=== PATIENT | male | born 1960 | race African-American/Black ===

== ENCOUNTER 2020-11-05 09:36 | Inpatient (IN) | payer MEDICARE, MEDICAID, SELFPAY ==
[2020-11-05] VITALS (11 sets, daily range): BP systolic 139–176; BP diastolic 57–78; PULSE 60–65; RESP 16–20; TEMP 36.2–37.1; O2SAT 93–96; BMI 30.2; BMI 28.4
--- NOTE | 2020-11-05 09:56 | EKG12_ITS ---
Test Reason : SOB Blood Pressure : / mmHG Vent. Rate : 064 BPM Atrial Rate : 064 BPM P-R Int : 210 ms QRS Dur : 092 ms QT Int : 422 ms P-R-T Axes : 025 004 104 degrees QTc Int : 435 ms Sinus rhythm with 1st degree A-V block Inferior infarct , age undetermined Anteroseptal infarct , age undetermined ST & T wave abnormality, consider lateral ischemia Abnormal ECG Confirmed by STEVE CERVANTES MD ([id number]), publications editor PAIGE MORALES ([id number]) on 11/09/2020 1:00:24 PM Referred By: WU Confirmed By:STEVE CERVANTES MD
--- NOTE | 2020-11-05 09:58 | EDS_ITS ---
HPI History of Present Illness Chief Complaint: Shortness of Breath Informant: patient Onset/Context/Timing Onset: Days Context: gradual Timing: Continuous Quality: Positive for Dyspnea on exertion and Orthopnea; Negative for Wheezing Current Severity: Mild Maximum Severity: Mild Worsened by: Lying flat Relieved by: Oxygen Associated Symptoms Negative for cough, rhinorrhea, post nasal drip, ear pain, fever, sore throat, subjective, chills, sweats, clear sputum, white sputum, yellow sputum or green sputum Chest Pain: Negative for None Narrative Narrative: 60-year-old male history of hypertension, diabetes and end-stage renal disease. He is normally dialyzed now on Monday. He had a full run supposedly on Monday and was post be dialyzed today. Squad was called he is at [facility] for shortness of breath. At that time his room air pulse ox was 84%. He is not on oxygen at home. He also has a history of CHF. He denies any chest pain or fever. States when he gets dialyzed now he does not of the taking off enough because his left leg continues to remain swollen. His right leg below the knee is amputated. PE Risk Factors: Negative for Cancer, OCP + Smoking + > 35, Prior DVT or PE, Recent immobilization, Recent surgery and Recent travel Prior similar symptoms: Yes Recent Illness/Hospitalization: Yes [facility] Medical History (Updated 11/05/20 @ 11:00 by Ann Marie Walters) Chronic kidney disease (CKD) Congestive heart failure (CHF) Diabetes mellitus HLD (hyperlipidemia) HTN (hypertension) Home Medications amlodipine 10 mg PO DAILY 11/05/20 [History Last Taken Unknown] aspirin 81 mg PO DAILY 11/05/20 [History Last Taken Unknown] calcium acetate(phosphat bind) 667 mg PO BID 11/05/20 [History Last Taken Unknown] carvedilol [Coreg] 25 mg PO BID 11/05/20 [History Last Taken Unknown] clonidine HCl [Catapres] 0.3 mg PO TID 11/05/20 [History Last Taken Unknown] doxazosin [Cardura] 4 mg PO QHS 11/05/20 [History Last Taken Unknown] folic acid 1 mg PO DAILY 11/05/20 [History Last Taken Unknown] hydralazine 100 mg PO TID 11/05/20 [History Last Taken Unknown] insulin lispro [Humalog KwikPen Insulin] 0 unit SUBCUT TID 11/05/20 [History Last Taken Unknown] lorazepam [Ativan] 0.5 mg PO TID PRN 11/05/20 [History Last Taken Unknown] oxymetazoline [Afrin (oxymetazoline)] 2 spray INTRANASAL Q12H PRN 11/05/20 [History Last Taken Unknown] polyethylene glycol 3350 [GlycoLax] 17 g PO DAILY 11/05/20 [History Last Taken Unknown] torsemide 100 mg PO DAILY 11/05/20 [History Last Taken Unknown] Allergy/AdvReac Type Severity Reaction Status Date / Time hydrocodone Allergy PT UNSURE Verified 11/05/20 09:38 OF REACTION metoprolol Allergy PT UNSURE Verified 11/05/20 09:38 OF REACTION Social History Smoking Status: Current some day smoker tobacco type: cigars ROS ROS ED ROS Narrative Denies recent illness. Review of Systems ROS Unobtainable: Denies due to encephalopathy Constitutional Constitutional ED: Denies chills or fever(s) Eyes Eyes: Denies change in vision ENT ENT ED: Denies ear pain or sore throat Cardiovascular Cardiovascular: Reports orthopnea; Denies chest pain or palpitations Respiratory/Chest Respiratory/Chest: Reports dyspnea and orthopnea; Denies cough, dyspnea on exertion or sputum Gastrointestinal Gastrointestinal: Denies abdominal pain, constipation, diarrhea, nausea or vomiting Genitourinary Genitourinary ED: Denies dysuria Musculoskeletal Musculoskeletal: Denies myalgias Integumentary Denies rash Neurologic Neurologic: Denies headache(s) Psychiatric Psychiatric: Denies depression Endocrine Endocrinology: Denies polyuria Hematologic/Lymphatic Hematologic/Lymphatic: Denies easy bruising Allergic/Immunologic Allergic/Immunologic ED: Denies urticaria EXAM Physical Exam Narrative Exam Narrative: Obese male no acute distress on oxygen his pulse ox is 93% on 3 L. H EENT exam unremarkable. Neck nontender no JVD. Lungs clear to auscultation. Heart regular rhythm for over 6 talk ejection murmur. Abdomen soft nontender normal bowel sounds no peritoneal signs. Moving all 4 extremities. Right low the knee amputation. Left lower extremity has 1+ pitting edema. He has a left upper arm vascular fistula for dialysis and that has a good thrill. Neurologically is awake alert with no focal motor deficits. Const Vital Signs: 11/05/20 09:40 11/05/20 09:43 11/05/20 10:07 Temperature 98.5 F Temperature Source Temporal Pulse Rate 65 Respiratory Rate 18 Respiratory Effort Short of Breath Labored Respiratory Depth Normal Respiratory Pattern Normal Blood Pressure 147/71 H Blood Pressure Mean 96 Pulse Ox 93 94 Oxygen Delivery Method Nasal Cannula Nasal Cannula Nasal Cannula Oxygen Flow Rate (L/min) 3 3 3 Positive well nourished and well developed General Appearance ED: well developed and NAD HEENT Reports moist mucous membranes atraumatic; Negative for trauma or tenderness Eyes PERRL and EOMs intact bilaterally Neck no lymphadenopathy, supple, no meningeal signs and no JVD General: Negative for tenderness Resp normal respiratory effort and clear to auscultation bilaterally Auscultation: Negative for rales, rhonchi or wheezes Cardio regular rate and regular rhythm; Negative for no murmurs GI non-tender, non-distended and no masses Auscultation: normoactive bowel sounds Palpation: soft; Negative for tender or guarding Back/Spine normal to inspection Extremity normal to inspection General Extremety ED: Yes edema; Negative for tenderness General Extremity: edema Neuro oriented x3 Sensorium / Orientation: alert, oriented to person, oriented to place and orientation impaired; Negative for confused, lethargic or stuporous Motor Exam: strength 5/5 throughout Psych mental status grossly normal Skin Lesions: no lesions Rashes: no rashes MDM MDM MDM Narrative Medical decision making narrative: 52-year-old male with shortness of breath. History of end-stage renal disease, hypertension, CHF and diabetes. He was post to be dialyzed today. He complains of orthopnea. And continued left leg swelling even after dialysis. Clinically I think this may be volume overload. Will undergo cardiac work-up. Chest x-ray is consistent with CHF and pleural effusions. He will be treated with IV Lasix. The hospitalist on page for admission. He will most likely also need dialysis. Lab Data Attestation: I reviewed the patient's lab results. Lab results narrative: CBC shows white count 9. Hemoglobin 8.5 consistent with his end-stage renal disease on dialysis. Electrolytes show sodium 131. Gap at 9. Creatinine 7.2. High-sensitivity troponin of 20 and a BNP of 2724. Labs: Laboratory Results - last 24 hr 11/05/20 11/05/20 11/05/20 09:50 09:50 09:50 WBC 9.0 RBC 3.10 L Hgb 8.5 L Hct 27.6 L MCV 89.0 MCH 27.4 MCHC 30.8 L RDW Std Deviation 52.6 H RDW Coeff of Kandis 16.3 H Plt Count 269 MPV 8.7 Immature Gran % (Auto) 0.600 Neut % (Auto) 84.8 H Lymph % (Auto) 6.0 L Chambers % (Auto) 7.2 Eos % (Auto) 1.1 Baso % (Auto) 0.3 Absolute Neuts (auto) 7.6 Absolute Lymphs (auto) 0.54 L Nucleated RBC % 0 Hypochromasia 1+ Sodium 131 L Potassium 3.9 Chloride 96 L Carbon Dioxide 26.0 Anion Gap 9 BUN 44 H Creatinine 7.25 H Estim Creat Clear Calc 11.83 Est GFR (MDRD) Af Amer 10 L Est GFR (MDRD) Non-Af 8 L BUN/Creatinine Ratio 6.1 L Glucose 205 H Calcium 8.5 Troponin I High Sens 20 B-Natriuretic Peptide 2724.4 H Radiography Chest X-Ray - ED: 1 View, Read by ED Physician and Read by Radiologist Diagnostic Testing: Radiology Impression Chest X-Ray 11/05/20 10:06 IMPRESSION: Bilateral pleural effusions left greater than right with bibasilar atelectasis. Superimposed CHF. Electronically Signed: Que Grey MD at 10:44 EDT , Service support , Portable single view chest x-ray shows bilateral pleural effusions left greater than right. And CHF. Interpreted by myself and radiologist and we agree. Rhythm Strip Rhythm Strip: Sinus Rhythm Rate: 64 Ectopy: None EKG Initial EKG: Attestation: I personally reviewed and interpreted this EKG as follows: Interpretation: Sinus Rhythm Comments: Sinus rhythm rate of 64 old inferior MS with first-degree AV block with a IA interval of 210. Discharge Plan Triage Chief Complaint: Shortness of Breath ED Provider: Jeronimo Dolan Dx/Rx/DC Orders Prescriptions: No Action lorazepam [Ativan] 0.5 mg Tablet 0.5 mg PO TID PRN (Reason: Anxiety) RF: 0 amlodipine 10 mg Tablet 10 mg PO DAILY RF: 0 aspirin 81 mg Tablet 81 mg PO DAILY RF: 0 Afrin (oxymetazoline) 0.05 % Mist 2 spray INTRANASAL Q12H PRN (Reason: Congestion) RF: 0 carvedilol [Coreg] 25 mg Tablet 25 mg PO BID RF: 0 polyethylene glycol 3350 [GlycoLax] 17 gram Powder In Packet 17 g PO DAILY RF: 0 clonidine HCl [Catapres] 0.3 mg Tablet 0.3 mg PO TID RF: 0 calcium acetate(phosphat bind) 667 mg Tablet 667 mg PO BID RF: 0 torsemide 100 mg Tablet 100 mg PO DAILY RF: 0 doxazosin [Cardura] 4 mg Tablet 4 mg PO QHS RF: 0 folic acid 1 mg Tablet 1 mg PO DAILY RF: 0 insulin lispro [Humalog KwikPen Insulin] 100 unit/mL Insulin Pen 0 unit SUBCUT TID RF: 0 hydralazine 100 mg Tablet 100 mg PO TID RF: 0 Primary Care Provider: Care Physician,No Primary
[2020-11-05 10:02] LABS: Absolute Lymphocyte Count 0.54 X10^3/uL (0.83-4.51); Absolute Neutrophil Count 7.6 X10^3/uL (2.0-7.7); Basophil# 0.03 X10^3/uL; Basophil% 0.3 % (0-1); Eosinophils% 1.1 % (0-5); Hematocrit 27.6 % (40-54); Hemoglobin 8.5 g/dL (13.0-16.5); Lymphocyte # 0.54 X10^3/ul (0.83-4.51); Mean Corp Hgb Conc 30.8 g/dL (32-36); Mean Corpuscular Hgb 27.4 pg (27.0-32.0); Mean Platelet Vol. 8.7 fl (6.2-12.0); Monocyte# 0.65 X10^3/uL; Monocyte% 7.2 % (0-10); NRBC Flagged by Analyzer 0 % (0-5); Neutrophil # 7.64 X10^3/uL (2.7-7.7); Neutrophil % 84.8 % (47-70); POSITIVE DIFFERENTIAL YES; Platelet Count 269 K/mm3 (150-450); RBC Distribution Width CV 16.3 % (11.6-14.6); RBC Distribution Width SD 52.6 fl (35.1-43.9)
[2020-11-05 10:03] LABS: Differential Indicated SCAN CRITERIA MET
--- NOTE | 2020-11-05 10:06 | RAD_ITS ---
STUDY: X-RAY CHEST REASON FOR EXAM: Male, 60 years old. Chest pain TECHNIQUE: Single AP portable view of the chest. COMPARISON: None. FINDINGS: EKG electrodes are seen. A vascular stent is seen in the left axillary region. Surgical clips are seen in the right axillary region. Moderate sized left pleural effusion. Small right pleural effusion. Bibasilar infiltration and/or atelectasis worse on the left side. This is superimposed on basilar congestion and mild degree of CHF. Normal size heart. Normal mediastinum and stacy. Normal visualized pulmonary arteries. Normal visualized aortic arch and descending thoracic aorta. Normal visualized thoracic spine. Prior fusion of the lower cervical spine There is no demonstrated abnormality of the visualized soft tissue structures of the upper abdomen. RAD/Chest 1 View (Portable) IMPRESSION: Bilateral pleural effusions left greater than right with bibasilar atelectasis. Superimposed CHF. Electronically Signed: Que Grey MD at 10:44 EDT , Service support ,
[2020-11-05 10:19] LABS: Anion Gap 9 (5-15); BUN 44 mg/dL (7-18); BUN/Creat Ratio 6.1 RATIO (10-20); Calcium,Total 8.5 mg/dL (8.5-10.1); Chloride 96 mmol/L (98-107); Creatinine, Serum 7.25 mg/dL (0.70-1.30); EST Glomerular Filtration Rate 8 mL/min (>60); Est Glom Filt Rate - Afr Amer 10 mL/min (>60); Estimated Creatinine Clearance 11.83 ml/min; Glucose 205 mg/dL (74-106); Potassium 3.9 mmol/L (3.5-5.1); Sodium Level 131 mmol/L (136-145); Troponin-I HS 20 pg/mL (3.0-78.0)
[2020-11-05] MEDS: HYDROcodone Bitartrate/Apap 5/325 Tablet PO (10:26)
[2020-11-05 10:38] LABS: Hypochromasia 1+
--- NOTE | 2020-11-05 12:04 | HP.PCM.HOS_ITS ---
HPI - General General Date of Admission: 11/05/20 HPI Narrative LESLIE REBOLLAR, is a 60 M with a PMH as outlined who presents with a complaint of shortness of breath. He usually gets his care at [facility], but is now at [facility]. He has a history of ESRD, on HD TTS, and says he doesnt think enough fluid is taken off. He had a full dialysis on Monday, but didnt think enough was taken off. He started having shortness of breath with associated orthopnea and PND. He denies any chest pain, palpitations, dizziness, nausea or vomiting. He admitted to lower extremity edema. Vitals showed BP of 158/57, [place] of 62, R of 16 and oxygen sats of 94% on 3L of oxygen. CBC showed hemoglobin of 8.5 with WBC of 9 and platelets of 269. Chemistry shows sodium of 131 with bicarb of 26 and creatinine of 7.25. BNP was 2724. Chest x-ray showed bilateral pleural effusions with the left greater than right with bibasilar atelectasis and superimposed CHF. He has been admitted to manage for acute on chronic exacerbation of heart failure as well as likely fluid overload from ESRD. [facility] Medical History (Updated 11/05/20 @ 12:[address] Jeronimo Dolan MD) Chronic kidney disease (CKD) Congestive heart failure (CHF) Diabetes mellitus HLD (hyperlipidemia) HTN (hypertension) Home Medications B complex-vitamin C-folic acid [Renal Multivitamin Formula] 1 tab PO DAILY 11/05/20 [History Last Taken Unknown] amlodipine 10 mg PO DAILY 11/05/20 [History Last Taken Unknown] aspirin 81 mg PO DAILY 11/05/20 [History Last Taken Unknown] atorvastatin [Lipitor] 80 mg PO DAILY 11/05/20 [History Last Taken Unknown] calcium acetate(phosphat bind) 667 mg PO BID 11/05/20 [History Last Taken Unknown] carvedilol [Coreg] 25 mg PO BID 11/05/20 [History Last Taken Unknown] cholecalciferol (vitamin D3) [Vitamin D3] 25 mcg PO DAILY 11/05/20 [History Last Taken Unknown] clonidine HCl [Catapres] 0.3 mg PO TID 11/05/20 [History Last Taken Unknown] doxazosin [Cardura] 4 mg PO QHS 11/05/20 [History Last Taken Unknown] folic acid 1 mg PO DAILY 11/05/20 [History Last Taken Unknown] hydralazine 100 mg PO TID 11/05/20 [History Last Taken Unknown] insulin glargine [Lantus Solostar U-100 Insulin] 18 unit SUBCUT DAILY 11/05/20 [History Last Taken Unknown] insulin lispro [Humalog KwikPen Insulin] 0 unit SUBCUT TID 11/05/20 [History Last Taken Unknown] isosorbide mononitrate 30 mg PO DAILY 11/05/20 [History Last Taken Unknown] lorazepam [Ativan] 0.5 mg PO TID PRN 11/05/20 [History Last Taken Unknown] melatonin 5 mg PO QHS 11/05/20 [History Last Taken Unknown] omeprazole 20 mg PO BID 11/05/20 [History Last Taken Unknown] oxycodone-acetaminophen [Percocet] 1 tab PO Q8H PRN 11/05/20 [History Last Taken Unknown] oxymetazoline [Afrin (oxymetazoline)] 2 spray INTRANASAL Q12H PRN 11/05/20 [History Last Taken Unknown] polyethylene glycol 3350 [GlycoLax] 17 g PO DAILY 11/05/20 [History Last Taken Unknown] torsemide 100 mg PO DAILY 11/05/20 [History Last Taken Unknown] trazodone 50 mg PO QHS 11/05/20 [History Last Taken Unknown] Allergy/AdvReac Type Severity Reaction Status Date / Time hydrocodone Allergy PT UNSURE Verified 11/05/20 09:38 OF REACTION metoprolol Allergy PT UNSURE Verified 11/05/20 09:38 OF REACTION Social History Smoking Status: Current some day smoker tobacco type: cigars ROS Constitutional Constitutional: Reports change in weight, fatigue, malaise and weakness; Denies chills or fever(s) Eyes Eyes: Denies change in vision ENT HEENT: Denies abnormal hearing, dysphagia, headache(s) or nasal congestion Cardiovascular Cardiovascular: Reports dyspnea on exertion, edema and orthopnea; Denies chest pain, lightheadedness, palpitations, paroxysmal nocturnal dyspnea, rapid heart rate or syncope Respiratory/Chest Respiratory/Chest: Reports dyspnea, excessive phlegm production, shortness of breath at rest and shortness of breath with exertion; Denies cough, hemoptysis or productive cough Gastrointestinal Gastrointestinal: Denies abdominal pain, constipation, diarrhea, nausea or vomiting Genitourinary Genitourinary: Denies burning urination or dysuria Musculoskeletal Musculoskeletal: Denies arthralgias Neurologic Neurologic: Denies confusion, dizziness, focal weakness, seizures or syncope Psychiatric Psychiatric: Denies anxiety or depression Endocrine Endocrinology: Denies change in body appearance Hematologic/Lymphatic Hematologic/Lymphatic: Denies anemia Vital Signs Vital Signs Vital Signs: 11/05/20 09:40 11/05/20 09:43 11/05/20 10:07 Temperature 98.5 F Temperature Source Temporal Pulse Rate 65 Respiratory Rate 18 Respiratory Effort Short of Breath Labored Respiratory Depth Normal Respiratory Pattern Normal Blood Pressure 147/71 H Blood Pressure Mean 96 Pulse Ox 93 94 Oxygen Delivery Method Nasal Cannula Nasal Cannula Nasal Cannula Oxygen Flow Rate (L/min) 3 3 3 11/05/20 11:40 Temperature Temperature Source Pulse Rate 62 Respiratory Rate 16 Respiratory Effort Respiratory Depth Respiratory Pattern Blood Pressure 148/57 H Blood Pressure Mean 87 Pulse Ox 94 Oxygen Delivery Method Nasal Cannula Oxygen Flow Rate (L/min) 3 Weight Weight: 216 lb 14.958 oz Body Mass Index (BMI) 30.2 Physical Exam Const alert and oriented x3 General Appearance: cooperative HEENT normocephalic, head/scalp atraumatic, hearing grossly normal bilaterally and moist oral mucous membranes Eyes PERRL, EOMs intact bilaterally and conjunctivae normal Neck no lymphadenopathy Resp Resp Narrative: diminished breath sounds bibasally, no wheezing, no crackles, on 3L of oxygen by nasal canula Cardio regular rate, regular rhythm, S1 normal heart sound, S2 normal heart sound and no murmurs GI soft to palpation and non-tender GI Narrative: mild abdominal distension with positive fluid thrill. Extremity normal to inspection and full ROM Extremity Narrative: LLEl LE pitting pedal edema, RLE BKA Peripheral Pulses: Yes pulses 2+ throughout Skin no rashes or lesions noted Neuro oriented x3, CN's II-XII intact bilaterally and moves all extremities Sensorium / Orientation: awake and alert Psych affect normal Results Lab / Micro Data Result Diagrams: 11/05/20 09:50 11/05/20 09:50 Labs: Laboratory Results - last 24 hr 11/05/20 09:50: WBC 9.0, RBC 3.10 L, Hgb 8.5 L, Hct 27.6 L, MCV 89.0, MCH 27.4, MCHC 30.8 L, RDW Std Deviation 52.6 H, RDW Coeff of Kandis 16.3 H, Plt Count 269, MPV 8.7, Immature Gran % (Auto) 0.600, Neut % (Auto) 84.8 H, Lymph % (Auto) 6.0 L, [place] % (Auto) 7.2, Eos % (Auto) 1.1, Baso % (Auto) 0.3, Absolute Neuts (auto) 7.6, Absolute Lymphs (auto) 0.54 L, Nucleated RBC % 0, Hypochromasia 1+ 11/05/20 09:50: Sodium 131 L, Potassium 3.9, Chloride 96 L, Carbon Dioxide 26.0, Anion Gap 9, BUN 44 H, Creatinine 7.25 H, Estim Creat Clear Calc 11.83, Est GFR (MDRD) Af Amer 10 L, Est GFR (MDRD) Non-Af 8 L, BUN/Creatinine Ratio 6.1 L, Glucose 205 H, Calcium 8.5, Troponin I High Sens 20 11/05/20 09:50: B-Natriuretic Peptide 2724.4 H Micro: Microbiology 11/05/20 10:30 Interface Orders SARS-CoV-2 Antigen (Rapid) - Final Rhythm Strip Rhythm Strip: Sinus Rhythm Rate: 64 Ectopy: None Radiology Impression Chest X-Ray 11/05/20 10:06 IMPRESSION: Bilateral pleural effusions left greater than right with bibasilar atelectasis. Superimposed CHF. Electronically Signed: Que Grey MD at 10:44 EDT , Service support , Assessment & Plan Assessment/Plan (1) CHF (congestive heart failure): (2) End stage chronic kidney disease: (3) Hypoxia: PLAN: #Acute on chronic exacerbation of heart failure with unknown EF * admit to PCU with telemetry * diurese with IV lasix if he's making urine * CXR showed bilateral pleural effusion, worse on right than left * consult nephrology for dialysis * monitor intake and output * fluid restriction to 1500cc daily. * CXR showed bilateral pleural effusions worse on the left than the right. * EKG showed questionable t wave inversions in lateral leads. initial tropoinn * #ESRD: * on HD T/T/S. doesnt think enough fluid is being taken off. * says he used to go for dialysis in [place] where 4-5L of fluid was taken off; now he goes to [place], where only 3-3.5L of fluid is taken off * hasnt yet had dialysis today * consult nephrology for dialysis * #Hypertension: * on amlodipine, carvedilol and hydralazine as well as clonidine and torsemide. 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 #Type 2 diabetes mellitus * on lantus 18 units daily. ISS. Accuchecks ACHS * #Hyperlipidemia: on statin. DVT prophylaxis: lovenox, renally dosed Code status: full code * Patient counseled extensively about different types of CODE STATUS including full code, DNR CCA and DNR CCA. Patient elects to be full code, and would want to be intubated and have CPR if needed. * Total [id number] time 17 minutes. Charges/Coding Visit Charges Inpatient E&M: 92957 Init Hosp L3 Procedures Hospitalists Procedures: 47477 Advncd Care Plan 30 Min
[2020-11-05] MEDS: morphine 8 MG/ML Syringe 6 MG IV (12:32)
[2020-11-05] MEDS: Furosemide 100 MG/10 ML Vial 60 MG IV (12:32)
--- NOTE | 2020-11-05 13:19 | PCS.PANDOC ---
PANDEMIC DOCUMENTATION INITIATED: Date: 11/02/2020 Time: 190
[2020-11-05] MEDS: cloNIDine HCl 0.1 MG Tablet 0.3 MG PO (13:45)
[2020-11-05] MEDS: LORazepam 0.5 MG Tablet PO ×2 (13:45→21:40)
[2020-11-05] MEDS: Ondansetron 4 MG/2 ML Vial IV (13:46)
[2020-11-05] MEDS: hydrALAZINE 50 MG Tablet 100 MG PO (13:46)
[2020-11-05] MEDS: 0.9% Saline Lock 10 ML Syringe IV ×2 (13:46→17:32)
[2020-11-05 14:30] LABS: Troponin-I HS 18 pg/mL (3.0-78.0)
[2020-11-05] MEDS: Calcium Acetate 667 MG Capsule PO (16:13)
[2020-11-05] MEDS: Carvedilol 25 MG Tablet PO (16:13)
[2020-11-05 17:19] LABS: Troponin-I HS 20 pg/mL (3.0-78.0)
[2020-11-05 17:30] LABS: Bedside Glucose 159 mg/dL (70-110)
[2020-11-05] MEDS: Furosemide 40 MG/4 ML Vial IV (17:32)
[2020-11-05] MEDS: Pantoprazole Sodium 20 MG Tablet PO (17:32)
[2020-11-05] MEDS: oxyCODONE 5 MG Tablet 10 MG PO (19:55)
[2020-11-05] MEDS: Sodium Chloride 0.65% 1 SPRAY SPRAY.BTL 2 SPRAY NASAL (21:41)
[2020-11-05] MEDS: MELATONIN 10 MG TABLET 5 MG PO (22:48)
[2020-11-05] MEDS: traZODone 50 MG Tablet PO (22:48)
[2020-11-05] MEDS: Atorvastatin Calcium 80 MG Tablet PO (22:48)
[2020-11-05] MEDS: Insulin Lispro 100 UNIT/ML INSULN.PEN SC (22:49)
[2020-11-05 23:41] LABS: Bedside Glucose 200 mg/dL (70-110)
[2020-11-06] VITALS (17 sets, daily range): BP systolic 128–177; BP diastolic 57–78; PULSE 57–73; RESP 14–18; TEMP 36.6–37.5; O2SAT 89–100
--- NOTE | 2020-11-06 | FLU_PTH ---
PATIENT: LESLIE REBOLLAR LOC: [facility] U#:[id number] AGE/SX: 60/M ROOM: [facility] RE11/05/[address]: Dr. Anabelle Moore DO : 1960 BED: 1 DIS: 11/14/2020 SPEC #: [id number] RECD: 11/06/20 14:56 STATUS: SOUT REQ #: [id number] KENRICK: 11/06/20 00:[address]: Anabelle Moore DEPT: CYTOLOGY RECD BY: Jamie Gonzalez ENTERED: 11/09/20 08:06 SP TYPE: Fluid OTHR DR: MD Dr. Judith Jacques MD Dr. Kathryn Lee, DO Dr. Nana Yaa Koram, MD Tissues: THORACIC FLUID Procedures: Special Stain Group II Surgery Specimen Level IV Cytospin Fluid Comments: @ Ordering doctor for SSII edited from to @ by RGOOD at 11/09/20 1333 @ Ordering doctor for SUIV edited from to @ by RGOOD at 11/09/20 1333 @ Ordering doctor for CYSPIN edited from to @ by RGOOD at 11/09/20 1333 @ Submitting doctor edited from to @ by RGOOD at 11/09/20 1333 @ Ordering doctor for SSII edited from to @ by RGOOD at 11/10/20 1024 @ Ordering doctor for SUIV edited from to @ by RGOOD at 11/10/20 1024 @ Ordering doctor for CYSPIN edited from to @ by RGOOD at 11/10/20 1024 @ Submitting doctor edited from to @ by HOANGOD at 11/10/20 1024 HEADER OPERATION: Thoracentesis left chest PRE-OP DIAGNOSIS: Pleural effusion, CHF TISSUE SUBMITTED: Thoracentesis fluid for cytology DIAGNOSIS CYTOLOGY Thoracentesis fluid for cytology (cytospin and cell block): Negative for malignant cells. See comment. SJ:sanjay 11/10/2020 COMMENT Clinical correlation and appropriate follow up are necessary. CYTOLOGY STUDY Slides are reviewed. CYTOLOGY GROSS Received is 100 ml of yellow cloudy fluid labeled with the patient's name and and designated per the requisition as thoracentesis. Submitted for cytology preparation including cell block. / sanjay 11/09/2020 TC:5 CPT: 28221, 59919
[2020-11-06] MEDS: hydrALAZINE 50 MG Tablet 100 MG PO ×4 (00:45→21:27)
[2020-11-06] MEDS: cloNIDine HCl 0.1 MG Tablet 0.3 MG PO ×4 (00:45→21:27)
[2020-11-06] MEDS: Doxazosin 4 MG Tablet PO ×2 (00:45→21:27)
--- NOTE | 2020-11-06 01:12 | DIALYSIS ---
Pt tolerated 3hr HD tx well. Net UF -4400ml. See flow record for tx data.
[2020-11-06] MEDS: 0.9% Saline Lock 10 ML Syringe IV ×2 (04:27→18:57)
[2020-11-06] MEDS: Ondansetron 4 MG/2 ML Vial IV (04:27)
[2020-11-06] MEDS: Acetaminophen 325 MG Tablet PO (04:28)
[2020-11-06] MEDS: oxyCODONE 5 MG Tablet 10 MG PO ×2 (04:28→15:10)
[2020-11-06 06:46] LABS: Bedside Glucose 223 mg/dL (70-110)
[2020-11-06 07:13] LABS: Absolute Neutrophil Count 5.9 X10^3/uL (2.0-7.7); Basophil# 0.03 X10^3/uL; Basophil% 0.4 % (0-1); Eosinophil# 0.11 X10^3/uL; Eosinophils% 1.5 % (0-5); Hematocrit 25.1 % (40-54); Hemoglobin 7.9 g/dL (13.0-16.5); Lymphocyte % 8.3 % (19-41); Mean Corp Hgb Conc 31.5 g/dL (32-36); Mean Corpuscular Hgb 27.4 pg (27.0-32.0); Mean Corpuscular Volume 87.2 fL (80-94); Monocyte% 8.3 % (0-10); NRBC Flagged by Analyzer 0 % (0-5); Neutrophil % 81.1 % (47-70); POSITIVE DIFFERENTIAL YES; Platelet Count 249 K/mm3 (150-450); RBC Distribution Width CV 16.6 % (11.6-14.6); RBC Distribution Width SD 52.9 fl (35.1-43.9); Red Blood Count 2.88 M/mm3 (4.6-6.2); White Blood Count 7.3 K/mm3 (4.4-11.0)
[2020-11-06 07:22] LABS: Differential Indicated SCAN CRITERIA MET
[2020-11-06 07:40] LABS: Anion Gap 6 (5-15); BUN 29 mg/dL (7-18); BUN/Creat Ratio 5.6 RATIO (10-20); Calcium,Total 8.1 mg/dL (8.5-10.1); Chloride 97 mmol/L (98-107); Creatinine, Serum 5.15 mg/dL (0.70-1.30); EST Glomerular Filtration Rate 12 mL/min (>60); Est Glom Filt Rate - Afr Amer 15 mL/min (>60); Estimated Creatinine Clearance 17.16 ml/min; Glucose 217 mg/dL (74-106); Potassium 4.1 mmol/L (3.5-5.1); Sodium Level 132 mmol/L (136-145)
[2020-11-06] MEDS: Insulin Lispro 100 UNIT/ML INSULN.PEN SC ×3 (08:27→21:28)
[2020-11-06] MEDS: Vitamin B Comp W-C Capsule 1 CAP PO (08:29)
[2020-11-06] MEDS: Aspirin 81 MG TAB.CHEW PO (08:29)
[2020-11-06] MEDS: LORazepam 0.5 MG Tablet PO ×2 (08:29→16:34)
[2020-11-06] MEDS: Polyethylene Glycol 3350 17 GM PACKET PO (08:29)
[2020-11-06] MEDS: Pantoprazole Sodium 20 MG Tablet PO ×2 (08:30→21:27)
[2020-11-06] MEDS: amLODIPine 10 MG Tablet PO (08:30)
[2020-11-06] MEDS: Furosemide 40 MG/4 ML Vial IV ×2 (08:30→18:57)
[2020-11-06] MEDS: Carvedilol 25 MG Tablet PO ×2 (08:30→16:37)
[2020-11-06] MEDS: Folic Acid 1 MG Tablet PO (08:30)
[2020-11-06] MEDS: Calcium Acetate 667 MG Capsule PO ×2 (08:30→16:37)
[2020-11-06] MEDS: Isosorbide Mononitrate 30 MG Tablet PO (08:31)
[2020-11-06] MEDS: Cholecalciferol (VIT D3) 25 MCG TABLET (1,000 UNITS) PO (08:31)
--- NOTE | 2020-11-06 09:23 | CON.PCM.RE_ITS ---
Assessment & Plan Assessment/Plan (1) End stage chronic kidney disease: (2) Anemia: (3) CHF (congestive heart failure): (4) Hypoxia: PLAN: Patient usually dialyzes on Monday and Monday. Patient had hemodialysis and last night with 4.4 L ultrafiltration. We will plan for another session today with goal of fluid removal of 4 L. Hemodialysis access is left upper extremity fistula. Hemoglobin below target. We will give the patient 1 dose of RONNY. Patient has bilateral pleural effusion with atelectasis. He will benefit from left-sided paracentesis discussed this with the primary service.. On oxygen to keep oxygen saturation more than 92% Rest of the treatment as per the primary service. Discussed with Dr. Treasure Vinson MD HPI Consult Data Date of Consult: 11/06/20 HPI Narrative HPI Narrative: LESLIE REBOLLAR, is a 60 M past medical history of end-stage renal disease and TTS hemodialysis schedule, hypertension, CHF, diabetes and hyperlipidemia. Patient usually gets dialyzed at [facility]. Patient is currently residing at [facility]. Patient was brought from there to the hospital for acute shortness of breath. Patient was found to have CHF with bilateral pleural effusion left more than right. I was contacted yesterday and we did dialysis last night with 4.4 L fluid removal. Patient still complained of shortness of breath and legs edema. He has right below-knee amputation. His left leg is edematous +3 No chest pain. No nausea no vomiting. Review of system: 12 system review is negative except what mentioned in HPI [facility] Medical History (Updated 11/06/20 @ 09:[address] Gurvinder Vinson MD) Chronic kidney disease (CKD) Congestive heart failure (CHF) Diabetes mellitus HLD (hyperlipidemia) HTN (hypertension) Home Medications B complex-vitamin C-folic acid [Renal Multivitamin Formula] 1 tab PO DAILY 11/05/20 [History Last Taken 11/04/20 09:00] amlodipine 10 mg PO DAILY 11/05/20 [History Last Taken 11/04/20 09:00] aspirin 81 mg PO DAILY 11/05/20 [History Last Taken 11/04/20 09:00] atorvastatin [Lipitor] 80 mg PO DAILY 11/05/20 [History Last Taken 11/04/20 21:00] calcium acetate(phosphat bind) 667 mg PO BID 11/05/20 [History Last Taken 11/04/20 17:00] carvedilol [Coreg] 25 mg PO BID 11/05/20 [History Last Taken 11/04/20 21:00] cholecalciferol (vitamin D3) [Vitamin D3] 25 mcg PO DAILY 11/05/20 [History Last Taken 11/04/20 09:00] clonidine HCl [Catapres] 0.3 mg PO TID 11/05/20 [History Last Taken 11/05/20 14:00] doxazosin [Cardura] 4 mg PO QHS 11/05/20 [History Last Taken 11/04/20 21:00] folic acid 1 mg PO DAILY 11/05/20 [History Last Taken 11/04/20 09:00] hydralazine 100 mg PO TID 11/05/20 [History Last Taken 11/05/20 14:00] insulin glargine [Lantus Solostar U-100 Insulin] 18 unit SUBCUT DAILY 11/05/20 [History Last Taken 11/04/20 21:00] insulin lispro [Humalog KwikPen Insulin] 0 unit SUBCUT TID 11/05/20 [History Last Taken 11/05/20 12:00] isosorbide mononitrate 30 mg PO DAILY 11/05/20 [History Last Taken 11/04/20 09:00] lorazepam [Ativan] 0.5 mg PO TID PRN 11/05/20 [History Last Taken 11/05/20 14:00] melatonin 5 mg PO QHS 11/05/20 [History Last Taken 11/04/20 21:00] omeprazole 20 mg PO BID 11/05/20 [History Last Taken 11/04/20 21:00] oxycodone-acetaminophen [Percocet] 1 tab PO Q8H PRN 11/05/20 [History Last Taken Unknown] oxymetazoline [Afrin (oxymetazoline)] 2 spray INTRANASAL Q12H PRN 11/05/20 [History Last Taken 11/05/20 09:00] polyethylene glycol 3350 [GlycoLax] 17 g PO DAILY 11/05/20 [History Last Taken 11/04/20 09:00] torsemide 100 mg PO DAILY 11/05/20 [History Last Taken 11/04/20 09:00] trazodone 50 mg PO QHS 11/05/20 [History Last Taken 11/04/20 21:00] Allergy/AdvReac Type Severity Reaction Status Date / Time hydrocodone Allergy PT UNSURE Verified 11/05/20 09:38 OF REACTION metoprolol Allergy PT UNSURE Verified 11/05/20 09:38 OF REACTION Social History Smoking Status: Current some day smoker tobacco type: cigars Physical Exam Narrative Patient is awake alert oriented. Neck no JVD. Mouth moist mucosa. Head atraumatic normocephalic. Eye. Normal conjunctiva. Heart S1-S2 RRR. Chest decreased breath sounds over both lung spaces left more than right. Abdomen: Soft positive bowel sounds. No tenderness Neurology: Awake alert oriented x3 no focal Extremity: +3 edema of left lower extremity Lab / Micro Data Result Diagrams: 11/06/20 06:55 11/06/20 06:55 Labs: Laboratory Results - last 24 hr 11/05/20 09:50: WBC 9.0, RBC 3.10 L, Hgb 8.5 L, Hct 27.6 L, MCV 89.0, MCH 27.4, MCHC 30.8 L, RDW Std Deviation 52.6 H, RDW Coeff of Kandis 16.3 H, Plt Count 269, MPV 8.7, Immature Gran % (Auto) 0.600, Neut % (Auto) 84.8 H, Lymph % (Auto) 6.0 L, [place] % (Auto) 7.2, Eos % (Auto) 1.1, Baso % (Auto) 0.3, Absolute Neuts (auto) 7.6, Absolute Lymphs (auto) 0.54 L, Nucleated RBC % 0, Hypochromasia 1+ 11/05/20 09:50: Sodium 131 L, Potassium 3.9, Chloride 96 L, Carbon Dioxide 26.0, Anion Gap 9, BUN 44 H, Creatinine 7.25 H, Estim Creat Clear Calc 11.83, Est GFR (MDRD) Af Amer 10 L, Est GFR (MDRD) Non-Af 8 L, BUN/Creatinine Ratio 6.1 L, Glucose 205 H, Calcium 8.5, Troponin I High Sens 20 11/05/20 09:50: B-Natriuretic Peptide 2724.4 H 11/05/20 14:00: Troponin I High Sens 18 11/05/20 15:20: Troponin I High Sens 20 11/05/20 16:17: POC Glucose 159 H 11/05/20 22:47: POC Glucose 200 H 11/06/20 06:27: POC Glucose 223 H 11/06/20 06:55: WBC 7.3, RBC 2.88 L, Hgb 7.9 L, Hct 25.1 L, MCV 87.2, MCH 27.4, MCHC 31.5 L, RDW Std Deviation 52.9 H, RDW Coeff of Kandis 16.6 H, Plt Count 249, MPV 9.0, Immature Gran % (Auto) 0.400, Neut % (Auto) 81.1 H, Lymph % (Auto) 8.3 L, [place] % (Auto) 8.3, Eos % (Auto) 1.5, Baso % (Auto) 0.4, Absolute Neuts (auto) 5.9, Absolute Lymphs (auto) 0.60 L, Nucleated RBC % 0 11/06/20 06:55: Sodium 132 L, Potassium 4.1, Chloride 97 L, Carbon Dioxide 29.0, Anion Gap 6, BUN 29 H, Creatinine 5.15 H, Estim Creat Clear Calc 17.16, Est GFR (MDRD) Af Amer 15 L, Est GFR (MDRD) Non-Af 12 L, BUN/Creatinine Ratio 5.6 L, Glucose 217 H, Calcium 8.1 L Micro: Microbiology 11/05/20 10:30 Interface Orders SARS-CoV-2 Antigen (Rapid) - Final Rhythm Strip Rhythm Strip: Sinus Rhythm Rate: 64 Ectopy: None Radiology Impression Chest X-Ray 11/05/20 10:06 IMPRESSION: Bilateral pleural effusions left greater than right with bibasilar atelectasis. Superimposed CHF. Electronically Signed: Que Grey MD at 10:44 EDT , Service support ,
--- NOTE | 2020-11-06 09:48 | US_ITS ---
PROCEDURE: ULTRASOUND GUIDED THORACENTESIS. DATE: 11/06/2020. INDICATION: Male, 60 years old. Left pleural effusion PHYSICIAN: Que Grey M.D. PROCEDURE: The risks, benefits, and alternatives to the procedure were explained to the patient. The specific risks of bleeding, infection, and pneumothorax requiring chest tube insertion were discussed and accepted. Written informed consent was obtained. Ultrasonographic evaluation of the left lower pleural space was carried out. An adequate pocket was identified. The patient was placed in the sitting, upright position. The overlying skin was prepped and draped in sterile fashion. 1% lidocaine was administered subcutaneously for local anesthesia. Under ultrasound guidance, a 5 [place] thoracentesis needle/catheter system was advanced into the left posterior lower pleural fluid collection. Approximately 2000 mL of edxter-colored fluid was drained. The catheter was removed, and a sterile dressing was applied. A specimen was collected and sent to the laboratory for analysis, as requested by the referring clinician. The patient tolerated the procedure well. A chest x-ray was ordered. US/Thoracentesis W US IMPRESSION: Ultrasound-guided left thoracentesis. Electronically Signed: Que Grey MD at 14:46 EDT , Service support ,
--- NOTE | 2020-11-06 09:50 | CASEMGMT ---
Patient is from [facility]. PAMELA called [facility] and left a message requesting Rosina in admissions call PAMELA back. Juli PFEIFFER
[2020-11-06] MEDS: Epoetin Alfa epbx 10,000 UNITS/ML 8000 UNIT IV (11:08)
[2020-11-06 11:11] LABS: Bedside Glucose 227 mg/dL (70-110)
[2020-11-06 11:35] LABS: Bedside Glucose 224 mg/dL (70-110)
--- NOTE | 2020-11-06 11:35 | CASEMGMT ---
SW received a return call from Rosina at [facility]. She said patient does not want to be at [facility] so their SW was working on getting him to another facility closer to home in [place]. She said it would probably be best to just move him to another facility from [facility]. The 2 facilities they were working on were [facility] and [facility]. SW went to patient's room. SW introduced self and role at [facility]. SW asked patient about going to another facility. He said he has to go back to [facility] as all of his stuff is there including his vehicle. SW asked if [facility] and [facility] were the correct facilities. He said he is not sure, but one was in [place] and the other was in [place]. PAMELA called Rosina at [facility] back and told her this information. She said if that is what he wants then that is fine, but it will be even longer before he will get to transfer. He will not be allowed to drive his vehicle to the next [place] [facility] facility. She said they would be more than willing to bring his stuff to [facility]. PAMELA told her SW will check with patient again. Juli Ladd MSW [place]
--- NOTE | 2020-11-06 11:48 | PN.HOSP_ITS ---
Subjective Subjective Patient seen and examined. He feels her shortness of breath is much better today. He has no other complaints. He is for dialysis today. Review of systems otherwise negative. He had 4.4L of fluid removed during dialysis yesterday. Objective Data Objective Data Vital Signs: Vital Signs Temp Pulse Resp BP Pulse Ox 98.3 F 58 L 18 145/73 H 99 11/06/20 10:46 11/06/20 10:46 11/06/20 10:46 11/06/20 10:46 11/06/20 11:01 Oxygen Flow Rate (L/min) 4 Oxygen Delivery Method Nasal Cannula Weight: 209 lb 7.026 oz Body Mass Index (BMI) 28.4 Intake & Output: Intake and Output for Last 24 Hours 11/04/20 11/05/20 11/06/20 23:59 23:59 23:59 Intake Total 240 / 240 Output Total 250 / 250 4400 / 4400 Balance -10 / -10 -4400 / -4400 Lab / Micro Data Result Diagrams: 11/06/20 06:55 11/06/20 06:55 Labs: Laboratory Results - last 24 hr 11/05/20 14:00: Troponin I High Sens 11/05/20 15:20: Troponin I High Sens 11/05/20 16:17: POC Glucose 159 H 11/05/20 22:47: POC Glucose 200 H 11/06/20 06:27: POC Glucose 223 H 11/06/20 06:55: WBC 7.3, RBC 2.88 L, Hgb 7.9 L, Hct 25.1 L, MCV 87.2, MCH 27.4, MCHC 31.5 L, RDW Std Deviation 52.9 H, RDW Coeff of Kandis 16.6 H, Plt Count 249, MPV 9.0, Immature Gran % (Auto) 0.400, Neut % (Auto) 81.1 H, Lymph % (Auto) 8.3 L, [place] % (Auto) 8.3, Eos % (Auto) 1.5, Baso % (Auto) 0.4, Absolute Neuts (auto) 5.9, Absolute Lymphs (auto) 0.60 L, Nucleated RBC % 0 11/06/20 06:55: Sodium 132 L, Potassium 4.1, Chloride 97 L, Carbon Dioxide 29.0, Anion Gap 6, BUN 29 H, Creatinine 5.15 H, Estim Creat Clear Calc 17.16, Est GFR (MDRD) Af Amer 15 L, Est GFR (MDRD) Non-Af 12 L, BUN/Creatinine Ratio 5.6 L, Glucose 217 H, Calcium 8.1 L 11/06/20 08:25: POC Glucose 227 H 11/06/20 11:11: POC Glucose 224 H Micro: Microbiology 11/05/20 10:30 Interface Orders SARS-CoV-2 Antigen (Rapid) - Final Rhythm Strip Rhythm Strip: Sinus Rhythm Rate: 64 Ectopy: None Physical Exam Const alert and oriented x3 General Appearance: cooperative Exam Limitations: no limitations HEENT normocephalic, head/scalp atraumatic, hearing grossly normal bilaterally and moist oral mucous membranes Head and Scalp: normocephalic Eyes PERRL, EOMs intact bilaterally and conjunctivae normal Neck no lymphadenopathy Resp Resp Narrative: diminished breath sounds bibasally, no wheezing, no crackles, on 4L of oxygen by nasal canula Cardio regular rate, regular rhythm, S1 normal heart sound, S2 normal heart sound and no murmurs GI normal to inspection, nondistended, normoactive bowel sounds, soft to palpation and non-tender Extremity normal to inspection and full ROM Extremity Narrative: LLE LE pitting pedal edema, RLE BKA Peripheral Pulses: Yes pulses 2+ throughout Skin no rashes or lesions noted Neuro oriented x3, CN's II-XII intact bilaterally and moves all extremities Sensorium / Orientation: awake and alert Psych affect normal Assessment & Plan Assessment/Plan (1) CHF (congestive heart failure): (2) End stage chronic kidney disease: (3) Hypoxia: PLAN: #Acute on chronic exacerbation of heart failure with unknown EF * feels better today after he had dialysis * still makes urine so on IV lasix 40mg bid * had removal of 4.4L of fluid yesterday * monitor intake and output. * Fluid restriction to 1500cc daily * * * #ESRD: * on HD T/T/S. doesnt think enough fluid is being taken off. * had dialysis yesterday, for dialysis today as well. * #Hypertension: * on amlodipine, carvedilol and hydralazine as well as clonidine and torsemide. * torsemide held as patient is being given lasix * #Right BKA: says this was as a result of post surgical infection of right foot. #Type 2 diabetes mellitus * on lantus 18 units daily. ISS. Accuchecks ACHS * #Hyperlipidemia: on statin. DVT prophylaxis: lovenox, renally dosed Code status: full code * Charges/Coding Visit Charges Inpatient E&M: 25933 Subs Hosp L3
--- NOTE | 2020-11-06 13:17 | DIALYSIS ---
Hemodialysis complete via left upper arm AV graft with 4 liters fluid removed. Stasis obtained after #15 gauge needles removed. Pt tolerated treatment without difficulty.
--- NOTE | 2020-11-06 14:30 | RAD_ITS ---
STUDY: X-RAY CHEST REASON FOR EXAM: Male, 60 years old. Post thoracentesis TECHNIQUE: AP inspiration and expiration views following thoracocentesis. COMPARISON: Comparison is made with prior study 11/05/2020. FINDINGS: The patient is status post left thoracentesis. Minimal residual pleural parenchymal changes seen at the left lung base. Stable small right pleural effusion. No evidence of pneumothorax. RAD/Chest Insp/Exp 2 View IMPRESSION: Status post left thoracentesis. There is no evidence of pneumothorax. Electronically Signed: Que Grey MD at 14:44 EDT , Service support ,
[2020-11-06] MEDS: Lidocaine 2% (5ml sdv) 5 ML VIAL.MPF 1 ML INFILT (14:46)
[2020-11-06 15:29] LABS: Body Fluid Mononuclear WBC # 0.058 10^3/uL; Body Fluid Mononuclear WBC % 47.2 %; Body Fluid Polynuclear WBC # 0.065 10^3/uL; Body Fluid Polynuclear WBC % 52.8 %; Body Fluid Total Cells Counted 0.126 10^3/ul; White Blood Count/Body Fluid 0.123 10^3/uL
[2020-11-06 16:00] LABS: LDH,Body Fluid 59 Units/l (Not Establ.); Protein, Body Fluid 2.9 g/dL (Not Establ.)
[2020-11-06 17:15] LABS: Bedside Glucose 268 mg/dL (70-110)
[2020-11-06 17:21] LABS: Lymphocytes 34 %; Monocytes 11 %; Neutrophil (Segs) 50 %; Other Cell Type/BF 5 %
[2020-11-06 17:24] LABS: Appearance/Body Fluid CLEAR; Auto B Fluid Analyzer BKGD Ct COUNTS W/IN LIMITS (W/IN LIMITS); Body Fluid QC Type(s) BF1Q; Color/Body Fluid LT YEL; Red Cell Count/Body Fluid 11 /mm3; Source- Body Fluid THORACENTESIS
--- NOTE | 2020-11-06 17:30 | RAD_ITS ---
STUDY: X-RAY CHEST REASON FOR EXAM: Male, 60 years old. post thoracentesis changes in lung sounds TECHNIQUE: Single AP portable view of the chest. COMPARISON: Same day, 2:27 PM FINDINGS: No pneumothorax is seen. Significantly improved left pleural effusion which is now only mild. No other changes since 3 hours earlier. Electronically Signed: Henry Dukes MD at 18:58 EDT , Service support , RAD/Chest 1 View (Portable)
[2020-11-06] MEDS: Atorvastatin Calcium 80 MG Tablet PO (21:27)
[2020-11-06] MEDS: traZODone 50 MG Tablet PO (21:27)
[2020-11-06] MEDS: Sodium Chloride 0.65% 1 SPRAY SPRAY.BTL 2 SPRAY NASAL (21:27)
[2020-11-06] MEDS: MELATONIN 10 MG TABLET 5 MG PO (21:27)
[2020-11-06 21:51] LABS: Bedside Glucose 229 mg/dL (70-110)
[2020-11-07] VITALS (13 sets, daily range): BP systolic 146–159; BP diastolic 52–69; PULSE 62–67; RESP 16–18; TEMP 36.2–36.7; O2SAT 70–100
[2020-11-07] MEDS: oxyCODONE 5 MG Tablet 10 MG PO ×3 (00:14→21:44)
[2020-11-07] MEDS: LORazepam 0.5 MG Tablet PO ×4 (00:14→22:34)
[2020-11-07] MEDS: Acetaminophen 325 MG Tablet PO (00:15)
[2020-11-07] MEDS: hydrALAZINE 50 MG Tablet 100 MG PO ×3 (06:45→21:45)
[2020-11-07] MEDS: cloNIDine HCl 0.1 MG Tablet 0.3 MG PO ×3 (06:45→21:50)
[2020-11-07] MEDS: Insulin Lispro 100 UNIT/ML INSULN.PEN SC ×4 (06:46→21:45)
[2020-11-07 06:56] LABS: Bedside Glucose 218 mg/dL (70-110)
[2020-11-07 07:29] LABS: Absolute Lymphocyte Count 0.55 X10^3/uL (0.83-4.51); Absolute Neutrophil Count 6.2 X10^3/uL (2.0-7.7); Basophil# 0.02 X10^3/uL; Basophil% 0.3 % (0-1); Eosinophil# 0.19 X10^3/uL; Eosinophils% 2.5 % (0-5); Hematocrit 25.7 % (40-54); Hemoglobin 7.7 g/dL (13.0-16.5); Lymphocyte # 0.55 X10^3/ul (0.83-4.51); Lymphocyte % 7.3 % (19-41); Mean Corpuscular Hgb 26.9 pg (27.0-32.0); Mean Corpuscular Volume 89.9 fL (80-94); Mean Platelet Vol. 9.2 fl (6.2-12.0); Monocyte# 0.61 X10^3/uL; NRBC Flagged by Analyzer 0 % (0-5); Neutrophil # 6.17 X10^3/uL (2.7-7.7); Neutrophil % 81.4 % (47-70); POSITIVE DIFFERENTIAL YES; Platelet Count 256 K/mm3 (150-450); RBC Distribution Width CV 16.3 % (11.6-14.6); RBC Distribution Width SD 53.1 fl (35.1-43.9); Red Blood Count 2.86 M/mm3 (4.6-6.2); White Blood Count 7.6 K/mm3 (4.4-11.0)
[2020-11-07 07:36] LABS: Differential Indicated SCAN CRITERIA MET
[2020-11-07 07:41] LABS: Anion Gap 6 (5-15); BUN 30 mg/dL (7-18); BUN/Creat Ratio 5.9 RATIO (10-20); Calcium,Total 8.2 mg/dL (8.5-10.1); Chloride 98 mmol/L (98-107); Creatinine, Serum 5.07 mg/dL (0.70-1.30); EST Glomerular Filtration Rate 13 mL/min (>60); Est Glom Filt Rate - Afr Amer 15 mL/min (>60); Estimated Creatinine Clearance 17.43 ml/min; Glucose 219 mg/dL (74-106); Potassium 4.1 mmol/L (3.5-5.1); Sodium Level 132 mmol/L (136-145)
[2020-11-07] MEDS: Vitamin B Comp W-C Capsule 1 CAP PO (10:04)
[2020-11-07] MEDS: amLODIPine 10 MG Tablet PO (10:04)
[2020-11-07] MEDS: Calcium Acetate 667 MG Capsule PO ×2 (10:05→16:28)
[2020-11-07] MEDS: Folic Acid 1 MG Tablet PO (10:05)
[2020-11-07] MEDS: Aspirin 81 MG TAB.CHEW PO (10:05)
[2020-11-07] MEDS: Carvedilol 25 MG Tablet PO ×2 (10:05→16:28)
[2020-11-07] MEDS: Isosorbide Mononitrate 30 MG Tablet PO (10:06)
[2020-11-07] MEDS: Polyethylene Glycol 3350 17 GM PACKET PO (10:07)
[2020-11-07] MEDS: Pantoprazole Sodium 20 MG Tablet PO ×2 (10:07→21:45)
[2020-11-07] MEDS: Cholecalciferol (VIT D3) 25 MCG TABLET (1,000 UNITS) PO (10:07)
[2020-11-07] MEDS: Furosemide 40 MG/4 ML Vial IV (10:07)
--- NOTE | 2020-11-07 10:44 | PN.RENAL_ITS ---
Subjective Subjective Patient is less shortness of breath. Edema is better Had left-sided thoracentesis yesterday with 2 L removal No nausea no vomiting Objective Data Objective Data Vital Signs: Vital Signs Temp Pulse Resp BP Pulse Ox 97.7 F L 67 18 159/69 H 95 11/07/20 09:21 11/07/20 09:21 11/07/20 09:21 11/07/20 09:21 11/07/20 09:21 Oxygen Flow Rate (L/min) [3] 4 Oxygen Flow Rate (L/min) [2] 4 Oxygen Flow Rate (L/min) [1 ( 4 Initial Baseline)] Oxygen Flow Rate (L/min) [ 2 AMBULATING with Oxygen #1] Oxygen Flow Rate (L/min) [At 2 REST with Oxygen] Oxygen Flow Rate (L/min) [At 0 REST on Room Air] Oxygen Flow Rate (L/min) 2 Oxygen Delivery Method [4] Room Air Oxygen Delivery Method [3] Nasal Cannula Oxygen Delivery Method [2] Nasal Cannula Oxygen Delivery Method [1 ( Nasal Cannula Initial Baseline)] Oxygen Delivery Method Nasal Cannula Weight: 86.3 kg Body Mass Index (BMI) 28.4 Intake & Output: Intake and Output for Last 24 Hours 11/05/20 11/06/20 11/07/20 23:59 23:59 23:59 Intake Total 240 / 240 480 / 720 360 / 360 Output Total 250 / 250 8700 / 8700 Balance -10 / -10 -8220 / -7980 360 / 360 Lab / Micro Data Result Diagrams: 11/07/20 06:54 11/07/20 06:54 Labs: Laboratory Results - last 24 hr 11/06/20 08:25: POC Glucose 227 H 11/06/20 11:11: POC Glucose 224 H 11/06/20 14:25: Fluid Glucose 214 H, Fluid Total Protein 2.9, Fluid LDH 59 11/06/20 14:25: Fluid Source THORACENTESIS, Fluid Color LT YEL, Fluid Appearance CLEAR, Fluid WBC 0.123, Fluid RBC 11, Fluid Tot Cell Count 0.126, Fld Polynuclear WBCs # 0.065, Fld Polynuclear WBCs % 52.8, Fluid Mononuclear WBCs 0.058, Fld Mononuclear WBCs % 47.2, Fluid Neutrophils 50, Fluid Lymphocytes 34, Fluid Monocytes 11, Fluid Other Cells 5, Fl Pathologist Comment May follow, Fluid Comment 2 SEE COMMENT 11/06/20 16:32: POC Glucose 268 H 11/06/20 21:26: POC Glucose 229 H 11/07/20 06:44: POC Glucose 218 H 11/07/20 06:54: WBC 7.6, RBC 2.86 L, Hgb 7.7 L, Hct 25.7 L, MCV 89.9, MCH 26.9 L , MCHC 30.0 L, RDW Std Deviation 53.1 H, RDW Coeff of Kandis 16.3 H, Plt Count 256, MPV 9.2, Immature Gran % (Auto) 0.500, Neut % (Auto) 81.4 H, Lymph % (Auto) 7.3 L, [place] % (Auto) 8.0, Eos % (Auto) 2.5, Baso % (Auto) 0.3, Absolute Neuts (auto) 6.2, Absolute Lymphs (auto) 0.55 L, Nucleated RBC % 0 11/07/20 06:54: Sodium 132 L, Potassium 4.1, Chloride 98, Carbon Dioxide 28.0, Anion Gap 6, BUN 30 H, Creatinine 5.07 H, Estim Creat Clear Calc 17.43, Est GFR (MDRD) Af Amer 15 L, Est GFR (MDRD) Non-Af 13 L, BUN/Creatinine Ratio 5.9 L, Glucose 219 H, Calcium 8.2 L Micro: Microbiology 11/05/20 10:30 Interface Orders SARS-CoV-2 Antigen (Rapid) - Final Radiography Diagnostic Testing: Radiology Impression Thoracentesis Ultrasound 11/06/20 09:48 IMPRESSION: Ultrasound-guided left thoracentesis. Electronically Signed: Que Grey MD at 14:46 EDT , Service support , Chest X-Ray 11/06/20 14:30 IMPRESSION: Status post left thoracentesis. There is no evidence of pneumothorax. Electronically Signed: Que Grey MD at 14:44 EDT , Service support , Chest X-Ray 11/06/20 17:30 Rhythm Strip Rhythm Strip: Sinus Rhythm Rate: 64 Ectopy: None Physical Exam Narrative Patient is awake alert oriented. Neck no JVD. Mouth moist mucosa. Head atraumatic normocephalic. Eye. Normal conjunctiva. Heart S1-S2 RRR. Chest lungs clear to auscultation. Abdomen: Soft positive bowel sounds. No tenderness Neurology: Awake alert oriented x3 no focal Extremity: +1 edema of left lower extremity Assessment & Plan Assessment/Plan (1) End stage chronic kidney disease: (2) Anemia: (3) CHF (congestive heart failure): (4) Hypoxia: PLAN: Patient usually dialyzes on Monday and Monday. Patient had 2 sessions in the last 2 days with 8 L fluid removal. Edema has improved. We will arrange for hemodialysis in today as per his regular schedule Hemodialysis access is left upper extremity fistula. Patient received 1 dose of Epogen November 06. To monitor hemoglobin Patient has bilateral pleural effusions with atelectasis left side more than the right side. Status post left-sided paracentesis On oxygen to keep oxygen saturation more than 92% Rest of the treatment as per the primary service. We will continue to follow Gurvinder Vinson MD
[2020-11-07 11:10] LABS: Differential Comment SCANNED
--- NOTE | 2020-11-07 11:14 | PN.HOSP_ITS ---
Documented by User: Lacho HEALY 11/07/20 11:26 Subjective Subjective Patient is a 60-year-old male comfortably resting in a chair, alert and orient x3. Denies chest pain, shortness of breath, palpitations, hemoptysis, sputum production, fever, chills, N/V/D. Objective Data Objective Data Vital Signs: Vital Signs Temp Pulse Resp BP Pulse Ox 97.7 F L 67 18 159/69 H 95 11/07/20 09:21 11/07/20 09:21 11/07/20 09:21 11/07/20 09:21 11/07/20 09:21 Oxygen Flow Rate (L/min) [3] 4 Oxygen Flow Rate (L/min) [2] 4 Oxygen Flow Rate (L/min) [1 ( 4 Initial Baseline)] Oxygen Flow Rate (L/min) [ 2 AMBULATING with Oxygen #1] Oxygen Flow Rate (L/min) [At 2 REST with Oxygen] Oxygen Flow Rate (L/min) [At 0 REST on Room Air] Oxygen Flow Rate (L/min) 2 Oxygen Delivery Method [4] Room Air Oxygen Delivery Method [3] Nasal Cannula Oxygen Delivery Method [2] Nasal Cannula Oxygen Delivery Method [1 ( Nasal Cannula Initial Baseline)] Oxygen Delivery Method Nasal Cannula Weight: 190 lb 4.143 oz Body Mass Index (BMI) 28.4 Intake & Output: Intake and Output for Last 24 Hours 11/05/20 11/06/20 11/07/20 23:59 23:59 23:59 Intake Total 240 / 240 480 / 720 360 / 360 Output Total 250 / 250 8700 / 8700 Balance -10 / -10 -8220 / -7980 360 / 360 Lab / Micro Data Result Diagrams: 11/07/20 06:54 11/07/20 06:54 Labs: Laboratory Results - last 24 hr 11/06/20 11:11: POC Glucose 224 H 11/06/20 14:25: Fluid Glucose 214 H, Fluid Total Protein 2.9, Fluid LDH 59 11/06/20 14:25: Fluid Source THORACENTESIS, Fluid Color LT YEL, Fluid Appearance CLEAR, Fluid WBC 0.123, Fluid RBC 11, Fluid Tot Cell Count 0.126, Fld Polynuclear WBCs # 0.065, Fld Polynuclear WBCs % 52.8, Fluid Mononuclear WBCs 0.058, Fld Mononuclear WBCs % 47.2, Fluid Neutrophils 50, Fluid Lymphocytes 34, Fluid Monocytes 11, Fluid Other Cells 5, Fl Pathologist Comment May follow, Fluid Comment 2 SEE COMMENT 11/06/20 16:32: POC Glucose 268 H 11/06/20 21:26: POC Glucose 229 H 11/07/20 06:44: POC Glucose 218 H 11/07/20 06:54: WBC 7.6, RBC 2.86 L, Hgb 7.7 L, Hct 25.7 L, MCV 89.9, MCH 26.9 L , MCHC 30.0 L, RDW Std Deviation 53.1 H, RDW Coeff of Kandis 16.3 H, Plt Count 256, MPV 9.2, Immature Gran % (Auto) 0.500, Neut % (Auto) 81.4 H, Lymph % (Auto) 7.3 L, [place] % (Auto) 8.0, Eos % (Auto) 2.5, Baso % (Auto) 0.3, Absolute Neuts (auto) 6.2, Absolute Lymphs (auto) 0.55 L, Nucleated RBC % 0, Differential Comment SCANNED 11/07/20 06:54: Sodium 132 L, Potassium 4.1, Chloride 98, Carbon Dioxide 28.0, Anion Gap 6, BUN 30 H, Creatinine 5.07 H, Estim Creat Clear Calc 17.43, Est GFR (MDRD) Af Amer 15 L, Est GFR (MDRD) Non-Af 13 L, BUN/Creatinine Ratio 5.9 L, Glucose 219 H, Calcium 8.2 L Micro: Microbiology 11/05/20 10:30 Interface Orders SARS-CoV-2 Antigen (Rapid) - Final Radiography Diagnostic Testing: Radiology Impression Thoracentesis Ultrasound 11/06/20 09:48 IMPRESSION: Ultrasound-guided left thoracentesis. Electronically Signed: Que Grey MD at 14:46 EDT , Service support , Chest X-Ray 11/06/20 14:30 IMPRESSION: Status post left thoracentesis. There is no evidence of pneumothorax. Electronically Signed: Que Grey MD at 14:44 EDT , Service support , Chest X-Ray 11/06/20 17:30 Rhythm Strip Rhythm Strip: Sinus Rhythm Rate: 64 Ectopy: None Physical Exam Const alert, oriented x3 and no apparent distress HEENT head/scalp atraumatic, moist oral mucous membranes and oropharynx normal Head and Scalp: normocephalic Eyes PERRL, EOMs intact bilaterally and conjunctivae normal Neck no lymphadenopathy, supple and no JVD Resp normal respiratory effort and no use of accessory muscles Auscultation: diminished lung sounds bilateral Cardio regular rate, regular rhythm, no murmurs and no JVD GI normal to inspection, nondistended, normoactive bowel sounds, soft to palpation and non-tender Extremity Extremity Narrative: RLEfrain BKR[place]ío General Extremity: edema left (pitting edema) lower extremity Skin no rashes or lesions noted, no wounds and skin turgor normal Neuro CN's II-XII intact bilaterally Psych affect normal Assessment & Plan Assessment/Plan (1) CHF (congestive heart failure): (2) Hypoxia: (3) End stage chronic kidney disease: PLAN: Day 2: See subjective. Discharge planning: Awaiting PRE-CERT back to [facility]. 1) acute on chronic CHF exacerbation Reports improvement in shortness of breath from admission. No echocardiogram on file. Will need to follow-up with outpatient cardiothoracic surgeon for potenti al pleurodesis. Paracentesis canceled. 2 sessions of dialysis have remove 8 L of fluid, with overall improvement in patient's edema, will receive another round of dialysis today. Plan; dialysis as above, continue carvedilol, continue IV Lasix 40 mg twice daily, 2) ESRD HD on , , schedule. Nephrology following, will have additional dialysis today. 3) HTN Stable, continue IV Lasix, continue amlodipine, continue Coreg, continue clonidine, continue hydralazine and isosorbide. 4) DM2 Accu-Cheks with sliding scale insulin, continue Lantus. 5) hyperlipidemia Continue statin. DVT prophylaxis - Lovenox Patient seen by Lacho Lopez PA-C, under the supervision of Dr. Moore. Documented by User: Dr. Anabelle Moore DO 11/07/20 15:19 Subjective Subjective This patient was seen in conjunction with NIRAJ Short. The following is representation my independent history and physical examination. Please see below for addendum to the above. Patient states that he continues to have intermittent shortness of breath. He states he had what sounds to be like a VATS pleurodesis on the left side ap proximately 2 years ago secondary to recurrent pleural effusions. He is questioning whether or not that should be done at this time. He had a thoracentesis on the left side yesterday with removal of 2 L of fluid. I discussed with him that with increasing his dialysis we may be able to pull enough fluid off the he does not need to have a recurrent VATS pleurodesis done but that will be an outpatient decision made on follow-up. He is agreeable to return to [facility] but would like to persist with physical therapy upon his arrival. Objective Data Lab / Micro Data Result Diagrams: 11/07/20 06:54 11/07/20 06:54 Physical Exam Const alert, oriented x3 and no apparent distress Constitutional Narrative: Upper middle-aged -[place] male sitting up in a wheelchair, appears older than stated age, appears comfortable, nontoxic, nursing at bedside Exam Limitations: no limitations Resp normal respiratory effort, no retractions, no use of accessory muscles and clear to auscultation bilaterally Resp Narrative: Left base has good breath sounds Auscultation: Negative for crackles, rales, rhonchi or wheezes Cardio regular rate, regular rhythm, S1 normal heart sound, S2 normal heart sound, no murmurs, no rub, no gallops, no clicks and no JVD GI normal to inspection, nondistended, normoactive bowel sounds, soft to palpation, non-tender and non-distended Extremity Extremity Narrative: Right lower extremity BKA, trace left lower extremity edema, no cyanosis or clubbing, pedal pulses 1+, radial pulse 2+ Skin no rashes or lesions noted, no wounds, skin turgor normal, no jaundice, no petechiae and no mottling Neuro oriented x3, CN's II-XII intact bilaterally, moves all extremities and no focal motor deficits Sensorium / Orientation: awake and alert Speech: speech normal Psych Psych Narrative: Seems mildly anxious but pleasant Assessment & Plan Assessment/Plan (1) End stage chronic kidney disease: (2) Acute and chronic respiratory failure with hypoxia: (3) Pleural effusion: PLAN: Assessment: Acute hypoxic respiratory failure Acute on chronic exacerbation of CHF -EF unknown Large left pleural effusion-transudative End-stage renal disease-HD dependent Hypertension DM-2 Hyperlipidemia Right BKA Chronic anemia GERD Debility Plan: -Discussed case with nephrology -Indicated that reevaluation of dry weight with increased dialysis to 4 times weekly may be prudent at this time -If this does not help with his recurrent pleural effusions would recommend repeat evaluation by cardiothoracic surgery for VATS pleurodesis on the left -She does make urine--> continued Lasix 40 mg twice daily -Has had 8 L of fluid removed with dialysis in the last 48 hours -Went for dialysis again today -To new fluid restriction/salt restriction -Blood pressure remains elevated but patient is on pretty significant therapy -Continue to monitor and if remains elevated despite further fluid removal consider minoxidil -Plan for discharge to [facility] likely on Monday Charges/Coding Visit Charges Inpatient E&M: 86072 Subs Hosp L2
--- NOTE | 2020-11-07 11:18 | NURSING ---
Patient approached nurse with 2 pills that he found in his chair. Medications identified via clinical pharmacology pill identifier as one 0.5 lorazepam and one 5mg of Oxycodone. Medications due to the unknown time they were given, were both wasted in Rx destroyer with Francoise Carreon RN as witness.
[2020-11-07 11:46] LABS: Bedside Glucose 265 mg/dL (70-110)
--- NOTE | 2020-11-07 15:59 | CASEMGMT ---
PAMELA Note Referral Source: DALIA CM Referral Reason: From [facility] PAMELA met with patient. Patient said that he is from [facility]. Patient said that his plan is for him to return to [facility] and get my stuff and then he is going to a place in [place]. Patient said that that after he goes to the place in [place] he wants to get his own place as it's so depressing with people dying around you. Patient asked this real estate underwriter what this social group worker can help him with and this real estate underwriter indicated that hospital social workers work with placement and thus, this is why this real estate underwriter is speaking to him. PAMELA spoke to Katy at [facility]. SHe siad that she needed to speak to her boss regarding if patient is going to return to [facility]. Pamela received voice mail from Katy stating that she talked to her boss and they will have to take patient back. Katy said that they are looking for a place in [place] for patient as patient did not like [facility]. PAMELA called aKty back to confirm her voice mail and advise that this real estate underwriter was not aware of discharge plans to day but planning for patient's discharge when he is ready for discharge. No further needs or issues at this time. Plan: [facility] at discharge Yamila LINDSAY
[2020-11-07 16:51] LABS: Bedside Glucose 270 mg/dL (70-110)
--- NOTE | 2020-11-07 20:37 | DIALYSIS ---
Hemodialysis tx completed x 2 hours without complications. Pt requested to try to take 3.5liters off. Fluid removed 3,500ml. Vitals stable throughout tx. Verbal report given to DALIA Beckford post tx
[2020-11-07] MEDS: MELATONIN 10 MG TABLET 5 MG PO (21:45)
[2020-11-07] MEDS: Doxazosin 4 MG Tablet PO (21:45)
[2020-11-07] MEDS: Atorvastatin Calcium 80 MG Tablet PO (21:45)
[2020-11-07] MEDS: traZODone 50 MG Tablet PO (21:45)
[2020-11-07 21:55] LABS: Bedside Glucose 253 mg/dL (70-110)
[2020-11-07] MEDS: 0.9% Saline Lock 10 ML Syringe IV (22:33)
[2020-11-07] MEDS: Ondansetron 4 MG/2 ML Vial IV (22:36)
[2020-11-08] VITALS (21 sets, daily range): BP systolic 137–168; BP diastolic 48–75; PULSE 63–71; RESP 16–20; TEMP 36.6–37; O2SAT 93–100
[2020-11-08] MEDS: Sodium Chloride 0.65% 1 SPRAY SPRAY.BTL 2 SPRAY NASAL (03:13)
[2020-11-08] MEDS: LORazepam 0.5 MG Tablet PO ×3 (04:55→17:53)
[2020-11-08] MEDS: oxyCODONE 5 MG Tablet 10 MG PO ×3 (06:00→23:03)
[2020-11-08] MEDS: hydrALAZINE 50 MG Tablet 100 MG PO ×3 (06:03→21:59)
[2020-11-08] MEDS: cloNIDine HCl 0.1 MG Tablet 0.3 MG PO ×3 (06:03→21:58)
[2020-11-08 06:56] LABS: Bedside Glucose 160 mg/dL (70-110)
[2020-11-08 07:01] LABS: Absolute Lymphocyte Count 0.52 X10^3/uL (0.83-4.51); Absolute Neutrophil Count 6.8 X10^3/uL (2.0-7.7); Basophil# 0.02 X10^3/uL; Basophil% 0.2 % (0-1); Eosinophil# 0.26 X10^3/uL; Eosinophils% 3.1 % (0-5); Hematocrit 26.1 % (40-54); Hemoglobin 8.1 g/dL (13.0-16.5); Lymphocyte # 0.52 X10^3/ul (0.83-4.51); Lymphocyte % 6.2 % (19-41); Mean Corpuscular Hgb 27.5 pg (27.0-32.0); Mean Corpuscular Volume 88.5 fL (80-94); Mean Platelet Vol. 9.3 fl (6.2-12.0); Monocyte# 0.78 X10^3/uL; Monocyte% 9.3 % (0-10); NRBC Flagged by Analyzer 0 % (0-5); Neutrophil # 6.81 X10^3/uL (2.7-7.7); Neutrophil % 80.8 % (47-70); POSITIVE DIFFERENTIAL YES; Platelet Count 267 K/mm3 (150-450); RBC Distribution Width SD 52.3 fl (35.1-43.9); Red Blood Count 2.95 M/mm3 (4.6-6.2); White Blood Count 8.4 K/mm3 (4.4-11.0)
[2020-11-08 07:21] LABS: Anion Gap 7 (5-15); BUN 32 mg/dL (7-18); BUN/Creat Ratio 6.3 RATIO (10-20); Calcium,Total 8.3 mg/dL (8.5-10.1); Chloride 98 mmol/L (98-107); Creatinine, Serum 5.07 mg/dL (0.70-1.30); EST Glomerular Filtration Rate 13 mL/min (>60); Est Glom Filt Rate - Afr Amer 15 mL/min (>60); Estimated Creatinine Clearance 17.43 ml/min; Glucose 181 mg/dL (74-106); Potassium 4.3 mmol/L (3.5-5.1); Sodium Level 132 mmol/L (136-145)
[2020-11-08] MEDS: Vitamin B Comp W-C Capsule 1 CAP PO (07:50)
[2020-11-08] MEDS: Cholecalciferol (VIT D3) 25 MCG TABLET (1,000 UNITS) PO (07:50)
[2020-11-08] MEDS: Calcium Acetate 667 MG Capsule PO ×2 (07:50→17:50)
[2020-11-08] MEDS: amLODIPine 10 MG Tablet PO (07:51)
[2020-11-08] MEDS: Furosemide 40 MG/4 ML Vial IV (07:51)
[2020-11-08] MEDS: Aspirin 81 MG TAB.CHEW PO (07:51)
[2020-11-08] MEDS: Folic Acid 1 MG Tablet PO (07:51)
[2020-11-08] MEDS: Carvedilol 25 MG Tablet PO ×2 (07:51→17:50)
[2020-11-08] MEDS: Pantoprazole Sodium 20 MG Tablet PO ×2 (07:51→21:59)
[2020-11-08] MEDS: Polyethylene Glycol 3350 17 GM PACKET PO (07:52)
[2020-11-08] MEDS: Isosorbide Mononitrate 30 MG Tablet PO ×2 (07:53→21:58)
[2020-11-08] MEDS: Minoxidil 2.5 MG Tablet PO (08:04)
[2020-11-08 08:09] LABS: Differential Indicated SCAN CRITERIA MET
[2020-11-08 08:43] LABS: Differential Comment SCANNED
--- NOTE | 2020-11-08 10:21 | PCM.PN.HOSP ---
Documented by User: Lacho HEALY 11/08/20 10:38 Subjective Subjective Patient is a 60-year-old male comfortably resting in a chair, alert and orient x3. Patient reports some difficulty with breathing, despite his oxygen saturations being normal. Denies hemoptysis, sputum production, fever, chills, N/V/D. Objective Data Objective Data Vital Signs: Vital Signs Temp Pulse Resp BP Pulse Ox 97.9 F 64 16 159/65 H 94 11/08/20 07:35 11/08/20 07:35 11/08/20 07:35 11/08/20 07:35 11/08/20 08:00 Oxygen Flow Rate (L/min) [3] 4 Oxygen Flow Rate (L/min) [2] 4 Oxygen Flow Rate (L/min) [1 ( 4 Initial Baseline)] Oxygen Flow Rate (L/min) [ 2 AMBULATING with Oxygen #1] Oxygen Flow Rate (L/min) [At 2 REST with Oxygen] Oxygen Flow Rate (L/min) [At 0 REST on Room Air] Oxygen Flow Rate (L/min) 4 Oxygen Delivery Method [4] Room Air Oxygen Delivery Method [3] Nasal Cannula Oxygen Delivery Method [2] Nasal Cannula Oxygen Delivery Method [1 ( Nasal Cannula Initial Baseline)] Oxygen Delivery Method Room Air Weight: 189 lb 13.088 oz Body Mass Index (BMI) 28.4 Intake & Output: Intake and Output for Last 24 Hours 11/06/20 11/07/20 11/08/20 23:59 23:59 23:59 Intake Total 480 / 720 1110 / 1110 Output Total 8700 / 8700 3850 / 3850 200 / 200 Balance -8220 / -7980 -2740 / -2740 -200 / -200 Lab / Micro Data Result Diagrams: 11/08/20 06:17 11/08/20 06:17 Labs: Laboratory Results - last 24 hr 11/07/20 06:54: Differential Comment SCANNED 11/07/20 11:41: POC Glucose 265 H 11/07/20 16:28: POC Glucose 270 H 11/07/20 21:40: POC Glucose 253 H 11/08/20 06:17: WBC 8.4, RBC 2.95 L, Hgb 8.1 L, Hct 26.1 L, MCV 88.5, MCH 27.5, MCHC 31.0 L, RDW Std Deviation 52.3 H, RDW Coeff of Kandis 16.0 H, Plt Count 267, MPV 9.3, Immature Gran % (Auto) 0.400, Neut % (Auto) 80.8 H, Lymph % (Auto) 6.2 L, [place] % (Auto) 9.3, Eos % (Auto) 3.1, Baso % (Auto) 0.2, Absolute Neuts (auto) 6.8, Absolute Lymphs (auto) 0.52 L, Nucleated RBC % 0, Differential Comment SCANNED 11/08/20 06:17: Sodium 132 L, Potassium 4.3, Chloride 98, Carbon Dioxide 27.0, Anion Gap 7, BUN 32 H, Creatinine 5.07 H, Estim Creat Clear Calc 17.43, Est GFR (MDRD) Af Amer 15 L, Est GFR (MDRD) Non-Af 13 L, BUN/Creatinine Ratio 6.3 L, Glucose 181 H, Calcium 8.3 L 11/08/20 06:42: POC Glucose 160 H Micro: Microbiology 11/05/20 10:30 Interface Orders SARS-CoV-2 Antigen (Rapid) - Final Rhythm Strip Rhythm Strip: Sinus Rhythm Rate: 64 Ectopy: None Physical Exam Const alert, oriented x3 and no apparent distress HEENT head/scalp atraumatic and moist oral mucous membranes Head and Scalp: normocephalic Eyes PERRL, EOMs intact bilaterally and conjunctivae normal Neck no lymphadenopathy, supple and no JVD Resp Effort and Inspection: tachypneic, respiratory distress and labored Auscultation: diminished lung sounds Cardio regular rate, regular rhythm, no murmurs and no JVD GI normal to inspection, nondistended, normoactive bowel sounds, soft to palpation and non-tender Extremity normal to inspection, full ROM and no clubbing, cyanosis or edema Skin no rashes or lesions noted, no wounds, skin turgor normal and no jaundice Neuro CN's II-XII intact bilaterally Psych affect normal Assessment & Plan Assessment/Plan (1) Acute and chronic respiratory failure with hypoxia: (2) Hypoxia: (3) End stage chronic kidney disease: PLAN: Day 3: See subjective. Discharge planning: Awaiting PRE-CERT back to [facility]. 1) acute on chronic CHF exacerbation Patient complains or shortness of breath, despite having normal oxygen saturations at 99%. O2 via NC increased to 4 liters. No echocardiogram on file. Will need to follow-up with outpatient cardiothoracic surgeon for potential pleurodesis. Paracentesis canceled. 2 sessions of dialysis have remove 8 L of fluid, with overall improvement in patient's edema, will receive another round of dialysis today. Plan; dialysis as above, continue carvedilol, continue IV Lasix 40 mg twice daily, continue o2 as above, scheduled duonebs ordered. 2) ESRD HD on , , schedule. Nephrology following. 3) HTN Elevated currently 159/65. <inoxidil initiated, continue IV Lasix, continue amlodipine, continue Coreg, continue clonidine, continue hydralazine and isosorbide. 4) DM2 Accu-Cheks with sliding scale insulin, continue Lantus. 5) hyperlipidemia Continue statin. DVT prophylaxis - Lovenox Patient seen by Lacho Lopez PA-C, under the supervision of Dr. Moore. Documented by User: Dr. Anabelle Moore DO 11/08/20 12:59 Subjective Subjective This patient was seen in conjunction with NIRAJ Short. The following represents my independent history and physical exam. Please see below for any addendum to the above. Patient states that he is feeling okay. He states he still has intermittent periods where he feels short of breath. Oxygen assessment during these periods indicate no hypoxemia at this time. He still is very concerned and perseverates on his pleural effusions. I have tried to reassure him and at this time he has clear lung sounds. We have discussed with him also the intent on more aggressive dialysis with reestablishing a dry weight and 4 times a week treatments. He currently is denying chest pain or shortness of breath and is sitting up in a wheelchair watching football game and eating breakfast. Objective Data Lab / Micro Data Result Diagrams: 11/08/20 06:17 11/08/20 06:17 Physical Exam Const alert, oriented x3 and no apparent distress Constitutional Narrative: Middle-aged -[place] male sitting up in a chair eating breakfast and watching football game on the television, appears comfortable, currently on 3 L nasal cannula Exam Limitations: no limitations HEENT head/scalp atraumatic, moist oral mucous membranes and oropharynx normal Head and Scalp: normocephalic Mouth: oral and palatal mucosa normal Resp normal respiratory effort, no retractions, no use of accessory muscles and clear to auscultation bilaterally Resp Narrative: Patient subjectively complains of shortness of breath but appears comfortable, is not tachypneic, and shows no outward signs of respiratory distress Auscultation: Negative for crackles, rales, rhonchi or wheezes Cardio regular rate, regular rhythm, S1 normal heart sound, S2 normal heart sound, no rub, no gallops, no clicks and no JVD GI normal to inspection, nondistended, normoactive bowel sounds, soft to palpation, non-tender and non-distended Extremity no clubbing, cyanosis or edema Extremity Narrative: Right lower extremity BKA Skin no rashes or lesions noted, no wounds, skin turgor normal, no jaundice, no petechiae and no mottling Neuro oriented x3, CN's II-XII intact bilaterally, moves all extremities and no focal motor deficits Sensorium / Orientation: awake, alert, oriented to person, oriented to place and oriented to time Speech: speech normal Psych affect normal Mood & Affect: anxious Assessment & Plan Assessment/Plan (1) Acute and chronic respiratory failure with hypoxia: (2) End stage chronic kidney disease: (3) Pleural effusion: PLAN: Assessment: Acute hypoxic respiratory failure Acute on chronic exacerbation of CHF -EF unknown Large left pleural effusion-transudative End-stage renal disease-HD dependent Hypertension DM-2 Hyperlipidemia Right BKA Chronic anemia GERD Debility Plan: -Discussed case with nephrology -Indicated that reevaluation of dry weight with increased dialysis to 4 times weekly may be prudent at this time -If this does not help with his recurrent pleural effusions would recommend repeat evaluation by cardiothoracic surgery for VATS pleurodesis on the left -She does make urine--> continued Lasix 80 mg twice daily but will switch to oral at this point -Patient's next planned dialysis session will be on [place] -Continue fluid restriction/salt restriction -Increase Imdur to twice daily and add minoxidil 2.5 mg -Repeat chest x-ray in a.m. to reevaluate status post thoracentesis--> lung gamble are clear at this time but patient is significantly concerned about reaccumulation -Check echocardiogram given persistent intermittent shortness of breath -Plan for discharge to [facility] likely on Monday
--- NOTE | 2020-11-08 11:16 | RAD_ITS ---
STUDY: X-RAY CHEST REASON FOR EXAM: Male, 60 years old. Thoracentesis TECHNIQUE: Single AP portable view of the chest. COMPARISON: 11/06/2020 FINDINGS: Status post anterior cervical discectomy and fusion lower cervical spine. Poor inspiration with some bibasilar atelectasis. There is no demonstrated pleural abnormality. There is moderate cardiac enlargement. Normal mediastinum and stacy. Normal visualized pulmonary arteries. Normal visualized aortic arch and descending thoracic aorta. Normal visualized thoracic spine. Normal visualized ribs, clavicles, and shoulders. There is no demonstrated abnormality of the visualized soft tissue structures of the upper abdomen. RAD/Chest 1 View (Portable) IMPRESSION: Poor inspiration with some bibasilar atelectasis. Electronically Signed: Juan Hanks MD at 13:24 EDT Tel , Service support ,
--- NOTE | 2020-11-08 11:20 | NURSING ---
pt reminded to call nurse when his lunch tray arrives so he can be given his insuliln
--- NOTE | 2020-11-08 11:29 | EKG12_ITS ---
Test Reason : CP Blood Pressure : / mmHG Vent. Rate : 068 BPM Atrial Rate : 068 BPM P-R Int : 192 ms QRS Dur : 086 ms QT Int : 416 ms P-R-T Axes : 032 022 096 degrees QTc Int : 442 ms Normal sinus rhythm Anteroseptal infarct , age undetermined Abnormal ECG When compared with ECG of 05-NOV-2020 09:45, MANUAL COMPARISON REQUIRED, DATA IS UNCONFIRMED Confirmed by BILLY HUGHES, STEVE ([id number]), desk editor PAIGE MORALES ([id number]) on 11/10/2020 8:02:07 AM Referred By: JIGAR Confirmed By:STEVE CERVANTES MD
--- NOTE | 2020-11-08 11:30 | NURSING ---
AIDE CALLED TO REPORT PT WS C/O SEVERE CP. NIRAJ VENCES WAS PRESENT WHEN CALL WAS RECEIVED. STAT EKG ORDERED. 1131, THIS NURSE AND AIDE ASSISTED PT BACK TO ROOM AND HE GOT SELF BACK INTO BED. CPS STAFF HERE TO OBTAIN EKG.
--- NOTE | 2020-11-08 11:43 | NURSING ---
ekg reviewed, michelle ardon, reviewed, comparted to previous. awaiting cxr yet, this nurse tried to reassure pt, he still insists on seeing michelle ardon, again.
[2020-11-08] MEDS: Nitroglycerin (INPATIENT USE) 0.4 MG TAB.SUBL SL ×2 (11:59→12:04)
--- NOTE | 2020-11-08 12:12 | NURSING ---
PT REPORTS A LITTLE RELIEF AFTER 2 NITRO SL. HE DOES NOT WANT THE 3RD, WHY CANT THEY JUST GIVE ME PAIN MEDICINE OR MORPHINE. REMINDED PT FOR THE 5TH TIME IN 30 MINUTES THAT THE PAIN MEDICINE IS NOT DUE UNTIL 1400
[2020-11-08 12:40] LABS: Bedside Glucose 293 mg/dL (70-110)
--- NOTE | 2020-11-08 12:52 | ECHOD_ITS ---
Version 2 Reason For Study: DYSPNEA Procedure This was a 2D Doppler, Color Flow transthoracic echocardiogram. Exam performed portable in patient room. Left Ventricle Normal LV size. Moderate concentric left ventricular hypertrophy. Left ventricular systolic function is normal. The estimated ejection fraction is 60 %. Stage 2 diastolic dysfunction. No regional wall motion abnormalities noted. Right Ventricle Normal RV size. Normal systolic function. Atria The left atrium is moderately enlarged. The right atrium is moderately enlarged. Mitral Valve Bileaflet diffuse mitral valve thickening. Mild (1+) eccentric mitral valve insufficiency. Great Vessels Normal aortic root. The pulmonary artery is normal size. Pericardium/Pleural No pericardial effusion. Small left pleural effusion. MMode/2D Measurements & Calculations LVIDd: 5.4 cm IVSd: 1.4 cm Ao root diam: 3.5 cm LVIDs: 3.9 cm LVPWd: 1.4 cm RVDd: 4.9 cm FS: 28.0 % LAV(MOD-bp): 94.1 ml SV(MOD-sp4): 77.6 ml LVAd ap4: 39.9 cm2 LAV(MOD-bp) Indexed: 45.2 ml/m2 LVLd ap4: 9.7 cm LAV(MOD-sp2): 99.0 ml EDV(MOD-sp4): 140.5 ml LAV(MOD-sp4): 93.7 ml EDV(sp4-el): 138.9 ml LVAs ap4: 24.0 cm2 LVLs ap4: 7.9 cm ESV(MOD-sp4): 62.9 ml ESV(sp4-el): 62.4 ml EF(MOD-sp4): 55.2 % EF(sp4-el): 55.1 % SV(sp4-el): 76.5 ml LA A4 area: 28.3 cm2 LA dimension(2D): 5.0 cm RA A4 area: 25.8 cm2 Time Measurements MV dec time: 0.18 sec Doppler Measurements & Calculations MV E max hector: 122.7 cm/sec Lat Peak E' Hector: 3.9 cm/sec Med Peak E' Hector: 5.9 cm/sec MV A max hector: 70.7 cm/sec E/E' lat: 31.2 E/E' med: 20.7 MV E/A: 1.7 Ao V2 max: 150.7 cm/sec LV V1 max: 122.8 cm/sec PA V2 max: 110.6 cm/sec Ao max P.1 mmHg LV V1 max P.0 mmHg ECHO/Echo Complete Interpretation Summary Normal LV size. Moderate concentric left ventricular hypertrophy. Left ventricular systolic function is normal. The estimated ejection fraction is 60 %. Stage 2 diastolic dysfunction. The left atrium is moderately enlarged. The right atrium is moderately enlarged. Small left pleural effusion. Ordering Physician: Anabelle Moore Referring Physician: KENNETH RASCON Performed By: Niharika Gomez RDCS, RVT
[2020-11-08] MEDS: Ipratropium/Albuterol Sulfate 3 ML AMPUL.NEB INHALATION (13:30)
[2020-11-08] MEDS: Acetaminophen 325 MG Tablet PO ×2 (14:49→23:03)
--- NOTE | 2020-11-08 15:11 | CT_ITS ---
STUDY: CT CHEST WITHOUT CONTRAST REASON FOR EXAM: Male, 60 years old. Shortness of breath and left-sided chest pain RADIATION DOSAGE (If Supplied By Facility): CTDIvol = ( 18.49 ) mGy, DLP = ( 786.04 ) mGycm TECHNIQUE: Transaxial imaging was performed without the administration of intravenous contrast material. Individualized dose optimization techniques were used for this CT. COMPARISON: 06 November 2020 plain films FINDINGS: There is a large left pleural effusion with extensive left lower lobe atelectasis. There is a heterogeneous density right lower lobe peripheral subpleural and pleural contacting consolidation or elongated lesion with intermixed hyperdensity, probably calcifications. This measures approximately 8 x 2.5 cm and conforms in shape to the pleural cavity. Central airways are patent. There is no pneumothorax or pulmonary edema. Mediastinal contents are evaluated in limited fashion due to lack of IV contrast. However, there is no mediastinal mass. Aorta and pulmonary artery are normal size. Heart is severely enlarged with severe coronary artery disease. Pericardium is normal. Osseous structures are intact with cervical ACDF. CT/Chest without Contrast IMPRESSION: 1. Large left pleural effusion. 2. Left lower lobe atelectasis. 3. Right pleural lesion, with presumed calcifications, possibly pleural parenchymal chronic infection or postinfectious sequela. Consider short-term reevaluation with contrast. 4. Severe cardiomegaly and severe coronary artery disease. Electronically Signed: Coby Quijano MD at 21:14 EDT Tel , Service support ,
--- NOTE | 2020-11-08 15:36 | NURSING ---
1500-WHILE I WAS STANDING OUTSIDE PTS ROOM UNSEEN LOOKING OVER MY PAPERS, PT WAS CALMLY SITTING IN WC WATCHING THE FOOTBALL GAME. MOMENTS AFTER I WALKED IN, PT STARTING MOANING AND INTERMITTENTLY GRASPING HIS RT RIB/SIDE, EARLIER IT WAS HIS LT SIDE HE C/O PAIN. I TOLD PT I HAD TO GRAB HIS PAIN MEDS AND LEFT THE ROOM, WHEN I CAME BACK, HE WAS SITTING OUT IN THE HALLWAY. I TOLD HIM TO COME ON INTO THE ROOM BECAUSE I WAS GOING TO GET HIS AFTERNOON MEDS AND HIS PAIN MEDS. I GOT HIS MEDS READY, IN THE MEANTIME PT HAD MOVED CLEAR TO THE END OF THE [place] BY ROOM 319. I TOLD HIM TO COME BACK TO THE ROOM SO I COULD GIVE HIM HIS MEDS. HE REMAINED WHERE HE WAS. I THEN TOLD HIM I HAD OTHER PTS TO GO SEE, TO COME TO THE ROOM IF HE WANTED HIS MEDS OR I WOULD DISPOSE OF THEM. HE THEN VERY SLOWLY RETURNED TO THE ROOM, I WAS JUST READY TO WALK AND WASTE THEM WITH ANOTHER NURSE. I GAVE PT HIS MEDS AND DRINK, TURNED TO THE COMPUTER, WHEN I TURNED BACK, I WITNESSED PT DUMPING THE MEDS DOWN INTO HIS ROBE. HE THEN PAUSED AND THEN SLOWLY STARTED TO LIFT THE CUP THAT HAD THE MEDS IN IT BACK STRAIGHT. I TOOK THE CUP, LOOKED INSIDE, PULLED PTS ROBE ASIDE AND RETRIEVED ALL OF THE MEDS EXCEPT THE TYLENOL. PTS REPLY TO ALL OF THIS WAS HOW DID THAT HAPPEN, I THOUGHT I TOOK THEM. I TOLD HIM I FOUND THEM ALL EXCEPT THE TYLENOL, HE SAID HE HAD TAKEN THE BIG ONE. I WATCHED PT SWALLOW ALL THE MEDS. HE THEN ASKED, AGAIN, WHEN THE DR WAS COMING IN AND STARTED SAYING HOW WE ARE SO DISRESPECTFUL, WONT LISTEN TO ME. I WANT TO SEE THE DR. I JUST LEFT THE ROOM
[2020-11-08 17:25] LABS: Bedside Glucose 453 mg/dL (70-110)
[2020-11-08] MEDS: Furosemide 80 MG Tablet PO (17:50)
[2020-11-08] MEDS: Insulin Lispro 100 UNIT/ML INSULN.PEN SC ×2 (17:55→22:22)
[2020-11-08] MEDS: traZODone 50 MG Tablet PO (21:59)
[2020-11-08] MEDS: Doxazosin 4 MG Tablet PO (22:00)
[2020-11-08] MEDS: Atorvastatin Calcium 80 MG Tablet PO (22:00)
[2020-11-08] MEDS: MELATONIN 10 MG TABLET 5 MG PO (22:01)
[2020-11-08 23:00] LABS: Bedside Glucose 341 mg/dL (70-110)
[2020-11-08] MEDS: 0.9% Saline Lock 10 ML Syringe IV (23:03)
[2020-11-09] VITALS (19 sets, daily range): BP systolic 113–142; BP diastolic 49–65; PULSE 64–92; RESP 18–20; TEMP 36.6–36.9; O2SAT 89–99
[2020-11-09] MEDS: LORazepam 0.5 MG Tablet PO ×3 (01:22→22:06)
[2020-11-09 06:20] LABS: Absolute Lymphocyte Count 0.72 X10^3/uL (0.83-4.51); Absolute Neutrophil Count 5.8 X10^3/uL (2.0-7.7); Basophil# 0.02 X10^3/uL; Basophil% 0.3 % (0-1); Eosinophil# 0.26 X10^3/uL; Eosinophils% 3.4 % (0-5); Hematocrit 25.7 % (40-54); Hemoglobin 7.9 g/dL (13.0-16.5); Lymphocyte # 0.72 X10^3/ul (0.83-4.51); Lymphocyte % 9.3 % (19-41); Mean Corp Hgb Conc 30.7 g/dL (32-36); Mean Corpuscular Volume 87.7 fL (80-94); Mean Platelet Vol. 8.7 fl (6.2-12.0); Monocyte# 0.95 X10^3/uL; Monocyte% 12.3 % (0-10); NRBC Flagged by Analyzer 0 % (0-5); Neutrophil # 5.78 X10^3/uL (2.7-7.7); Neutrophil % 74.4 % (47-70); Platelet Count 258 K/mm3 (150-450); RBC Distribution Width SD 51.4 fl (35.1-43.9); Red Blood Count 2.93 M/mm3 (4.6-6.2); White Blood Count 7.8 K/mm3 (4.4-11.0)
[2020-11-09] MEDS: Insulin Lispro 100 UNIT/ML INSULN.PEN SC ×4 (06:37→22:08)
[2020-11-09] MEDS: cloNIDine HCl 0.1 MG Tablet 0.3 MG PO ×3 (06:38→21:58)
[2020-11-09] MEDS: hydrALAZINE 50 MG Tablet 100 MG PO ×3 (06:38→21:59)
[2020-11-09 06:44] LABS: Anion Gap 8 (5-15); BUN 51 mg/dL (7-18); BUN/Creat Ratio 7.1 RATIO (10-20); Calcium,Total 8.2 mg/dL (8.5-10.1); Chloride 95 mmol/L (98-107); Creatinine, Serum 7.21 mg/dL (0.70-1.30); EST Glomerular Filtration Rate 8 mL/min (>60); Est Glom Filt Rate - Afr Amer 10 mL/min (>60); Estimated Creatinine Clearance 12.26 ml/min; Glucose 341 mg/dL (74-106); Potassium 4.7 mmol/L (3.5-5.1); Sodium Level 130 mmol/L (136-145)
[2020-11-09 06:56] LABS: Bedside Glucose 343 mg/dL (70-110)
[2020-11-09] MEDS: Ipratropium/Albuterol Sulfate 3 ML AMPUL.NEB INHALATION ×3 (07:36→19:41)
--- NOTE | 2020-11-09 09:12 | CASEMGMT ---
Per physician patient may be transferred to a tertiary care facility. PAMELA faxed updates to [facility] including PT/OT evaluations. Juli PFEIFFER
--- NOTE | 2020-11-09 09:14 | CASEMGMT ---
Insurance review for hospitals In-network with [facility] Community Plan Insurance if transfer is recommended is as follows: [facility], [employer], CC, [facility], [facility], OS, [facility]), and . Meño BSN RN CM
--- NOTE | 2020-11-09 09:47 | PCM.PN.REN ---
Subjective Subjective Following for ESRD. The patient has left-sided chest pain, worse with deep breathing. He has shortness of breath with exertion. There is no nausea, vomiting, or increasing edema. Objective Data Objective Data Vital Signs: Vital Signs Temp Pulse Resp BP Pulse Ox 98.0 F 71 20 H 142/56 H 99 11/09/20 04:00 11/09/20 07:52 11/09/20 07:38 11/09/20 06:38 11/09/20 08:03 Oxygen Flow Rate (L/min) [3] 4 Oxygen Flow Rate (L/min) [2] 4 Oxygen Flow Rate (L/min) [1 ( 4 Initial Baseline)] Oxygen Flow Rate (L/min) [ 2 AMBULATING with Oxygen #1] Oxygen Flow Rate (L/min) [At 2 REST with Oxygen] Oxygen Flow Rate (L/min) [At 0 REST on Room Air] Oxygen Flow Rate (L/min) 3.5 Oxygen Delivery Method [4] Room Air Oxygen Delivery Method [3] Nasal Cannula Oxygen Delivery Method [2] Nasal Cannula Oxygen Delivery Method [1 ( Nasal Cannula Initial Baseline)] Oxygen Delivery Method Room Air Weight: 86.1 kg Body Mass Index (BMI) 28.4 Intake & Output: Intake and Output for Last 24 Hours 11/07/20 11/08/20 11/09/20 23:59 23:59 23:59 Intake Total 1110 / 1110 Output Total 3850 / 3850 200 / 200 Balance -2740 / -2740 -200 / -200 Lab / Micro Data Result Diagrams: 11/09/20 06:00 11/09/20 06:00 Labs: Laboratory Results - last 24 hr 11/08/20 11:12: POC Glucose 293 H 11/08/20 17:20: POC Glucose 453 H* 11/08/20 22:21: POC Glucose 341 H 11/09/20 06:00: WBC 7.8, RBC 2.93 L, Hgb 7.9 L, Hct 25.7 L, MCV 87.7, MCH 27.0, MCHC 30.7 L, RDW Std Deviation 51.4 H, RDW Coeff of Kandis 16.0 H, Plt Count 258, MPV 8.7, Immature Gran % (Auto) 0.300, Neut % (Auto) 74.4 H, Lymph % (Auto) 9.3 L, [place] % (Auto) 12.3 H, Eos % (Auto) 3.4, Baso % (Auto) 0.3, Absolute Neuts (auto) 5.8, Absolute Lymphs (auto) 0.72 L, Nucleated RBC % 0 11/09/20 06:00: Sodium 130 L, Potassium 4.7, Chloride 95 L, Carbon Dioxide 27.0, Anion Gap 8, BUN 51 H, Creatinine 7.21 H, Estim Creat Clear Calc 12.26, Est GFR (MDRD) Af Amer 10 L, Est GFR (MDRD) Non-Af 8 L, BUN/Creatinine Ratio 7.1 L, Glucose 341 H, Calcium 8.2 L 11/09/20 06:35: POC Glucose 343 H Micro: Microbiology 11/05/20 10:30 Interface Orders SARS-CoV-2 Antigen (Rapid) - Final Radiography Diagnostic Testing: Radiology Impression Chest X-Ray 11/08/20 11:16 IMPRESSION: Poor inspiration with some bibasilar atelectasis. Electronically Signed: Juan Hanks MD at 13:24 EDT Tel , Service support , Chest CT 11/08/20 15:11 IMPRESSION: 1. Large left pleural effusion. 2. Left lower lobe atelectasis. 3. Right pleural lesion, with presumed calcifications, possibly pleural parenchymal chronic infection or postinfectious sequela. Consider short-term reevaluation with contrast. 4. Severe cardiomegaly and severe coronary artery disease. Electronically Signed: Coby Quijano MD at 21:14 EDT Tel , Service support , Rhythm Strip Rhythm Strip: Sinus Rhythm Rate: 64 Ectopy: None Physical Exam Narrative General: Alert and oriented x3. No apparent distress. Heart: S1-S2 RRR. Lungs: Decreased breath sound at bases. Abdomen: Soft, normal bowel sounds. No tenderness on palpation. Extremity: +1 edema of left lower extremity, status post right BKA. Assessment & Plan Assessment/Plan (1) End stage chronic kidney disease: PLAN: The patient usually dialyzes on TTS schedule. He is followed as outpatient by Dr. Martell. He dialyzes at [facility] in [place]. (2) Anemia: (3) CHF (congestive heart failure): (4) Hypoxia: PLAN: #Patient usually dialyzes on Monday and Monday. #Recurrent pleural effusion despite more frequent dialysis last week. #Agree with considering pleurodesis since pleural effusion is recurrent. #If patient is going for another thoracentesis today, I will hold off on ultrafiltration. The patient was cramping with dialysis on 11/07/2020. #Patient received 1 dose of Epogen November 06. To monitor hemoglobin. Will redose Epogen with dialysis again tomorrow. #Patient has bilateral pleural effusions with atelectasis left side more than the right side. Status post left-sided thoracentesis. However, pleural effusion quickly reaccumulate. See above. We will continue to follow Giovanni Johnson MD
[2020-11-09] MEDS: HYDROmorphone 0.5 MG/0.5 ML SYRINGE 0.2 MG IV ×2 (10:26→16:48)
[2020-11-09] MEDS: 0.9% Saline Lock 10 ML Syringe IV ×2 (10:26→16:49)
--- NOTE | 2020-11-09 11:33 | PN.HOSP_ITS ---
Documented by User: Lacho HEALY 11/09/20 11:45 Subjective Subjective Patient is a 60-year-old male comfortably resting in bed, alert and orient x3. Denies chest pain, shortness of breath, palpitations, hemoptysis, sputum production, fever, chills, N/V/D. Objective Data Objective Data Vital Signs: Vital Signs Temp Pulse Resp BP Pulse Ox 98.4 F 65 18 140/65 H 99 11/09/20 09:56 11/09/20 11:00 11/09/20 09:56 11/09/20 09:56 11/09/20 09:56 Oxygen Flow Rate (L/min) [3] 4 Oxygen Flow Rate (L/min) [2] 4 Oxygen Flow Rate (L/min) [1 ( 4 Initial Baseline)] Oxygen Flow Rate (L/min) [ 2 AMBULATING with Oxygen #1] Oxygen Flow Rate (L/min) [At 2 REST with Oxygen] Oxygen Flow Rate (L/min) [At 0 REST on Room Air] Oxygen Flow Rate (L/min) 4 Oxygen Delivery Method [4] Room Air Oxygen Delivery Method [3] Nasal Cannula Oxygen Delivery Method [2] Nasal Cannula Oxygen Delivery Method [1 ( Nasal Cannula Initial Baseline)] Oxygen Delivery Method Nasal Cannula Weight: 189 lb 13.088 oz Body Mass Index (BMI) 28.4 Intake & Output: Intake and Output for Last 24 Hours 11/07/20 11/08/20 11/09/20 23:59 23:59 23:59 Intake Total 1110 / 1110 Output Total 3850 / 3850 200 / 200 Balance -2740 / -2740 -200 / -200 Lab / Micro Data Result Diagrams: 11/09/20 06:00 11/09/20 06:00 Labs: Laboratory Results - last 24 hr 11/08/20 11:12: POC Glucose 293 H 11/08/20 17:20: POC Glucose 453 H* 11/08/20 22:21: POC Glucose 341 H 11/09/20 06:00: WBC 7.8, RBC 2.93 L, Hgb 7.9 L, Hct 25.7 L, MCV 87.7, MCH 27.0, MCHC 30.7 L, RDW Std Deviation 51.4 H, RDW Coeff of Kandis 16.0 H, Plt Count 258, MPV 8.7, Immature Gran % (Auto) 0.300, Neut % (Auto) 74.4 H, Lymph % (Auto) 9.3 L, [place] % (Auto) 12.3 H, Eos % (Auto) 3.4, Baso % (Auto) 0.3, Absolute Neuts (auto) 5.8, Absolute Lymphs (auto) 0.72 L, Nucleated RBC % 0 11/09/20 06:00: Sodium 130 L, Potassium 4.7, Chloride 95 L, Carbon Dioxide 27.0, Anion Gap 8, BUN 51 H, Creatinine 7.21 H, Estim Creat Clear Calc 12.26, Est GFR (MDRD) Af Amer 10 L, Est GFR (MDRD) Non-Af 8 L, BUN/Creatinine Ratio 7.1 L, Glucose 341 H, Calcium 8.2 L 11/09/20 06:35: POC Glucose 343 H Micro: Microbiology 11/05/20 10:30 Interface Orders SARS-CoV-2 Antigen (Rapid) - Final Radiography Diagnostic Testing: Radiology Impression Chest X-Ray 11/08/20 11:16 IMPRESSION: Poor inspiration with some bibasilar atelectasis. Electronically Signed: Juan Hanks MD at 13:24 EDT Tel , Service support , Chest CT 11/08/20 15:11 IMPRESSION: 1. Large left pleural effusion. 2. Left lower lobe atelectasis. 3. Right pleural lesion, with presumed calcifications, possibly pleural parenchymal chronic infection or postinfectious sequela. Consider short-term reevaluation with contrast. 4. Severe cardiomegaly and severe coronary artery disease. Electronically Signed: Cboy Quijano MD at 21:14 EDT Tel , Service support , Rhythm Strip Rhythm Strip: Sinus Rhythm Rate: 64 Ectopy: None Physical Exam Const alert, oriented x3 and no apparent distress HEENT head/scalp atraumatic and moist oral mucous membranes Head and Scalp: normocephalic Eyes PERRL, EOMs intact bilaterally and conjunctivae normal Neck no lymphadenopathy, supple and no JVD Resp normal respiratory effort, no retractions and no use of accessory muscles Auscultation: diminished lung sounds left lower Cardio regular rate, regular rhythm, no murmurs and no JVD GI normal to inspection, nondistended, normoactive bowel sounds, soft to palpation and non-tender Extremity normal to inspection, full ROM and no clubbing, cyanosis or edema Skin no rashes or lesions noted, no wounds, skin turgor normal and no jaundice Neuro CN's II-XII intact bilaterally Psych affect normal Assessment & Plan Assessment/Plan (1) Acute and chronic respiratory failure with hypoxia: (2) Pleural effusion: (3) End stage chronic kidney disease: PLAN: Day 4 Discharge planning: 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 1) acute on chronic respiratory failure with hypoxia, mixed etiology. Mixed etiology secondary to pleural effusion and acute on chronic CHF exacerbation, with unknown EF. Repeat chest CT and CXR demonstrates worsening pleural effusion in the left lung base. Ultrasound-guided thoracentesis ordered. Given recurrent nature of patient's pleural effusions, will likely need transfer to [facility] for cardiothoracic surgery consult and possible pleurodesis. No echocardiogram on file. Plan; thoracentesis as above, echocardiogram ordered, possible transfer to [facility] as above, continue carvedilol, continue IV Lasix 40 mg twice daily, continue o2 as above, scheduled duonebs ordered. 2) ESRD HD on , , schedule. Nephrology following. 3) HTN Elevated currently 159/65. Minoxidil initiated, continue IV Lasix, continue amlodipine, continue Coreg, continue clonidine, continue hydralazine and isosorbide. 4) DM2 Accu-Cheks with sliding scale insulin, continue Lantus. 5) hyperlipidemia Continue statin. Additional note: Patient has been noncompliant with medications while admitted. On 11/09 nursing staff caught patient not taking his medications and stuffing them in his day robe. Patient has also been refusing his prandial insulin injections, and his blood sugars have been subsequently elevated above 300. DVT prophylaxis - Lovenox Patient seen by Lacho Lopez PA-C, under the supervision of Dr. Moore. Documented by User: Dr. Anabelle Moore DO 11/09/20 15:00 Subjective Subjective Patient was seen in conjunction with NIRAJ Short. The following represents my independent history and feels examination. Please see below for addendum to the above. Patient complaining of left-sided chest pain related to his thoracentesis. He states that is more pleuritic in nature and wraps around. It was not there prior to his thoracentesis but it has been there since his thoracentesis. Nonc ontrasted CT of his chest yesterday showed recurrent pleural effusion that is large on the left side. He is scheduled for repeat thoracentesis today. He would like to ultimately try to get a VATS pleurodesis on his left chest if this is to be persistent. He had one on his right side approximately 2 years ago at [facility]. Objective Data Lab / Micro Data Result Diagrams: 11/09/20 06:00 11/09/20 06:00 Physical Exam Const alert, oriented x3 and no apparent distress Constitutional Narrative: Middle-aged -[place]ong[place] male sitting up in a in his bed on 4 L nasal cannula with an SPO2 of 99%, appears mildly uncomfortable and holding his left side, nontoxic-appearing however General Appearance: cooperative Exam Limitations: no limitations HEENT normocephalic, head/scalp atraumatic, hearing grossly normal bilaterally, moist oral mucous membranes and oropharynx normal Head and Scalp: normocephalic Eyes PERRL, EOMs intact bilaterally and conjunctivae normal Neck no lymphadenopathy, supple and no JVD Resp normal respiratory effort, no retractions and no use of accessory muscles Resp Narrative: Markedly diminished in the left base to approximately mid lung level, mildly diminished at the extreme right base Auscultation: Negative for crackles, rales, rhonchi or wheezes Cardio regular rate, regular rhythm, S1 normal heart sound, S2 normal heart sound, no murmurs, no rub, no gallops, no clicks and no JVD GI normal to inspection, nondistended, normoactive bowel sounds, soft to palpation, non-tender and non-distended GI Narrative: mild abdominal distension with positive fluid thrill. Extremity normal to inspection, full ROM and no clubbing, cyanosis or edema Extremity Narrative: Right lower extremity BKA Skin no rashes or lesions noted, no wounds, skin turgor normal, no jaundice, no petechiae and no mottling Skin Narrative: Old VATS scar noted on the right chest [id number] Neuro oriented x3, CN's II-XII intact bilaterally, moves all extremities and no focal motor deficits Sensorium / Orientation: awake, alert, oriented to person, oriented to place and oriented to time Speech: speech normal Psych affect normal Psych Narrative: Seems mildly anxious but pleasant Mood & Affect: anxious Assessment & Plan Assessment/Plan (1) Acute and chronic respiratory failure with hypoxia: (2) Pleural effusion: (3) End stage chronic kidney disease: (4) Anemia: PLAN: Assessment: Acute hypoxic respiratory failure Acute on chronic exacerbation of CHF -EF unknown Recurrent large left pleural effusion-transudative End-stage renal disease-HD dependent Hypertension DM-2 Hyperlipidemia Right BKA Chronic anemia GERD Debility Plan: -Discussed case with nephrology -They feel that he is euvolemic intravascularly an extra dialysis will likely not be beneficial -Agree with repeat thoracentesis and further evaluation for cause of effusions -She does make urine--> continue p.o. Lasix 80 mg twice daily -Repeat left thoracentesis today -Continue to monitor and if recurrent again would recommend Pleurx catheter and follow-up with CT surgery for possible VATS pleurodesis on the left -No bed availability for acute hospital transfer to have it done acutely -Patient's next planned dialysis session will be on Monday -Continue fluid restriction/salt restriction -Continue blood pressure medications as ordered--> BP is better today -Echocardiogram is pending -Patient was found pocketing his medications yesterday and not taking them, he is also refused insulin doses intermittently fasting blood sugar at 324 this morning increase Lantus 25 units
[2020-11-09] MEDS: Aspirin 81 MG TAB.CHEW PO (12:01)
[2020-11-09] MEDS: Pantoprazole Sodium 20 MG Tablet PO ×2 (12:02→22:02)
[2020-11-09] MEDS: amLODIPine 10 MG Tablet PO (12:02)
[2020-11-09] MEDS: Carvedilol 25 MG Tablet PO ×2 (12:03→18:58)
[2020-11-09] MEDS: Minoxidil 2.5 MG Tablet PO (12:03)
--- NOTE | 2020-11-09 12:03 | NURSING ---
AM meds given at this time after scheduled due per pt request. Pt refusing vitamins today. Requesting to hold off on Miralax until after thoracentesis.
[2020-11-09] MEDS: Isosorbide Mononitrate 30 MG Tablet PO ×2 (12:04→22:02)
[2020-11-09] MEDS: Furosemide 80 MG Tablet PO ×2 (12:04→18:58)
[2020-11-09] MEDS: oxyCODONE 5 MG Tablet 10 MG PO ×2 (12:13→22:06)
[2020-11-09 12:26] LABS: Bedside Glucose 325 mg/dL (70-110)
[2020-11-09 12:49] LABS: Pathologist Comment/Body Fluid Reviewed
--- NOTE | 2020-11-09 13:16 | CHAPLAIN ---
Type of Pastoral Visit _x__ Initial Visit ___ Follow-up Visit ___ On-call Visit ___ General Patient Visit ___ Spiritual Assessment ___ Family Conference ___ Bereavement ___ Rapid Response ___ Code Blue ___ Other (describe below) Pastoral Care Referral From _x__ Patient ___ Family ___ Nurse ___ Physician ___ Laboratory Mechanical Technician ___ Rn Mds ___ Other (describe below) Sacrament/Intervention _x__ Active listening ___ Anointing ___ Jain ___ Bereavement ___ Communion ___ Graciela exploration ___ ___ Life review _x__ Prayer ___ Reconciliation ___ Sacrament of Sick _x__ Supportive presence ___ Wedding ___ Other (describe below) Pastoral Comments patient got tired during this visit and requested another visit again; did give presence and time for pt to talk about his health and his coping of it all; prayer welcomed
[2020-11-09] MEDS: Calcium Acetate 667 MG Capsule PO ×2 (14:30→18:58)
--- NOTE | 2020-11-09 15:15 | US_ITS ---
PROCEDURE: ULTRASOUND GUIDED THORACENTESIS. DATE: 11/09/2020. INDICATION: Male, 60 years old. Left pleural effusion. PHYSICIAN: Que Grey M.D. PROCEDURE: The risks, benefits, and alternatives to the procedure were explained to the patient. The specific risks of bleeding, infection, and pneumothorax requiring chest tube insertion were discussed and accepted. Written informed consent was obtained. Ultrasonographic evaluation of the left lower pleural space was carried out. An adequate pocket was identified. The patient was placed in the sitting, upright position. The overlying skin was prepped and draped in sterile fashion. 1% lidocaine was administered subcutaneously for local anesthesia. Under ultrasound guidance, a 5 [place] thoracentesis needle/catheter system was advanced into the left posterior lower pleural fluid collection. Approximately 600 mL of dexter-colored fluid was drained. The catheter was removed, and a sterile dressing was applied. The patient tolerated the procedure well. A chest x-ray was ordered. US/Thoracentesis W US IMPRESSION: Ultrasound-guided left thoracentesis. Electronically Signed: Que Grey MD at 8:06 EDT , Service support ,
[2020-11-09] MEDS: Lidocaine 2% (5ml sdv) 5 ML VIAL.MPF (15:36)
--- NOTE | 2020-11-09 15:50 | RAD_ITS ---
STUDY: X-RAY CHEST REASON FOR EXAM: Male, 60 years old. Immediately post thoracentesis TECHNIQUE: AP inspiration and expiration views COMPARISON: Comparison is made with prior examination dated 11/06/2020. FINDINGS: The patient is status post left thoracentesis. There is no evidence of pneumothorax. Persistent pleural parenchymal changes at the left lung base. Mild residual pleural-parenchymal changes at the right lung base. RAD/Chest Insp/Exp 2 View IMPRESSION: Status post left thoracentesis. No evidence of pneumothorax. Electronically Signed: Que Grey MD at 9:59 EDT , Service support ,
--- NOTE | 2020-11-09 16:21 | CASEMGMT ---
DALIA VALLE completed palliative screening tool for [employer]. Patient meets criteria for palliative consult. Hospitalist updated and no consult at this time.
[2020-11-09] MEDS: Polyethylene Glycol 3350 17 GM PACKET PO (16:41)
[2020-11-09 16:51] LABS: Bedside Glucose 304 mg/dL (70-110)
[2020-11-09] MEDS: Atorvastatin Calcium 80 MG Tablet PO (21:58)
[2020-11-09] MEDS: traZODone 50 MG Tablet PO (21:59)
[2020-11-09] MEDS: MELATONIN 10 MG TABLET 5 MG PO (22:02)
[2020-11-09] MEDS: Doxazosin 4 MG Tablet PO (22:03)
[2020-11-09 22:26] LABS: Bedside Glucose 217 mg/dL (70-110)
[2020-11-10] VITALS (16 sets, daily range): BP systolic 114–133; BP diastolic 43–55; PULSE 65–141; RESP 16–20; TEMP 36.4–36.9; O2SAT 93–100
[2020-11-10 05:55] LABS: Absolute Lymphocyte Count 0.65 X10^3/uL (0.83-4.51); Absolute Neutrophil Count 5.1 X10^3/uL (2.0-7.7); Basophil# 0.03 X10^3/uL; Basophil% 0.4 % (0-1); Eosinophil# 0.26 X10^3/uL; Eosinophils% 3.8 % (0-5); Hematocrit 28.5 % (40-54); Hemoglobin 8.1 g/dL (13.0-16.5); Lymphocyte # 0.65 X10^3/ul (0.83-4.51); Lymphocyte % 9.5 % (19-41); Mean Corp Hgb Conc 28.4 g/dL (32-36); Mean Corpuscular Hgb 26.7 pg (27.0-32.0); Mean Corpuscular Volume 94.1 fL (80-94); Mean Platelet Vol. 9.3 fl (6.2-12.0); Monocyte# 0.85 X10^3/uL; Monocyte% 12.4 % (0-10); NRBC Flagged by Analyzer 0 % (0-5); Neutrophil # 5.05 X10^3/uL (2.7-7.7); Neutrophil % 73.5 % (47-70); Platelet Count 275 K/mm3 (150-450); RBC Distribution Width CV 16.1 % (11.6-14.6); RBC Distribution Width SD 55.7 fl (35.1-43.9); Red Blood Count 3.03 M/mm3 (4.6-6.2); White Blood Count 6.9 K/mm3 (4.4-11.0)
--- NOTE | 2020-11-10 06:00 | RAD_ITS ---
HISTORY: effusion EXAMINATION/TECHNIQUE: XR Chest 1 View: COMPARISON: November 09, 2020 FINDINGS: LINES/DEVICES: None. LUNGS: Persistent layering opacification in the mid and lower lungs, left greater than right, stable to minimally decreased from prior exam No pneumothorax. MEDIASTINUM: Unchanged cardiomegaly. MUSCULOSKELETAL: No acute osseous finding. Left axillary vascular stent noted. Cervical fixation hardware present. RAD/Chest 1 View (Portable) IMPRESSION: Cardiomegaly with persistent moderate to large left and small to moderate right pleural effusions, stable to minimally decreased from prior exam. Underlying consolidations are not radiographically excluded. at 0910 Reported and signed by: Ashvin Chambers MD Electronically Signed: Ashvin Chambers MD at 9:09 EDT Tel , Service support ,
[2020-11-10] MEDS: Insulin Lispro 100 UNIT/ML INSULN.PEN SC ×2 (06:22→11:55)
[2020-11-10 06:27] LABS: Anion Gap 11 (5-15); BUN 62 mg/dL (7-18); BUN/Creat Ratio 7.1 RATIO (10-20); Calcium,Total 8.3 mg/dL (8.5-10.1); Chloride 92 mmol/L (98-107); Creatinine, Serum 8.75 mg/dL (0.70-1.30); EST Glomerular Filtration Rate 7 mL/min (>60); Est Glom Filt Rate - Afr Amer 8 mL/min (>60); Glucose 260 mg/dL (74-106); Potassium 4.8 mmol/L (3.5-5.1); Sodium Level 126 mmol/L (136-145)
[2020-11-10] MEDS: LORazepam 0.5 MG Tablet PO ×3 (06:29→20:50)
[2020-11-10] MEDS: oxyCODONE 5 MG Tablet 10 MG PO ×2 (06:31→14:26)
[2020-11-10] MEDS: Acetaminophen 325 MG Tablet PO ×2 (06:32→14:25)
[2020-11-10 06:51] LABS: Bedside Glucose 275 mg/dL (70-110)
[2020-11-10] MEDS: Ipratropium/Albuterol Sulfate 3 ML AMPUL.NEB INHALATION ×2 (07:11→18:48)
[2020-11-10] MEDS: Carvedilol 25 MG Tablet PO (08:29)
[2020-11-10] MEDS: Aspirin 81 MG TAB.CHEW PO (08:30)
[2020-11-10] MEDS: Folic Acid 1 MG Tablet PO (08:31)
[2020-11-10] MEDS: Vitamin B Comp W-C Capsule 1 CAP PO (08:31)
[2020-11-10] MEDS: Calcium Acetate 667 MG Capsule PO (08:32)
[2020-11-10] MEDS: Isosorbide Mononitrate 30 MG Tablet PO ×2 (09:44→20:48)
[2020-11-10] MEDS: Furosemide 80 MG Tablet PO ×2 (09:46→20:48)
[2020-11-10] MEDS: Minoxidil 2.5 MG Tablet PO (09:47)
[2020-11-10] MEDS: Pantoprazole Sodium 20 MG Tablet PO ×2 (09:48→20:48)
[2020-11-10] MEDS: Cholecalciferol (VIT D3) 25 MCG TABLET (1,000 UNITS) PO (09:48)
[2020-11-10] MEDS: amLODIPine 10 MG Tablet PO (09:48)
--- NOTE | 2020-11-10 11:06 | PN.RENAL_ITS ---
Subjective Subjective Sitting in chair eating breakfast, denies any complaints. Objective Data Objective Data Vital Signs: Vital Signs Temp Pulse Resp BP Pulse Ox 98.2 F 65 16 133/55 H 100 11/10/20 08:19 11/10/20 08:19 11/10/20 08:19 11/10/20 08:19 11/10/20 08:19 Oxygen Flow Rate (L/min) [3] 4 Oxygen Flow Rate (L/min) [2] 4 Oxygen Flow Rate (L/min) [1 ( 4 Initial Baseline)] Oxygen Flow Rate (L/min) [ 2 AMBULATING with Oxygen #1] Oxygen Flow Rate (L/min) [At 2 REST with Oxygen] Oxygen Flow Rate (L/min) [At 0 REST on Room Air] Oxygen Flow Rate (L/min) 2 Oxygen Delivery Method [4] Room Air Oxygen Delivery Method [3] Room Air Oxygen Delivery Method [2] Room Air Oxygen Delivery Method [1 ( Room Air Initial Baseline)] Oxygen Delivery Method Nasal Cannula Weight: 88 kg Body Mass Index (BMI) 28.4 Intake & Output: Intake and Output for Last 24 Hours 11/08/20 11/09/20 11/10/20 23:59 23:59 23:59 Intake Total 900 / 900 Output Total 200 / 200 700 / 700 Balance -200 / -200 200 / 200 Lab / Micro Data Result Diagrams: 11/10/20 05:10 11/10/20 05:10 Labs: Laboratory Results - last 24 hr 11/06/20 14:25: Fl Pathologist Comment Reviewed 11/09/20 12:10: POC Glucose 325 H 11/09/20 16:39: POC Glucose 304 H 11/09/20 21:56: POC Glucose 217 H 11/10/20 05:10: WBC 6.9, RBC 3.03 L, Hgb 8.1 L, Hct 28.5 L, MCV 94.1 H D, MCH 26.7 L, MCHC 28.4 L D, RDW Std Deviation 55.7 H, RDW Coeff of Kandis 16.1 H, Plt Count 275, MPV 9.3, Immature Gran % (Auto) 0.400, Neut % (Auto) 73.5 H, Lymph % (Auto) 9.5 L, [place] % (Auto) 12.4 H, Eos % (Auto) 3.8, Baso % (Auto) 0.4, Absolute Neuts (auto) 5.1, Absolute Lymphs (auto) 0.65 L, Nucleated RBC % 0 11/10/20 05:10: Sodium 126 L, Potassium 4.8, Chloride 92 L, Carbon Dioxide 23.0, Anion Gap 11, BUN 62 H, Creatinine 8.75 H*, Estim Creat Clear Calc 10.10, Est GFR (MDRD) Af Amer 8 L, Est GFR (MDRD) Non-Af 7 L, BUN/Creatinine Ratio 7.1 L, Glucose 260 H, Calcium 8.3 L 11/10/20 06:16: POC Glucose 275 H Micro: Microbiology 11/05/20 10:30 Interface Orders SARS-CoV-2 Antigen (Rapid) - Final Radiography Diagnostic Testing: Radiology Impression Echocardiogram 11/08/20 12:52 Interpretation Summary Normal LV size. Moderate concentric left ventricular hypertrophy. Left ventricular systolic function is normal. The estimated ejection fraction is 60 %. Stage 2 diastolic dysfunction. The left atrium is moderately enlarged. The right atrium is moderately enlarged. Small left pleural effusion. Ordering Physician: Anabelle Moore Referring Physician: KENNETH RASCON Performed By: Niharika Gomez, EZEQUIEL, RVT Thoracentesis Ultrasound 11/09/20 15:15 IMPRESSION: Ultrasound-guided left thoracentesis. Electronically Signed: Que Grey MD at 8:06 EDT , Service support , Chest X-Ray 11/10/20 06:00 IMPRESSION: Cardiomegaly with persistent moderate to large left and small to moderate right pleural effusions, stable to minimally decreased from prior exam. Underlying consolidations are not radiographically excluded. at 0910 Reported and signed by: Ashvin Chambers MD Electronically Signed: Ashvin Chambers MD at 9:09 EDT Tel , Service support , Rhythm Strip Rhythm Strip: Sinus Rhythm Rate: 64 Ectopy: None Physical Exam Narrative General: Alert and oriented x3. No apparent distress. Heart: S1-S2 RRR. Lungs: Decreased breath sound at bases, L>R Abdomen: Soft, normal bowel sounds. No tenderness on palpation. Extremity: +1 edema of left lower extremity, status post right BKA. No thigh edema. Assessment & Plan Assessment/Plan (1) End stage chronic kidney disease: PLAN: The patient usually dialyzes on TTS schedule. He is followed as outpatient by Dr. Martell. He dialyzes at [facility] in [place]. (2) Anemia: (3) CHF (congestive heart failure): (4) Hypoxia: PLAN: #Patient dialyzes on Monday and Monday. Patient to di alyze today over 3.5 hours on a 2K bath with UF as patient/blood pressure tolerates, will try for at least 3L. Continue to challenge dry weight as patient can tolerate. Patient did dialyze/or IUF , Monday, Monday of last week and tolerated UF. Last pre-HD weight 11/07 91kg. Last weight 11/09 was 86kg. He is hypervolemic. #Recurrent pleural effusion despite more frequent dialysis last week. Patient has bilateral pleural effusions with atelectasis left side more than the right side. Status post left-sided thoracentesis. However, pleural effusion quickly reaccumulates. #Agree with considering pleurodesis since pleural effusion is recurrent. #Patient received 1 dose of Epogen November 06. We will give Epogen today with HD; 20,000 units. #Blood pressures acceptable on multiple antihypertensives. #Continue calcium acetate with meals. Can monitor phosphorus levels periodically.
--- NOTE | 2020-11-10 11:08 | CASEMGMT ---
PAMELA called [facility] to talk with Rosina in admissions. PAMELA faxed clinicals yesterday and wanted to make sure she got the information and that she started pre-cert. She was not available so PAMELA said PAMELA will call back later. Juli PFEIFFER
--- NOTE | 2020-11-10 11:26 | PCM.PN.HOSP ---
Documented by User: Lacho HEALY 11/10/20 11:39 Subjective Subjective Patient is a 60-year-old male comfortably resting in a chair, alert and oriented x3. Patient reports no shortness of breath although does endorse pain admitting from the area of the thoracentesis insertion site with inspiration. Denies chest pain, shortness of breath, palpitations, hemoptysis, sputum production, fever, chills, N/V/D. Objective Data Objective Data Vital Signs: Vital Signs Temp Pulse Resp BP Pulse Ox 98.2 F 65 16 133/55 H 100 11/10/20 08:19 11/10/20 08:19 11/10/20 08:19 11/10/20 08:19 11/10/20 08:19 Oxygen Flow Rate (L/min) [3] 4 Oxygen Flow Rate (L/min) [2] 4 Oxygen Flow Rate (L/min) [1 ( 4 Initial Baseline)] Oxygen Flow Rate (L/min) [ 2 AMBULATING with Oxygen #1] Oxygen Flow Rate (L/min) [At 2 REST with Oxygen] Oxygen Flow Rate (L/min) [At 0 REST on Room Air] Oxygen Flow Rate (L/min) 2 Oxygen Delivery Method [4] Room Air Oxygen Delivery Method [3] Room Air Oxygen Delivery Method [2] Room Air Oxygen Delivery Method [1 ( Room Air Initial Baseline)] Oxygen Delivery Method Nasal Cannula Weight: 194 lb 0.108 oz Body Mass Index (BMI) 28.4 Intake & Output: Intake and Output for Last 24 Hours 11/08/20 11/09/20 11/10/20 23:59 23:59 23:59 Intake Total 900 / 900 Output Total 200 / 200 700 / 700 Balance -200 / -200 200 / 200 Lab / Micro Data Result Diagrams: 11/10/20 05:10 11/10/20 05:10 Labs: Laboratory Results - last 24 hr 11/06/20 14:25: Fl Pathologist Comment Reviewed 11/09/20 12:10: POC Glucose 325 H 11/09/20 16:39: POC Glucose 304 H 11/09/20 21:56: POC Glucose 217 H 11/10/20 05:10: WBC 6.9, RBC 3.03 L, Hgb 8.1 L, Hct 28.5 L, MCV 94.1 H D, MCH 26.7 L, MCHC 28.4 L D, RDW Std Deviation 55.7 H, RDW Coeff of Kandis 16.1 H, Plt Count 275, MPV 9.3, Immature Gran % (Auto) 0.400, Neut % (Auto) 73.5 H, Lymph % (Auto) 9.5 L, [place] % (Auto) 12.4 H, Eos % (Auto) 3.8, Baso % (Auto) 0.4, Absolute Neuts (auto) 5.1, Absolute Lymphs (auto) 0.65 L, Nucleated RBC % 0 11/10/20 05:10: Sodium 126 L, Potassium 4.8, Chloride 92 L, Carbon Dioxide 23.0, Anion Gap 11, BUN 62 H, Creatinine 8.75 H*, Estim Creat Clear Calc 10.10, Est GFR (MDRD) Af Amer 8 L, Est GFR (MDRD) Non-Af 7 L, BUN/Creatinine Ratio 7.1 L, Glucose 260 H, Calcium 8.3 L 11/10/20 06:16: POC Glucose 275 H Micro: Microbiology 11/05/20 10:30 Interface Orders SARS-CoV-2 Antigen (Rapid) - Final Radiography Diagnostic Testing: Radiology Impression Echocardiogram 11/08/20 12:52 Interpretation Summary Normal LV size. Moderate concentric left ventricular hypertrophy. Left ventricular systolic function is normal. The estimated ejection fraction is 60 %. Stage 2 diastolic dysfunction. The left atrium is moderately enlarged. The right atrium is moderately enlarged. Small left pleural effusion. Ordering Physician: Anabelle Moore Referring Physician: KENNETH RASCON Performed By: Niharika Gomez, RDCS, RVT Thoracentesis Ultrasound 11/09/20 15:15 IMPRESSION: Ultrasound-guided left thoracentesis. Electronically Signed: Que Grey MD at 8:06 EDT , Service support , Chest X-Ray 11/10/20 06:00 IMPRESSION: Cardiomegaly with persistent moderate to large left and small to moderate right pleural effusions, stable to minimally decreased from prior exam. Underlying consolidations are not radiographically excluded. at 0910 Reported and signed by: Ashvin Chambers MD Electronically Signed: Ashvin Chambers MD at 9:09 EDT Tel , Service support , Rhythm Strip Rhythm Strip: Sinus Rhythm Rate: 64 Ectopy: None Physical Exam Const alert, oriented x3 and no apparent distress HEENT head/scalp atraumatic and moist oral mucous membranes Head and Scalp: normocephalic Eyes PERRL, EOMs intact bilaterally and conjunctivae normal Neck no lymphadenopathy, supple and no JVD Resp Resp Narrative: Lung sounds are still diminished at the left lung base, however are improved from yesterday. Effort and Inspection: labored Auscultation: diminished lung sounds Cardio regular rate, regular rhythm, no murmurs and no JVD GI normal to inspection, nondistended, normoactive bowel sounds, soft to palpation and non-tender Extremity normal to inspection, full ROM and no clubbing, cyanosis or edema Skin no rashes or lesions noted, no wounds, skin turgor normal and no jaundice Neuro CN's II-XII intact bilaterally Psych affect normal Assessment & Plan Assessment/Plan (1) Acute and chronic respiratory failure with hypoxia: (2) Pleural effusion: (3) CHF (congestive heart failure): PLAN: Day 5 Discharge planning: 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 1) acute on chronic respiratory failure with hypoxia, mixed etiology. Mixed etiology secondary to recurrent pleural effusions and acute on chronic diastolic CHF exacerbation with preserved ejection fraction. Chest x-ray obtained on 11/10 demonstrates improvement on left-sided pleural effusion. Additional chest x-ray will be obtained on the morning of 11/11 to determine whether patient is developing a another pleural effusion. At this time, discharge of this patient is pending recurrence of his left-sided pleural effusion, and if so whether patient will receive a Pleurx catheter or be transferred to [facility] for pleurodesis. Echocardiogram obtained on 11/10 demonstrates normal LV size, moderate LVH and estimated EF of 60% and stage II diastolic dysfunction. Plan; chest x-ray ordered for morning of 11/11, continue carvedilol, continue IV Lasix 40 mg twice daily, continue o2 as above, scheduled duonebs ordered. 2) ESRD Will be dialyzed today 11/10 consistent with his home schedule. HD on , schedule. Nephrology following. 3) HTN Stable. Minoxidil initiated, continue IV Lasix, continue amlodipine, continue Coreg, continue clonidine, continue hydralazine and isosorbide. 4) DM2 Accu-Cheks with sliding scale insulin, continue Lantus. 5) hyperlipidemia Continue statin. Additional note: Patient has been noncompliant with medications while admitted. On 11/09 nursing staff caught patient not taking his medications and stuffing them in his day robe. Patient has also been refusing his prandial insulin injections, and his blood sugars have been subsequently elevated above 300. DVT prophylaxis - Lovenox Patient seen by Lacho Lopez PA-C, under the supervision of Dr. Moore. Documented by User: Dr. Anabelle Moore DO 11/10/20 14:19 Subjective Subjective This patient was seen in conjunction with NIRAJ Short. The following represents my independent history and physical examination. Please see below for any addendum to the above. The patient reports improved breathing. He is currently on room air with oxygen saturations of 98%. He does tend to place oxygen on for comfort although he does not have oxygen desaturations. His thoracentesis was performed yesterday and 600 cc of fluid were removed. He continues to complain of pain on the left side with deep breathing and this has been present since his initial thoracentesis. Objective Data Lab / Micro Data Result Diagrams: 11/10/20 05:10 11/10/20 05:10 Physical Exam Const alert, oriented x3 and no apparent distress Constitutional Narrative: Middle-aged -[place] male sitting up in a chair eating breakfast on room air, appears mildly uncomfortable intermittently and holding his left side occasionally with deep breaths but was able to cough with deep breaths without having any pain, nontoxic General Appearance: cooperative Exam Limitations: no limitations HEENT normocephalic, head/scalp atraumatic, hearing grossly normal bilaterally, moist oral mucous membranes and oropharynx normal Head and Scalp: normocephalic Eyes PERRL, EOMs intact bilaterally and conjunctivae normal Neck no lymphadenopathy, supple and no JVD Resp normal respiratory effort, no retractions and no use of accessory muscles Resp Narrative: Improved lung sounds left base today Auscultation: Negative for crackles, rales, rhonchi or wheezes Cardio regular rate, regular rhythm, S1 normal heart sound, S2 normal heart sound, no murmurs, no rub, no gallops, no clicks and no JVD GI normal to inspection, nondistended, normoactive bowel sounds, soft to palpation, non-tender and non-distended GI Narrative: mild abdominal distension with positive fluid thrill. Extremity normal to inspection, full ROM and no clubbing, cyanosis or edema Extremity Narrative: Right lower extremity BKA Peripheral Pulses: Yes pulses 2+ throughout Skin no rashes or lesions noted, no wounds, skin turgor normal, no jaundice, no petechiae and no mottling Neuro oriented x3, CN's II-XII intact bilaterally, moves all extremities and no focal motor deficits Sensorium / Orientation: awake, alert, oriented to person, oriented to place and oriented to time Speech: speech normal Psych affect normal Mood & Affect: anxious Assessment & Plan Assessment/Plan (1) Acute and chronic respiratory failure with hypoxia: (2) Pleural effusion: (3) End stage chronic kidney disease: (4) Anemia: PLAN: Assessment: Acute hypoxic respiratory failure Acute on chronic exacerbation of diastolic CHF Recurrent large pleural effusion-transudative End-stage renal disease-HD dependent Hypertension DM-2 Hyperlipidemia Right BKA Chronic anemia GERD Debility Plan: -Discussed case with nephrology -They feel that he is euvolemic intravascularly an extra dialysis will likely not be beneficial -Patient follows with Dr. Hutchinson in [place] -continue p.o. Lasix 80 mg twice daily -Repeat left thoracentesis 11/09/2020 with 400 cc removal -Repeat CT of chest tomorrow morning we will do CTA given patient's continued pleuritic pain although I think this is likely related to his thoracentesis given the fact that he had did not start until after his thoracentesis was done -HD today per nephrology -Continue fluid restriction/salt restriction -Continue blood pressure medications as ordered--> blood pressure overall remains improved -Echocardiogram was performed on 11/09/2020 and shows an EF of 60% with moderate concentric LVH and stage II diastolic dysfunction, biatrial enlargement -Patient intermittently refuses insulin resulting in labile blood sugars -Continue increased dose of Lantus from yesterday for now and watch for compliance if patient is compliant will adjust insulin further -If patient reaccumulates left pleural fluid rapidly would recommend transfer to tertiary center for consideration for VATS pleurodesis on the left versus Pleurx catheter placement and outpatient follow-up with CT surgery. -Discuss further with his primary cancer registrar Charges/Coding Visit Charges Inpatient E&M: 09565 Subs Hosp L2
[2020-11-10 12:01] LABS: Bedside Glucose 287 mg/dL (70-110)
--- NOTE | 2020-11-10 14:20 | CASEMGMT ---
Addendum entered by Juli Ladd 11/10/20 15:11: Rosina and Niharika their unix systems administrator called SW back. They are concerned with bringing patient back to [facility] since they know he wants to go to another facility in [place]. They feel it makes more sense to send him to a facility in [place] from [facility]. They would be willing to make sure his belongings get to him wherever he would go. P[facility]EL[facility] to talk with [facility] sent him to a facility in [place] from here since that is where he wants to go. SW told him they would get his belongings to him including his vehicle. SW asked if he is okay with this and is it okay for SW to start making referrals to the other facilities. SW had to explain this numerous times. Patient kept dozing off. He wasn't understanding. PAMELA told him SW will talk with him tomorrow when he is more awake. PAMELA called Rosina at [facility] and let her know SW did not get very far with patient as he is sleepy. SW will talk with him tomorrow. She said that his first choice was [facility], but they did not have a bed for him. His next choices were [facility] and [facility]. No referrals were made to either of these 2 facilities as he came into the hospital. Juli PFEIFFER Original Note: PAMELA faxed updates to [facility]. [facility]. PAMELA asked her to please start the pre-cert. Juli PFEIFFER
--- NOTE | 2020-11-10 16:08 | CHAPLAIN ---
Type of Pastoral Visit ___ Initial Visit _x__ Follow-up Visit ___ On-call Visit ___ General Patient Visit ___ Spiritual Assessment ___ Family Conference ___ Bereavement ___ Rapid Response ___ Code Blue ___ Other (describe below) Pastoral Care Referral From _x__ Patient ___ Family ___ Nurse ___ Physician ___ Structural Worker ___ [place] Paver ___ Other (describe below) Sacrament/Intervention _x__ Active listening ___ Anointing ___ Pentecostalism ___ Bereavement ___ Communion ___ Graciela exploration ___ ___ Life review _x__ Prayer ___ Reconciliation ___ Sacrament of Sick _x__ Supportive presence ___ Wedding ___ Other (describe below) Pastoral Comments longer visit with this patient today who requested this follow up; pt expresses concerns or worries about what will happen to him and if he will ever be better; pt has spiritual concerns and wonders is God hearing me because I don't know since He doesn't heal me; prayer and presence welcome; pt was unfocused at times; pt asked for prayers and this was repeated so pt received two prayers
[2020-11-10 19:06] LABS: Bedside Glucose 115 mg/dL (70-110)
[2020-11-10] MEDS: Epoetin Alfa epbx 10,000 UNITS/ML 20000 UNIT IV (19:14)
--- NOTE | 2020-11-10 19:36 | DIALYSIS ---
Hemodialysis x4 hours completed at 1930 on a 2K bath, tolerated well, UF 4000mL, accessed via RUSSELL AVG using 15G needles, worked well, 1x dose of Retacrit 20,000units given with treatment, next treatment planned for
[2020-11-10] MEDS: MELATONIN 10 MG TABLET 5 MG PO (20:47)
[2020-11-10] MEDS: hydrALAZINE 50 MG Tablet 100 MG PO (20:48)
[2020-11-10] MEDS: Atorvastatin Calcium 80 MG Tablet PO (20:48)
[2020-11-10] MEDS: Doxazosin 4 MG Tablet PO (20:48)
[2020-11-10] MEDS: traZODone 50 MG Tablet PO (20:48)
[2020-11-10] MEDS: cloNIDine HCl 0.1 MG Tablet 0.3 MG PO (20:48)
[2020-11-10 23:05] LABS: Bedside Glucose 156 mg/dL (70-110)
[2020-11-11] VITALS (15 sets, daily range): BP systolic 117–138; BP diastolic 52–67; PULSE 68–96; RESP 16–20; TEMP 36.6–36.8; O2SAT 90–98
[2020-11-11] MEDS: Acetaminophen 325 MG Tablet PO ×2 (03:40→15:17)
[2020-11-11] MEDS: oxyCODONE 5 MG Tablet 10 MG PO ×2 (03:41→15:18)
[2020-11-11] MEDS: LORazepam 0.5 MG Tablet PO ×3 (03:41→17:19)
--- NOTE | 2020-11-11 06:00 | CT_ITS ---
STUDY: CTA CHEST REASON FOR EXAM: Male, 60 years old. chest pain RADIATION DOSAGE (If Supplied By Facility): CTDIvol = ( 15.17 ) mGy, DLP = ( 442.13 ) mGycm TECHNIQUE: The examination was performed with the intravenous administration of IV 100mL Isovue-370. Post-processing of the angiographic images was performed, with multiplanar reformation and 3D reconstruction. Individualized dose optimization techniques were used for this CT. COMPARISON: Chest x-ray 11/10/2020. 11/09/2020. CT chest noncontrast 11/08/2020. FINDINGS: Normal enhancement of the main pulmonary artery and right and left pulmonary arteries. Normal enhancement of the bilateral peripheral pulmonary arteries. There is no demonstrated pulmonary embolism. Normal thoracic aorta and visualized great vessels. There is no demonstrated aortic dissection. There is cardiomegaly. There are calcifications of the coronary arteries. Stable shift of heart, mediastinum and trachea to the right, multiple small lymph nodes, which are normal in size and morphology most compatible with reactive lymph hyperplasia. Prominent left hilar lymph nodes are stable. Normal visualized trachea and bronchi. The lungs are well expanded. Large atelectatic changes in the left base, mild symmetric centrilobular emphysema, hazy groundglass opacification in the left lung without significant change. Stable right pleural pleural-based heterogeneous ovoid mass with linear coarse hyperattenuation possible calcification or prior instillation of agents. This area measures approximately 7.4 x 2.8 x 5 cm and has a smaller more focal anterior basilar component along the right middle lobe extending to the diaphragm. Metallic density along the right lower chest wall. Large left pleural effusion with extension into the major fissure partially loculated along the upper posterior chest wall appears stable. Symmetric bilateral gynecomastia. Age-appropriate osseous structures. Normal visualized upper abdomen. CT/CTA Chest W/WO Contrast IMPRESSION: No demonstrated pulmonary embolism, aneurysm, leak or arterial dissection. Stable mild symmetric centrilobular emphysema, large left pleural effusion, partially loculated, large compressive basilar parenchymal changes. Stable pleural-based ovoid heterogeneous pleural-based lesion with calcification, post inflammation, post therapy with possible component of calcification or dense agents. Correlation to history recommended. Depending on suspicion level cellular and tissue sampling may be advantageous. Stable cardiomegaly, shift of heart, mediastinum and trachea to the right, bilateral symmetric gynecomastia and mediastinal lymphoid hyperplasia. Electronically Signed: Kacie Fontaine MD at 7:48 EDT , Service support ,
[2020-11-11 06:05] LABS: Absolute Lymphocyte Count 0.45 X10^3/uL (0.83-4.51); Absolute Neutrophil Count 4.8 X10^3/uL (2.0-7.7); Basophil# 0.02 X10^3/uL; Basophil% 0.3 % (0-1); Eosinophil# 0.12 X10^3/uL; Eosinophils% 1.9 % (0-5); Hematocrit 23.8 % (40-54); Hemoglobin 7.5 g/dL (13.0-16.5); Lymphocyte # 0.45 X10^3/ul (0.83-4.51); Lymphocyte % 7.2 % (19-41); Mean Corp Hgb Conc 31.5 g/dL (32-36); Mean Corpuscular Hgb 27.1 pg (27.0-32.0); Mean Corpuscular Volume 85.9 fL (80-94); Mean Platelet Vol. 8.9 fl (6.2-12.0); Monocyte% 12.8 % (0-10); NRBC Flagged by Analyzer 0 % (0-5); Neutrophil # 4.84 X10^3/uL (2.7-7.7); Neutrophil % 77.5 % (47-70); POSITIVE DIFFERENTIAL YES; Platelet Count 259 K/mm3 (150-450); RBC Distribution Width CV 15.7 % (11.6-14.6); RBC Distribution Width SD 49.5 fl (35.1-43.9); Red Blood Count 2.77 M/mm3 (4.6-6.2); White Blood Count 6.3 K/mm3 (4.4-11.0)
[2020-11-11 06:14] LABS: Differential Indicated SCAN CRITERIA MET
[2020-11-11 06:32] LABS: Differential Comment SCANNED
[2020-11-11] MEDS: Insulin Lispro 100 UNIT/ML INSULN.PEN SC ×4 (06:42→22:03)
[2020-11-11] MEDS: cloNIDine HCl 0.1 MG Tablet 0.3 MG PO ×3 (06:43→22:00)
[2020-11-11] MEDS: hydrALAZINE 50 MG Tablet 100 MG PO ×3 (06:43→22:01)
[2020-11-11 06:45] LABS: Anion Gap 7 (5-15); BUN 35 mg/dL (7-18); BUN/Creat Ratio 6.2 RATIO (10-20); Calcium,Total 8.1 mg/dL (8.5-10.1); Chloride 93 mmol/L (98-107); Creatinine, Serum 5.68 mg/dL (0.70-1.30); EST Glomerular Filtration Rate 11 mL/min (>60); Est Glom Filt Rate - Afr Amer 13 mL/min (>60); Estimated Creatinine Clearance 15.56 ml/min; Glucose 273 mg/dL (74-106); Potassium 4.7 mmol/L (3.5-5.1); Sodium Level 128 mmol/L (136-145)
[2020-11-11 06:55] LABS: Bedside Glucose 271 mg/dL (70-110)
[2020-11-11] MEDS: Ipratropium/Albuterol Sulfate 3 ML AMPUL.NEB INHALATION ×2 (06:59→18:34)
--- NOTE | 2020-11-11 09:15 | CASEMGMT ---
Patient will be getting a Pleurex catheter today. PAMELA spoke with patient and asked him about going to a new facility from here and [facility] will get him his stuff wherever he goes or go back to [facility] and wait on them to get him to a different facility and then he can get his own belongings. He is concerned about getting his own belongings especially his vehicle. SW told him that he is not going to be able to drive to a nursing facility. He will need to have someone pharmacy picking technician his vehicle. He was overwhelmed with all of this. SW asked him if he is okay with someone else getting his belongings to him or if he wants to get them himself. He wants to get them himself. PAMELA told him SW will talk with [facility] about this and the fact that he will have a pleurex catheter. PAMELA called Rosina at [facility] and let her know that patient prefers to get his own stuff. He is concerned about someone else driving his vehicle and he wants to get his own belongings. PAMELA also told her that he is getting a pleurex catheter today. She is headed to morning meeting and she will let them know about the pleurex catheter. They may not be able to take him with this. She will let SW know. Juli PFEIFFER
[2020-11-11] MEDS: Carvedilol 25 MG Tablet PO ×2 (09:40→17:19)
[2020-11-11] MEDS: Calcium Acetate 667 MG Capsule PO ×2 (09:40→17:19)
[2020-11-11] MEDS: Aspirin 81 MG TAB.CHEW PO (09:41)
[2020-11-11] MEDS: Vitamin B Comp W-C Capsule 1 CAP PO (09:41)
[2020-11-11] MEDS: amLODIPine 10 MG Tablet PO (09:41)
[2020-11-11] MEDS: Minoxidil 2.5 MG Tablet PO (09:41)
[2020-11-11] MEDS: Pantoprazole Sodium 20 MG Tablet PO ×2 (09:41→22:01)
[2020-11-11] MEDS: Isosorbide Mononitrate 30 MG Tablet PO ×2 (09:41→22:00)
[2020-11-11] MEDS: Polyethylene Glycol 3350 17 GM PACKET PO (09:42)
[2020-11-11] MEDS: Cholecalciferol (VIT D3) 25 MCG TABLET (1,000 UNITS) PO (09:42)
[2020-11-11] MEDS: Folic Acid 1 MG Tablet PO (09:42)
--- NOTE | 2020-11-11 11:53 | PCM.DC ---
Discharge Instructions Diet Discharge Diet: No restrictions Activity Discharge Activity: Return to Normal Activity Weight Bearing Status: Weight bearing as tolerated Dressing / Incision Call your doctor if you observe: Fever of 101 or Higher, Numbness or Tingling, Shortness of breath, Dizziness, Chest pain, Increased palpitations (irregular heartbeat) and Calf discomfort Follow Up Care Please Follow Up With: Primary care provider When: Within the next two weeks. Test Results: Test results from this visit will be discussed in further detail at your follow-up appointment, if applicable. Discharge Plan Admission Admit Date/Time: 11/05/20 12:24 Primary Reason for Your Visit: Shortness of breath Attending Provider: Anabelle Moore Primary Care Provider: Judith Dockery Consulting Providers: Gurvinder Vinson ; Manjit Milligan Instructions Patient Instructions: Thoracentesis Dc Discharge Orders/Prescriptions Prescriptions: Continued lorazepam [Ativan] 0.5 mg Tablet 0.5 mg PO TID PRN (Reason: Anxiety) RF: 0 amlodipine 10 mg Tablet 10 mg PO DAILY RF: 0 aspirin 81 mg Tablet 81 mg PO DAILY RF: 0 Afrin (oxymetazoline) 0.05 % Mist 2 spray INTRANASAL Q12H PRN (Reason: Congestion) RF: 0 carvedilol [Coreg] 25 mg Tablet 25 mg PO BID RF: 0 polyethylene glycol 3350 17 gram Powder In Packet 17 g PO DAILY RF: 0 clonidine HCl 0.3 mg Tablet 0.3 mg PO TID RF: 0 calcium acetate(phosphat bind) 667 mg Tablet 667 mg PO BID RF: 0 torsemide 100 mg Tablet 100 mg PO DAILY RF: 0 doxazosin [Cardura] 4 mg Tablet 4 mg PO QHS RF: 0 folic acid 1 mg Tablet 1 mg PO DAILY RF: 0 insulin lispro [Humalog KwikPen Insulin] 100 unit/mL Insulin Pen 0 unit SUBCUT TID RF: 0 hydralazine 100 mg Tablet 100 mg PO TID RF: 0 isosorbide mononitrate 30 mg Tablet Extended Release 24 Hr 30 mg PO DAILY RF: 0 Lantus Solostar U-100 Insulin 100 unit/mL (3 mL) Insulin Pen 18 unit SUBCUT DAILY RF: 0 atorvastatin [Lipitor] 80 mg Tablet 80 mg PO DAILY RF: 0 trazodone 50 mg Tablet 50 mg PO QHS RF: 0 oxycodone-acetaminophen [Percocet] 10-325 mg Tablet 1 tab PO Q8H PRN (Reason: pain) RF: 0 omeprazole 20 mg Capsule,Delayed Release(Dr/Ec) 20 mg PO BID RF: 0 B complex-vitamin C-folic acid 0.8 mg Tablet 1 tab PO DAILY RF: 0 cholecalciferol (vitamin D3) [Vitamin D3] 25 mcg (1,000 unit) Capsule 25 mcg PO DAILY RF: 0 melatonin 5 mg Tablet 5 mg PO QHS RF: 0 Referrals / Follow Up: Judith Dockery MD [Primary Care Provider] - Care Physician,No Primary [NON-STAFF] -
[2020-11-11 12:06] LABS: Bedside Glucose 297 mg/dL (70-110)
--- NOTE | 2020-11-11 12:28 | CASEMGMT ---
PAMELA spoke with [facility] and they can take patient back with a pleurex catheter. She asked that once SW gets this information to please fax it to her and she will submit everything to insurance. PAMELA spoke with patient again and he was okay with SW sending a referral to [facility] to see what they say. SW faxed referral to [facility]. SW did hear back rather quickly from Irina at [facility]. They can take patient. They do onsite dialysis there so they will need his dialysis information. She will e-mail SW a check list. She will also start the pre-cert. SW told her the situation with patient and his stuff being at [facility]. She said this is their last dialysis bed so she cannot hold it if he goes back to [facility]. She said it will be harder to get him there from [facility] than what it would be from the hospital. PAMELA told her SW will talk with patient and let her know. SW then spoke with patient letting him know [facility] can take him and he will get dialysis on site. SW told him that this is their last bed so if he goes back to [facility] he will miss out on the bed. He told SW to go ahead and take the bed. SW told him SW will work with [facility] on getting him his stuff. PAMELA called Rosina at [facility] and let her know this information. She will bring in his stuff and come up to talk with him regarding getting his car to him at [facility]. PAMELA called Irina back and let her know that patient would like the bed. Plan: d/c to [facility] in [place] pending insurance approval. Juli PFEIFFER
--- NOTE | 2020-11-11 13:24 | CASEMGMT ---
PAMELA received the checklist from [facility] regarding information for dialysis. PAMELA called [facility] in [place] where patient has been getting his dialysis while at [facility]. PAMELA obtained a fax number for records request. PAMELA faxed the request to [facility] in [place]. PAMELA spoke with surgeon who said patient thinks he is being transferred to a hospital in [place]. PAMELA went back to talk with patient. PAMELA told him that [facility] is a chcf not a hospital. PAMELA re-explained to patient that he would go from [facility] to [facility]. PAMELA told him he will get dialysis at [facility]. PAMELA told him Rosina from [facility] is bringing in his belongings and will talk with him about how to get his car to him at [facility]. PAMELA told him if he went back to [facility] it could be a couple of weeks before they could get him to a facility in [place]. He seemed to understand. Juli PFEIFFER
--- NOTE | 2020-11-11 13:35 | PCM.PN.HOSP ---
Documented by User: Lacho HEALY 11/11/20 13:54 Subjective Subjective Patient is a 60-year-old male comfortably resting in bed, alert and orient x3. Patient reports his shortness of breath is stable and has not worsened from yesterday. Denies chest pain, palpitations, hemoptysis, sputum production, fever, chills, N/V/D. Objective Data Objective Data Vital Signs: Vital Signs Temp Pulse Resp BP Pulse Ox 97.9 F 68 18 131/64 H 90 11/11/20 09:35 11/11/20 11:00 11/11/20 09:35 11/11/20 09:35 11/11/20 10:37 Oxygen Flow Rate (L/min) [3] 4 Oxygen Flow Rate (L/min) [2] 4 Oxygen Flow Rate (L/min) [1 ( 4 Initial Baseline)] Oxygen Flow Rate (L/min) [ 2 AMBULATING with Oxygen #1] Oxygen Flow Rate (L/min) [At 2 REST with Oxygen] Oxygen Flow Rate (L/min) [At 0 REST on Room Air] Oxygen Flow Rate (L/min) 2 Oxygen Delivery Method [4] Room Air Oxygen Delivery Method [3] Room Air Oxygen Delivery Method [2] Room Air Oxygen Delivery Method [1 ( Room Air Initial Baseline)] Oxygen Delivery Method Room Air Weight: 193 lb 9.054 oz Body Mass Index (BMI) 28.4 Intake & Output: Intake and Output for Last 24 Hours 11/09/20 11/10/20 11/11/20 23:59 23:59 23:59 Intake Total 900 / 900 840 / 840 Output Total 700 / 700 4000 / 4000 2 / 2 Balance 200 / 200 -4000 / -3760 838 / 838 Lab / Micro Data Result Diagrams: 11/11/20 05:48 11/11/20 05:48 Labs: Laboratory Results - last 24 hr 11/10/20 19:01: POC Glucose 115 H 11/10/20 20:47: POC Glucose 156 H 11/11/20 05:48: WBC 6.3, RBC 2.77 L, Hgb 7.5 L, Hct 23.8 L, MCV 85.9 D, MCH 27.1, MCHC 31.5 L D, RDW Std Deviation 49.5 H, RDW Coeff of Kandis 15.7 H, Plt Count 259, MPV 8.9, Immature Gran % (Auto) 0.300, Neut % (Auto) 77.5 H, Lymph % (Auto) 7.2 L, Harnett % (Auto) 12.8 H, Eos % (Auto) 1.9, Baso % (Auto) 0.3, Absolute Neuts (auto) 4.8, Absolute Lymphs (auto) 0.45 L, Nucleated RBC % 0, Differential Comment SCANNED 11/11/20 05:48: Sodium 128 L, Potassium 4.7, Chloride 93 L, Carbon Dioxide 28.0, Anion Gap 7, BUN 35 H, Creatinine 5.68 H, Estim Creat Clear Calc 15.56, Est GFR (MDRD) Af Amer 13 L, Est GFR (MDRD) Non-Af 11 L, BUN/Creatinine Ratio 6.2 L, Glucose 273 H, Calcium 8.1 L 11/11/20 06:41: POC Glucose 271 H 11/11/20 11:51: POC Glucose 297 H Micro: Microbiology 11/05/20 10:30 Interface Orders SARS-CoV-2 Antigen (Rapid) - Final Radiography Diagnostic Testing: Radiology Impression Chest X-Ray 11/09/20 15:50 IMPRESSION: Status post left thoracentesis. No evidence of pneumothorax. Electronically Signed: Que Grey MD at 9:59 EDT , Service support , Chest CTA 11/11/20 06:00 IMPRESSION: No demonstrated pulmonary embolism, aneurysm, leak or arterial dissection. Stable mild symmetric centrilobular emphysema, large left pleural effusion, partially loculated, large compressive basilar parenchymal changes. Stable pleural-based ovoid heterogeneous pleural-based lesion with calcification, post inflammation, post therapy with possible component of calcification or dense agents. Correlation to history recommended. Depending on suspicion level cellular and tissue sampling may be advantageous. Stable cardiomegaly, shift of heart, mediastinum and trachea to the right, bilateral symmetric gynecomastia and mediastinal lymphoid hyperplasia. Electronically Signed: Kacie Fontaine MD at 7:48 EDT , Service support , Rhythm Strip Rhythm Strip: Sinus Rhythm Rate: 64 Ectopy: None Physical Exam Const alert, oriented x3 and no apparent distress HEENT head/scalp atraumatic and moist oral mucous membranes Head and Scalp: normocephalic Eyes PERRL, EOMs intact bilaterally and conjunctivae normal Neck no lymphadenopathy, supple and no JVD Resp normal respiratory effort, no retractions and no use of accessory muscles Resp Narrative: Currently satting 94% on room air. Auscultation: diminished lung sounds Cardio regular rate, regular rhythm, no murmurs and no JVD GI normal to inspection, nondistended, normoactive bowel sounds, soft to palpation and non-tender Extremity normal to inspection, full ROM and no clubbing, cyanosis or edema Skin no rashes or lesions noted, no wounds, skin turgor normal and no jaundice Neuro CN's II-XII intact bilaterally Psych affect normal Assessment & Plan Assessment/Plan (1) Acute and chronic respiratory failure with hypoxia: (2) Pleural effusion: (3) CHF (congestive heart failure): PLAN: Day 6 Discharge planning: Patient to discharge back to [facility] when medically ready. Earliest possible discharge is monday 11/13 pending successful PLeurex catheter insertion. 1) acute on chronic respiratory failure with hypoxia, mixed etiology. Mixed etiology secondary to recurrent pleural effusions and acute on chronic diastolic CHF exacerbation with preserved ejection fraction. Repeat chest CTA obtained on 11/11 demonstrated another recurrence of the large left-sided pleural effusion, despite thoracentesis on 11/10. General surgery consult was obtained for insertion of Pleurex catheter, Dr. Milligan agreed to perform procedure on 11/11 given his current schedule and patient hemodialysis schedule. Echocardiogram obtained on 11/10 demonstrates normal LV size, moderate LVH and estimated EF of 60% and stage II diastolic dysfunction. Plan; Pleurx catheter insertion on 11/11, patient is to be made n.p.o. on the midnight of 11/10 in preparation for procedure, outpatient VATS pleurodesis to be coordinated with Dr. Rosas of [facility], continue carvedilol, continue Lasix, continue scheduled duo nebs, continue O2 per protocol. 2) ESRD HD on , , schedule. Nephrology following. 3) HTN Stable. Minoxidil initiated, continue IV Lasix, continue amlodipine, continue Coreg, continue clonidine, continue hydralazine and isosorbide. 4) DM2 Accu-Cheks with sliding scale insulin, continue Lantus. 5) hyperlipidemia Continue statin. Additional note: Patient has been noncompliant with medications while admitted. On 11/09 nursing staff caught patient not taking his medications and stuffing them in his day robe. Patient has also been refusing his prandial insulin injections, and his blood sugars have been subsequently elevated above 300. DVT prophylaxis - Lovenox Patient seen by Lacho Lopez PA-C, under the supervision of Dr. Moore. Documented by User: Dr. Anabelle Moore DO 11/11/20 15:54 Subjective Subjective This patient was seen in conjunction with NIRAJ Short. The following represents my independent history and physical examination. Please see below for any addendum of the above. Patient remains with some intermittent shortness of breath more with lying. His CT shows recurrence of his effusion. He has had 2 thoracentesis during this hospitalization. We did discuss the placement of a Pleurx catheter and will pursue obtaining this in the near future. All questions answered. He does indicate he has continued left-sided chest pain related to his thoracentesis spot. Objective Data Lab / Micro Data Result Diagrams: 11/11/20 05:48 11/11/20 05:48 Physical Exam Const alert, oriented x3 and no apparent distress Constitutional Narrative: Middle-aged -[place] male sitting up in a chair eating breakfast on room air, appears comfortable this morning-more so than yesterday General Appearance: cooperative Exam Limitations: no limitations HEENT normocephalic, head/scalp atraumatic, hearing grossly normal bilaterally, moist oral mucous membranes and oropharynx normal Head and Scalp: normocephalic Resp normal respiratory effort, no retractions and no use of accessory muscles Resp Narrative: Diminished left base Auscultation: Negative for crackles, rales, rhonchi or wheezes Cardio regular rate, regular rhythm, S1 normal heart sound, S2 normal heart sound, no murmurs, no rub, no gallops, no clicks and no JVD GI normal to inspection, nondistended, normoactive bowel sounds, soft to palpation, non-tender and non-distended GI Narrative: mild abdominal distension with positive fluid thrill. Extremity normal to inspection, full ROM and no clubbing, cyanosis or edema Extremity Narrative: Right lower extremity BKA Skin no rashes or lesions noted, no wounds, skin turgor normal, no jaundice, no petechiae and no mottling Neuro oriented x3, moves all extremities and no focal motor deficits Sensorium / Orientation: awake, alert, oriented to person, oriented to place and oriented to time Speech: speech normal Psych affect normal Assessment & Plan Assessment/Plan (1) Acute and chronic respiratory failure with hypoxia: (2) End stage chronic kidney disease: (3) Anemia: (4) Recurrent pleural effusion on left: PLAN: Assessment: Acute hypoxic respiratory failure Acute on chronic exacerbation of diastolic CHF Recurrent large pleural effusion-transudative End-stage renal disease-HD dependent Hypertension DM-2 Hyperlipidemia Right BKA Chronic anemia GERD Debility Plan: -Discussed case with nephrology -They feel that he is euvolemic intravascularly an extra dialysis will likely not be beneficial -Patient follows with Dr. Hutchinson in [place] -continue p.o. Lasix 80 mg twice daily -Repeat left thoracentesis 11/09/2020 with 400 cc removal -A.m. CT from today shows recurrence of a left pleural effusion that is large and partially loculated with compressive atelectasis and a pleural-based stable ovoid heterogeneous lesion with calcification -Surgery has been consulted for the placement of a Pleurx catheter--> this will be scheduled to be done on 11/13/2020 -Continue fluid restriction/salt restriction -Continue blood pressure medications as ordered--> blood pressure overall remains improved -Echocardiogram was performed on 11/09/2020 and shows an EF of 60% with moderate concentric LVH and stage II diastolic dysfunction, biatrial enlargement -Patient intermittently refuses insulin resulting in labile blood sugars -We will increase basal insulin to 30 units daily continue to evaluate blood sugars
--- NOTE | 2020-11-11 15:25 | PCM.HP.STD ---
[facility] - General General Date of Admission: 11/05/20 HPI Narrative LESLIE CRUZ, is a 60 M who presents to [facility] from [place] [facility] facility with complaints of shortness of breath. He was found to have significant bilateral pleural effusions left greater than right. Mr. Cruz has a history of congestive heart failure, diabetes mellitus, and ESRD on HD TTS. He also has a history of pleural effusions managed with a right thoracotomy and mechanical pleurodesis (procedure performed in [facility] several years ago). This admission, Mr. Cruz is undergone 2 thoracentesis procedures with radiology. Despite drainage of 2 L, these effusions have reaccumulated. Fluid analysis found no evidence of malignant cells in the fluid was consistent with a transudate. As above, Mr. Cruz resides in a [place] [facility] facility currently. He states he has been there for approximately 1 month after his sisters jointly decided he needed closer supervision. In addition to the complex medical history above, he also has limited mobility secondary to a right above-knee amputation. He states his ultimate goal is to find his way into an assisted living situation. Surgery was consulted to consider placement of a Pleurx catheter as a temporizing solution until the patient can be evaluated for possible left-sided pleurodesis. There are currently no inpatient beds in the region and the wait lists are quite long. [facility] Medical History (Updated 11/11/20 @ 15:[address] Manjit Milligan MD) Chronic kidney disease (CKD) Congestive heart failure (CHF) Diabetes mellitus HLD (hyperlipidemia) HTN (hypertension) Home Medications Afrin (oxymetazoline) 2 spray INTRANASAL Q12H PRN 11/05/20 [History Last Taken 11/05/20 09:00] B complex-vitamin C-folic acid 1 tab PO DAILY 11/05/20 [History Last Taken 11/04/20 09:00] Lantus Solostar U-100 Insulin 18 unit SUBCUT DAILY 11/05/20 [History Last Taken 11/04/20 21:00] amlodipine 10 mg PO DAILY 11/05/20 [History Last Taken 11/04/20 09:00] aspirin 81 mg PO DAILY 11/05/20 [History Last Taken 11/04/20 09:00] atorvastatin [Lipitor] 80 mg PO DAILY 11/05/20 [History Last Taken 11/04/20 21:00] calcium acetate(phosphat bind) 667 mg PO BID 11/05/20 [History Last Taken 11/04/20 17:00] carvedilol [Coreg] 25 mg PO BID 11/05/20 [History Last Taken 11/04/20 21:00] cholecalciferol (vitamin D3) [Vitamin D3] 25 mcg PO DAILY 11/05/20 [History Last Taken 11/04/20 09:00] clonidine HCl 0.3 mg PO TID 11/05/20 [History Last Taken 11/05/20 14:00] doxazosin [Cardura] 4 mg PO QHS 11/05/20 [History Last Taken 11/04/20 21:00] folic acid 1 mg PO DAILY 11/05/20 [History Last Taken 11/04/20 09:00] hydralazine 100 mg PO TID 11/05/20 [History Last Taken 11/05/20 14:00] insulin lispro [Humalog KwikPen Insulin] 0 unit SUBCUT TID 11/05/20 [History Last Taken 11/05/20 12:00] isosorbide mononitrate 30 mg PO DAILY 11/05/20 [History Last Taken 11/04/20 09:00] lorazepam [Ativan] 0.5 mg PO TID PRN 11/05/20 [History Last Taken 11/05/20 14:00] melatonin 5 mg PO QHS 11/05/20 [History Last Taken 11/04/20 21:00] omeprazole 20 mg PO BID 11/05/20 [History Last Taken 11/04/20 21:00] oxycodone-acetaminophen [Percocet] 1 tab PO Q8H PRN 11/05/20 [History Last Taken Unknown] polyethylene glycol 3350 17 g PO DAILY 11/05/20 [History Last Taken 11/04/20 09:00] torsemide 100 mg PO DAILY 11/05/20 [History Last Taken 11/04/20 09:00] trazodone 50 mg PO QHS 11/05/20 [History Last Taken 11/04/20 21:00] Allergy/AdvReac Type Severity Reaction Status Date / Time hydrocodone Allergy PT UNSURE Verified 11/05/20 09:38 OF REACTION metoprolol Allergy PT UNSURE Verified 11/05/20 09:38 OF REACTION Social History Smoking Status: Current some day smoker tobacco type: cigars ROS Respiratory/Chest Respiratory/Chest: Reports shortness of breath with exertion Vital Signs Vital Signs Vital Signs: 11/10/20 18:48 11/10/20 19:00 11/10/20 19:35 Temperature 98.2 F Temperature Source Oral Pulse Rate 68 70 73 Respiratory Rate 20 H 20 H Respiratory Effort Respiratory Depth Respiratory Pattern Normal Blood Pressure 125/53 H Blood Pressure Mean 77 Blood Pressure Source Monitor Blood Pressure Position Semi-Fowlers Blood Pressure Location Right Arm Pulse Ox 100 Oxygen Delivery Method Nasal Cannula Oxygen Flow Rate (L/min) 4 11/10/20 20:48 11/10/20 20:55 11/10/20 22:10 Temperature 98.4 F Temperature Source Temporal Pulse Rate 71 71 Respiratory Rate 16 Respiratory Effort Respiratory Depth Respiratory Pattern Blood Pressure 118/52 L Blood Pressure Mean 74 Blood Pressure Source Monitor Blood Pressure Position Sitting Blood Pressure Location Right Arm Pulse Ox 97 Oxygen Delivery Method Nasal Cannula Room Air Oxygen Flow Rate (L/min) 2 11/11/20 02:45 11/11/20 03:00 11/11/20 04:10 Temperature 98.0 F Temperature Source Temporal Pulse Rate 96 71 Respiratory Rate 18 Respiratory Effort Normal Non-Labored Respiratory Depth Normal Respiratory Pattern Normal Blood Pressure 117/52 L Blood Pressure Mean 73 Blood Pressure Source Monitor Blood Pressure Position Sitting Blood Pressure Location Right Arm Pulse Ox 95 Oxygen Delivery Method Nasal Cannula Room Air Oxygen Flow Rate (L/min) 2 11/11/20 06:43 11/11/20 06:59 11/11/20 07:00 Temperature Temperature Source Pulse Rate 72 71 71 Respiratory Rate 16 Respiratory Effort Respiratory Depth Respiratory Pattern Normal Blood Pressure Blood Pressure Mean Blood Pressure Source Blood Pressure Position Blood Pressure Location Pulse Ox 91 Oxygen Delivery Method Room Air Oxygen Flow Rate (L/min) 11/11/20 09:30 11/11/20 09:35 11/11/20 10:37 Temperature 97.9 F Temperature Source Temporal Pulse Rate 70 Respiratory Rate 18 Respiratory Effort Normal Non-Labored Respiratory Depth Normal Respiratory Pattern Normal Blood Pressure 131/64 H Blood Pressure Mean 86 Blood Pressure Source Monitor Blood Pressure Position Sitting Blood Pressure Location Left Arm Pulse Ox 94 90 Oxygen Delivery Method Room Air Room Air Oxygen Flow Rate (L/min) 11/11/20 11:00 08/25/21 15:10 Temperature 98.2 F Temperature Source Temporal Pulse Rate 68 72 Respiratory Rate 18 Respiratory Effort Respiratory Depth Respiratory Pattern Blood Pressure 125/61 H Blood Pressure Mean 82 Blood Pressure Source Monitor Blood Pressure Position Sitting Blood Pressure Location Right Forearm Pulse Ox 98 Oxygen Delivery Method Room Air Oxygen Flow Rate (L/min) Weight Weight: 193 lb 9.054 oz Body Mass Index (BMI) 28.4 Physical Exam Const alert, oriented x3 and no apparent distress Constitutional Narrative: Mildly anxious General Appearance: cooperative Chest Chest Narrative: Patient has a now well?healed right-sided chest incision consistent with a prior anterior lateral thoracotomy and a smaller scar from a prior chest tube just inferiorly. He has some tenderness about this thoracotomy incision with palpation. Chest: scars Resp Resp Narrative: Patient has no increased respiratory effort at rest, however, when he attempts a standing position to reposition his gown he becomes dyspneic. Auscultation: diminished lung sounds left; Negative for rhonchi or wheezes Cardio regular rate Heart Sounds: murmur systolic Results Lab / Micro Data Result Diagrams: 11/11/20 05:48 11/11/20 05:48 Labs: Laboratory Results - last 24 hr 11/10/20 19:01: POC Glucose 115 H 11/10/20 20:47: POC Glucose 156 H 11/11/20 05:48: WBC 6.3, RBC 2.77 L, Hgb 7.5 L, Hct 23.8 L, MCV 85.9 D, MCH 27.1, MCHC 31.5 L D, RDW Std Deviation 49.5 H, RDW Coeff of Kandis 15.7 H, Plt Count 259, MPV 8.9, Immature Gran % (Auto) 0.300, Neut % (Auto) 77.5 H, Lymph % (Auto) 7.2 L, [place] % (Auto) 12.8 H, Eos % (Auto) 1.9, Baso % (Auto) 0.3, Absolute Neuts (auto) 4.8, Absolute Lymphs (auto) 0.45 L, Nucleated RBC % 0, Differential Comment SCANNED 11/11/20 05:48: Sodium 128 L, Potassium 4.7, Chloride 93 L, Carbon Dioxide 28.0, Anion Gap 7, BUN 35 H, Creatinine 5.68 H, Estim Creat Clear Calc 15.56, Est GFR (MDRD) Af Amer 13 L, Est GFR (MDRD) Non-Af 11 L, BUN/Creatinine Ratio 6.2 L, Glucose 273 H, Calcium 8.1 L 11/11/20 06:41: POC Glucose 271 H 11/11/20 11:51: POC Glucose 297 H Rhythm Strip Rhythm Strip: Sinus Rhythm Rate: 64 Ectopy: None Radiology Impression Chest X-Ray 11/09/20 15:50 IMPRESSION: Status post left thoracentesis. No evidence of pneumothorax. Electronically Signed: Que Grey MD at 9:59 EDT , Service support , Chest CTA 11/11/20 06:00 IMPRESSION: No demonstrated pulmonary embolism, aneurysm, leak or arterial dissection. Stable mild symmetric centrilobular emphysema, large left pleural effusion, partially loculated, large compressive basilar parenchymal changes. Stable pleural-based ovoid heterogeneous pleural-based lesion with calcification, post inflammation, post therapy with possible component of calcification or dense agents. Correlation to history recommended. Depending on suspicion level cellular and tissue sampling may be advantageous. Stable cardiomegaly, shift of heart, mediastinum and trachea to the right, bilateral symmetric gynecomastia and mediastinal lymphoid hyperplasia. Electronically Signed: Kacie Fontaine MD at 7:48 EDT , Service support , Assessment & Plan Assessment/Plan (1) Recurrent pleural effusion on left: PLAN: Patient experiencing recurrent pleural effusions despite significant drainage with thoracenteses. Fluid most consistent with transudative process?likely related to patient's diagnoses of congestive heart failure and end-stage renal disease. He has had prior mechanical pleurodesis via a right-sided thoracotomy with a good outcome. Mechanical pleurodesis on the left with seem to be the most optimal treatment as well given the presence of what appears to be some trapped lung. However, since we are unable to offer this and the patient will likely have a bit of the weight before he is evaluated by thoracic surgery, a Pleurx catheter would serve as a reasonable temporizing measure. Treatment options were reviewed with Mr. Cruz and he is accepting of this recommendation. At this time, we will plan to proceed with a left-sided Pleurx catheter insertion on 11/13/2020. Please keep patient n.p.o. past midnight the day prior. Charges/Coding Visit Charges Inpatient E&M: 82197 Init Hosp L2
--- NOTE | 2020-11-11 15:42 | CASEMGMT ---
Rosina from [facility] did bring patient's belongings. PAMELA faxed all necessary information to Irina at [facility] to set up dialysis. Patient will not be getting his pleurex catheter until Monday. PAMELA called Irina at [facility] and let her know. Juli Ladd SALES [employer]PRESENT[employer]IVE [employer] [place]
[2020-11-11] MEDS: Furosemide 80 MG Tablet PO (17:19)
[2020-11-11 17:31] LABS: Bedside Glucose 433 mg/dL (70-110)
[2020-11-11] MEDS: MELATONIN 10 MG TABLET 5 MG PO (22:00)
[2020-11-11] MEDS: Atorvastatin Calcium 80 MG Tablet PO (22:01)
[2020-11-11] MEDS: traZODone 50 MG Tablet PO (22:01)
[2020-11-11] MEDS: Doxazosin 4 MG Tablet PO (22:02)
[2020-11-11 22:20] LABS: Bedside Glucose 353 mg/dL (70-110)
--- NOTE | 2020-11-11 23:16 | PCM.PN.REN ---
Subjective Subjective Following for ESRD. No CP. STill with SOB on exertion. Objective Data Objective Data Vital Signs: Vital Signs Temp Pulse Resp BP Pulse Ox 98.2 F 72 20 H 125/61 H 98 11/11/20 15:10 11/11/20 22:01 11/11/20 18:37 11/11/20 15:18 11/11/20 15:10 Oxygen Flow Rate (L/min) [3] 4 Oxygen Flow Rate (L/min) [2] 4 Oxygen Flow Rate (L/min) [1 ( 4 Initial Baseline)] Oxygen Flow Rate (L/min) [ 2 AMBULATING with Oxygen #1] Oxygen Flow Rate (L/min) [At 2 REST with Oxygen] Oxygen Flow Rate (L/min) [At 0 REST on Room Air] Oxygen Flow Rate (L/min) 2 Oxygen Delivery Method [4] Room Air Oxygen Delivery Method [3] Room Air Oxygen Delivery Method [2] Room Air Oxygen Delivery Method [1 ( Room Air Initial Baseline)] Oxygen Delivery Method Room Air Weight: 87.8 kg Body Mass Index (BMI) 28.4 Intake & Output: Intake and Output for Last 24 Hours 11/09/20 11/10/20 11/11/20 23:59 23:59 23:59 Intake Total 900 / 900 1200 / 1200 Output Total 700 / 700 4000 / 4000 2 / 2 Balance 200 / 200 -4000 / -3760 1198 / 1198 Lab / Micro Data Result Diagrams: 11/11/20 05:48 11/11/20 05:48 Labs: Laboratory Results - last 24 hr 11/11/20 05:48: WBC 6.3, RBC 2.77 L, Hgb 7.5 L, Hct 23.8 L, MCV 85.9 D, MCH 27.1, MCHC 31.5 L D, RDW Std Deviation 49.5 H, RDW Coeff of Kandis 15.7 H, Plt Count 259, MPV 8.9, Immature Gran % (Auto) 0.300, Neut % (Auto) 77.5 H, Lymph % (Auto) 7.2 L, [place] % (Auto) 12.8 H, Eos % (Auto) 1.9, Baso % (Auto) 0.3, Absolute Neuts (auto) 4.8, Absolute Lymphs (auto) 0.45 L, Nucleated RBC % 0, Differential Comment SCANNED 11/11/20 05:48: Sodium 128 L, Potassium 4.7, Chloride 93 L, Carbon Dioxide 28.0, Anion Gap 7, BUN 35 H, Creatinine 5.68 H, Estim Creat Clear Calc 15.56, Est GFR (MDRD) Af Amer 13 L, Est GFR (MDRD) Non-Af 11 L, BUN/Creatinine Ratio 6.2 L, Glucose 273 H, Calcium 8.1 L 11/11/20 06:41: POC Glucose 271 H 11/11/20 11:51: POC Glucose 297 H 11/11/20 17:14: POC Glucose 433 H 11/11/20 21:59: POC Glucose 353 H Micro: Microbiology 11/05/20 10:30 Interface Orders SARS-CoV-2 Antigen (Rapid) - Final Radiography Diagnostic Testing: Radiology Impression Chest X-Ray 11/09/20 15:50 IMPRESSION: Status post left thoracentesis. No evidence of pneumothorax. Electronically Signed: Que Grey MD at 9:59 EDT , Service support , Chest CTA 11/11/20 06:00 IMPRESSION: No demonstrated pulmonary embolism, aneurysm, leak or arterial dissection. Stable mild symmetric centrilobular emphysema, large left pleural effusion, partially loculated, large compressive basilar parenchymal changes. Stable pleural-based ovoid heterogeneous pleural-based lesion with calcification, post inflammation, post therapy with possible component of calcification or dense agents. Correlation to history recommended. Depending on suspicion level cellular and tissue sampling may be advantageous. Stable cardiomegaly, shift of heart, mediastinum and trachea to the right, bilateral symmetric gynecomastia and mediastinal lymphoid hyperplasia. Electronically Signed: Kacie Fontaine MD at 7:48 EDT , Service support , Rhythm Strip Rhythm Strip: Sinus Rhythm Rate: 64 Ectopy: None Physical Exam Narrative General: Alert and oriented x3. No apparent distress. Heart: S1-S2 RRR. Lungs: Decreased breath sound at bases, L>R Abdomen: Soft, normal bowel sounds. No tenderness on palpation. Extremity: +1 edema of left lower extremity, status post right BKA. No thigh edema. Assessment & Plan Assessment/Plan (1) End stage chronic kidney disease: PLAN: The patient usually dialyzes on TTS schedule. He is followed as outpatient by Dr. Martell. He dialyzes at [facility] in [place]. (2) Anemia: (3) CHF (congestive heart failure): (4) Hypoxia: PLAN: #Patient dialyzes on Monday and Monday. HD tomorrow. Continue to challenge dry weight as patient can tolerate. Patient did dialyze/or IUF , Monday, Monday of last week. #Recurrent pleural effusion despite more frequent dialysis last week. Patient has bilateral pleural effusions with atelectasis left side more than the right side. Status post left-sided thoracentesis. However, pleural effusion quickly reaccumulates. Being evaluated for Pleurx. #Agree with considering pleurodesis since pleural effusion is recurrent. #Patient received 1 dose of Epogen November 06. We will give Epogen with HD; 20,000 units. #Blood pressures acceptable on multiple antihypertensives. #Continue calcium acetate with meals. Can monitor phosphorus levels periodically.
[2020-11-12] VITALS (16 sets, daily range): BP systolic 98–134; BP diastolic 43–62; PULSE 62–81; RESP 12–22; TEMP 36.6–36.9; O2SAT 86–100
[2020-11-12 05:43] LABS: Absolute Lymphocyte Count 0.67 X10^3/uL (0.83-4.51); Basophil# 0.02 X10^3/uL; Basophil% 0.3 % (0-1); Eosinophil# 0.23 X10^3/uL; Eosinophils% 3.4 % (0-5); Hematocrit 22.7 % (40-54); Hemoglobin 7.1 g/dL (13.0-16.5); Lymphocyte # 0.67 X10^3/ul (0.83-4.51); Lymphocyte % 9.8 % (19-41); Mean Corp Hgb Conc 31.3 g/dL (32-36); Mean Corpuscular Hgb 26.7 pg (27.0-32.0); Mean Corpuscular Volume 85.3 fL (80-94); Monocyte# 0.94 X10^3/uL; Monocyte% 13.7 % (0-10); NRBC Flagged by Analyzer 0 % (0-5); Neutrophil # 4.96 X10^3/uL (2.7-7.7); Neutrophil % 72.4 % (47-70); Platelet Count 277 K/mm3 (150-450); RBC Distribution Width CV 15.9 % (11.6-14.6); RBC Distribution Width SD 49.5 fl (35.1-43.9); Red Blood Count 2.66 M/mm3 (4.6-6.2); White Blood Count 6.9 K/mm3 (4.4-11.0)
[2020-11-12 06:28] LABS: Anion Gap 10 (5-15); BUN 46 mg/dL (7-18); BUN/Creat Ratio 6.1 RATIO (10-20); Chloride 91 mmol/L (98-107); Creatinine, Serum 7.54 mg/dL (0.70-1.30); EST Glomerular Filtration Rate 8 mL/min (>60); Est Glom Filt Rate - Afr Amer 10 mL/min (>60); Estimated Creatinine Clearance 11.72 ml/min; Glucose 210 mg/dL (74-106); Potassium 4.8 mmol/L (3.5-5.1); Sodium Level 128 mmol/L (136-145)
[2020-11-12] MEDS: Ipratropium/Albuterol Sulfate 3 ML AMPUL.NEB INHALATION ×2 (07:03→19:06)
--- NOTE | 2020-11-12 07:18 | CASEMGMT ---
PAMELA spoke with Rosina from [facility]. She and the SW from [facility] visited patient and brought him his belongings. She said the visit went well. He allowed them to call a sister about picking up his vehicle. He is in agreement with going to [facility]. SW asked if the ambulance will not take all of his belongings can they assist with getting them to him. She said they will put them in his vehicle that is locked. SW told her SW will let them know. SW also told her he is not getting his Pleurex cath until Monday now. Juli Ladd MSW [place]
[2020-11-12 08:01] LABS: Bedside Glucose 228 mg/dL (70-110)
[2020-11-12] MEDS: Insulin Lispro 100 UNIT/ML INSULN.PEN SC ×3 (10:04→21:27)
[2020-11-12] MEDS: oxyCODONE 5 MG Tablet 10 MG PO ×2 (10:11→19:38)
[2020-11-12] MEDS: LORazepam 0.5 MG Tablet PO ×2 (10:12→19:37)
[2020-11-12 11:35] LABS: Bedside Glucose 319 mg/dL (70-110)
--- NOTE | 2020-11-12 14:35 | PN.HOSP_ITS ---
Documented by User: Noemi French NP, [employer] 11/12/20 14:52 Subjective Subjective Patient seen and examined. Denies worsening shortness of breath. States he is having difficulty getting comfortable in bed. Denies other symptoms or complaints. Objective Data Objective Data Vital Signs: Vital Signs Temp Pulse Resp BP Pulse Ox 98.2 F 70 16 116/55 L 93 11/12/20 13:15 11/12/20 13:15 11/12/20 13:15 11/12/20 13:15 11/12/20 13:15 Oxygen Flow Rate (L/min) [3] 4 Oxygen Flow Rate (L/min) [2] 4 Oxygen Flow Rate (L/min) [1 ( 4 Initial Baseline)] Oxygen Flow Rate (L/min) [ 2 AMBULATING with Oxygen #1] Oxygen Flow Rate (L/min) [At 2 REST with Oxygen] Oxygen Flow Rate (L/min) [At 0 REST on Room Air] Oxygen Flow Rate (L/min) 4 Oxygen Delivery Method [4] Room Air Oxygen Delivery Method [3] Room Air Oxygen Delivery Method [2] Room Air Oxygen Delivery Method [1 ( Room Air Initial Baseline)] Oxygen Delivery Method Nasal Cannula Weight: 193 lb 12.581 oz Body Mass Index (BMI) 28.4 Intake & Output: Intake and Output for Last 24 Hours 11/10/20 11/11/20 11/12/20 23:59 23:59 23:59 Intake Total 1200 / 1440 240 / 240 Output Total 4000 / 4000 2 / 2 Balance -4000 / -3760 1198 / 1438 240 / 240 Lab / Micro Data Result Diagrams: 11/12/20 05:24 11/12/20 05:24 Labs: Laboratory Results - last 24 hr 11/11/20 17:14: POC Glucose 433 H 11/11/20 21:59: POC Glucose 353 H 11/12/20 05:24: WBC 6.9, RBC 2.66 L, Hgb 7.1 L, Hct 22.7 L, MCV 85.3, MCH 26.7 L , MCHC 31.3 L, RDW Std Deviation 49.5 H, RDW Coeff of Kandis 15.9 H, Plt Count 277, MPV 9.0, Immature Gran % (Auto) 0.400, Neut % (Auto) 72.4 H, Lymph % (Auto) 9.8 L, [place] % (Auto) 13.7 H, Eos % (Auto) 3.4, Baso % (Auto) 0.3, Absolute Neuts (auto) 5.0, Absolute Lymphs (auto) 0.67 L, Nucleated RBC % 0 11/12/20 05:24: Sodium 128 L, Potassium 4.8, Chloride 91 L, Carbon Dioxide 27.0, Anion Gap 10, BUN 46 H, Creatinine 7.54 H*, Estim Creat Clear Calc 11.72, Est GFR (MDRD) Af Amer 10 L, Est GFR (MDRD) Non-Af 8 L, BUN/Creatinine Ratio 6.1 L, Glucose 210 H, Calcium 8.0 L 11/12/20 07:57: POC Glucose 228 H 11/12/20 10:00: POC Glucose 319 H Micro: Microbiology 11/05/20 10:30 Interface Orders SARS-CoV-2 Antigen (Rapid) - Final Rhythm Strip Rhythm Strip: Sinus Rhythm Rate: 64 Ectopy: None Physical Exam Const alert, oriented x3 and no apparent distress Orientation / Consciousness: awake, oriented to person, oriented to place and oriented to time HEENT normocephalic and moist oral mucous membranes Eyes PERRL, EOMs intact bilaterally and conjunctivae normal Neck no lymphadenopathy Resp clear to auscultation bilaterally Auscultation: diminished lung sounds Cardio regular rate, regular rhythm and no murmurs Peripheral Pulses: pulses 2+ throughout GI normal to inspection, nondistended, normoactive bowel sounds, non-tender and non-distended Extremity normal to inspection Extremity Narrative: Right lower extremity BKA Skin no rashes or lesions noted Lesions: no lesions Rashes: no rashes Trauma: no lacerations or abrasions Neuro CN's II-XII intact bilaterally, no focal motor deficits, no sensory deficits noted and deep tendon reflexes 2+ bilaterally Psych mental status grossly normal and affect normal Assessment & Plan Assessment/Plan (1) Acute and chronic respiratory failure with hypoxia: PLAN: 1. Acute hypoxic respiratory failure secondary to acute on chronic heart failure with preserved ejection fraction with recurrent large pleural effusion, complicated by ESRD-continue supplemental oxygen to maintain O2 at above 90%. 2. Acute on chronic heart heart failure with preserved ejection fraction- echocardiogram 11/09/2020 demonstrated an EF of 60%, stage II diastolic dysfunction, moderate LVH, biatrial enlargement. Continue Lasix, dialysis. 3. Recurrent large pleural effusion, transudate-surgery consulted. Plan for Pleurx catheter placement 11/13/2020. 4. End-stage renal disease on hemodialysis-nephrology consulted. 5. Hypertension-stable, continue current regimen. 6. Hyperlipidemia-continue statin. 7. Type 2 diabetes [id number] with sliding scale insulin. Noncompliant with insulin regimen. 8. Anemia of chronic disease-trend CBC. 9. GERD-continue PPI. 10. Debility/history of right BKA-PT/OT. DVT prophylaxis-Lovenox subcu Discharge plan: SNF pending Pleurx catheter placement, insurance approval. This patient was seen by JANETH Jacobs under the supervision of Dr. Moore. Documented by User: Dr. Anabelle Moore DO 11/12/20 15:55 Subjective Subjective Patient was seen in conjunction with Noemi French NP. The following is representation my independent history and physical examination. Please see below for any addendum below. Patient is not currently complaining of any left-sided chest pain today. We again discussed his overall plan for care. Objective Data Lab / Micro Data Result Diagrams: 11/12/20 05:24 11/12/20 05:24 Physical Exam Const alert, oriented x3 and no apparent distress Constitutional Narrative: Middle-aged -[place] male sitting up in a chair eating breakfast on room air General Appearance: cooperative Orientation / Consciousness: awake, oriented to person, oriented to place and oriented to time Exam Limitations: no limitations HEENT normocephalic, head/scalp atraumatic, hearing grossly normal bilaterally, moist oral mucous membranes and oropharynx normal Head and Scalp: normocephalic Resp no retractions, no use of accessory muscles and clear to auscultation bilaterally Resp Narrative: Diminished left base Auscultation: diminished lung sounds; Negative for crackles, rales, rhonchi or wheezes Cardio regular rate, regular rhythm, S1 normal heart sound, S2 normal heart sound, no murmurs, no rub, no gallops, no clicks and no JVD Peripheral Pulses: pulses 2+ throughout GI normal to inspection, nondistended, normoactive bowel sounds, soft to palpation, non-tender and non-distended GI Narrative: mild abdominal distension with positive fluid thrill. Extremity normal to inspection, full ROM and no clubbing, cyanosis or edema Extremity Narrative: Right lower extremity BKA Skin no rashes or lesions noted, no wounds, skin turgor normal, no jaundice, no petechiae and no mottling Lesions: no lesions Rashes: no rashes Trauma: no lacerations or abrasions Neuro oriented x3, CN's II-XII intact bilaterally, moves all extremities, no focal motor deficits, no sensory deficits noted and deep tendon reflexes 2+ bilaterally Sensorium / Orientation: awake, alert, oriented to person, oriented to place and oriented to time Speech: speech normal Psych mental status grossly normal Mood & Affect: anxious Assessment & Plan Assessment/Plan (1) Acute and chronic respiratory failure with hypoxia: (2) Recurrent pleural effusion on left: PLAN: Assessment: Acute hypoxic respiratory failure Acute on chronic exacerbation of diastolic CHF Recurrent large pleural effusion-transudative End-stage renal disease-HD dependent Hypertension DM-2 Hyperlipidemia Right BKA Chronic anemia GERD Debility Plan: -Discussed case with nephrology -They feel that he is euvolemic intravascularly an extra dialysis will likely not be beneficial -Patient follows with Dr. Hutchinson in [place] -continue p.o. Lasix 80 mg twice daily -left thoracentesis 11/09/2020 with 400 cc removal -A.m. CT from 11/11/2020 shows recurrence of a left pleural effusion that is large and partially loculated with compressive atelectasis and a pleural-based stable ovoid heterogeneous lesion with calcification -Surgery has been consulted for the placement of a Pleurx catheter--> this will be scheduled to be done on 11/13/2020 -Continue fluid restriction/salt restriction -Dialysis today -Continue blood pressure medications as ordered--> blood pressure overall remains improved -Echocardiogram was performed on 11/09/2020 and shows an EF of 60% with moderate concentric LVH and stage II diastolic dysfunction, biatrial enlargement -We will increase basal insulin to 40 units daily continue to evaluate blood sugars -Probable discharge tomorrow after Pleurx catheter placement if pre-CERT is obtained Charges/Coding Visit Charges Inpatient E&M: 45010 Subs Hosp L2
[2020-11-12] MEDS: LORazepam 1 MG Tablet PO (14:41)
--- NOTE | 2020-11-12 15:30 | DIALYSIS ---
Hemodialysis x 4hrs completed. -4200ml UF. Stable t/o. Hemostasis obtained, gauze/tape applied. pt sitting at edge of bed eating meal. Report was given to Sandra GÓMEZ. See HD flowsheet for details.
[2020-11-12] MEDS: Folic Acid 1 MG Tablet PO (16:06)
[2020-11-12] MEDS: Pantoprazole Sodium 20 MG Tablet PO ×2 (16:06→21:26)
[2020-11-12] MEDS: Vitamin B Comp W-C Capsule 1 CAP PO (16:06)
[2020-11-12] MEDS: cloNIDine HCl 0.1 MG Tablet 0.3 MG PO (16:06)
[2020-11-12] MEDS: Isosorbide Mononitrate 30 MG Tablet PO (16:06)
[2020-11-12] MEDS: Aspirin 81 MG TAB.CHEW PO (16:06)
[2020-11-12] MEDS: hydrALAZINE 50 MG Tablet 100 MG PO (16:06)
[2020-11-12] MEDS: Minoxidil 2.5 MG Tablet PO (16:06)
[2020-11-12] MEDS: Cholecalciferol (VIT D3) 25 MCG TABLET (1,000 UNITS) PO (16:06)
[2020-11-12] MEDS: amLODIPine 10 MG Tablet PO (16:07)
[2020-11-12] MEDS: Furosemide 80 MG Tablet PO (17:54)
[2020-11-12] MEDS: Carvedilol 25 MG Tablet PO ×2 (17:54→17:55)
[2020-11-12] MEDS: Calcium Acetate 667 MG Capsule PO (17:54)
[2020-11-12 18:01] LABS: Bedside Glucose 279 mg/dL (70-110)
--- NOTE | 2020-11-12 20:06 | PCM.PN.REN ---
Subjective Subjective Following for ESRD. The patient is anxious about tomorrow's procedure. He was dialyzed earlier today, and he tolerated dialysis well. We were able to remove 4.2 L without hypotension. The patient still feels shortness of breath with activity. There is no chest pain, nausea, or vomiting. He has edema of the left lower extremity. Objective Data Objective Data Vital Signs: Vital Signs Temp Pulse Resp BP Pulse Ox 98.2 F 80 20 H 134/54 H 86 11/12/20 15:45 11/12/20 19:06 11/12/20 19:06 11/12/20 16:06 11/12/20 19:06 Oxygen Flow Rate (L/min) [3] 4 Oxygen Flow Rate (L/min) [2] 4 Oxygen Flow Rate (L/min) [1 ( 4 Initial Baseline)] Oxygen Flow Rate (L/min) [ 2 AMBULATING with Oxygen #1] Oxygen Flow Rate (L/min) [At 2 REST with Oxygen] Oxygen Flow Rate (L/min) [At 0 REST on Room Air] Oxygen Flow Rate (L/min) 4 Oxygen Delivery Method [4] Room Air Oxygen Delivery Method [3] Room Air Oxygen Delivery Method [2] Room Air Oxygen Delivery Method [1 ( Room Air Initial Baseline)] Oxygen Delivery Method Room Air Weight: 87.9 kg Body Mass Index (BMI) 28.4 Intake & Output: Intake and Output for Last 24 Hours 11/10/20 11/11/20 11/12/20 23:59 23:59 23:59 Intake Total 1200 / 1440 900 / 900 Output Total 4000 / 4000 2 / 2 4200 / 4200 Balance -4000 / -3760 1198 / 1438 -3300 / -3300 Lab / Micro Data Result Diagrams: 11/12/20 05:24 11/12/20 05:24 Labs: Laboratory Results - last 24 hr 11/11/20 21:59: POC Glucose 353 H 11/12/20 05:24: WBC 6.9, RBC 2.66 L, Hgb 7.1 L, Hct 22.7 L, MCV 85.3, MCH 26.7 L, MCHC 31.3 L, RDW Std Deviation 49.5 H, RDW Coeff of Kandis 15.9 H, Plt Count 277, MPV 9.0, Immature Gran % (Auto) 0.400, Neut % (Auto) 72.4 H, Lymph % (Auto) 9.8 L, [place] % (Auto) 13.7 H, Eos % (Auto) 3.4, Baso % (Auto) 0.3, Absolute Neuts (auto) 5.0, Absolute Lymphs (auto) 0.67 L, Nucleated RBC % 0 11/12/20 05:24: Sodium 128 L, Potassium 4.8, Chloride 91 L, Carbon Dioxide 27.0, Anion Gap 10, BUN 46 H, Creatinine 7.54 H*, Estim Creat Clear Calc 11.72, Est GFR (MDRD) Af Amer 10 L, Est GFR (MDRD) Non-Af 8 L, BUN/Creatinine Ratio 6.1 L, Glucose 210 H, Calcium 8.0 L 11/12/20 07:57: POC Glucose 228 H 11/12/20 10:00: POC Glucose 319 H 11/12/20 17:51: POC Glucose 279 H Micro: Microbiology 11/05/20 10:30 Interface Orders SARS-CoV-2 Antigen (Rapid) - Final Rhythm Strip Rhythm Strip: Sinus Rhythm Rate: 64 Ectopy: None Physical Exam Narrative General: Alert and oriented x3. No apparent distress. Heart: S1-S2 RRR. Lungs: Decreased breath sound at bases, L>R Abdomen: Soft, normal bowel sounds. No tenderness on palpation. Extremity: +2 edema of left lower extremity, status post right BKA. No thigh edema. Assessment & Plan Assessment/Plan (1) End stage chronic kidney disease: PLAN: The patient usually dialyzes on TTS schedule. He is followed as outpatient by Dr. Martell. He dialyzes at [facility]. (2) Anemia: (3) CHF (congestive heart failure): (4) Hypoxia: PLAN: #Patient dialyzes on Monday and Monday. HD today. I supervised the dialysis procedure: 4 hours treatment with F1 60 dialyzer, blood flow 400, dialysate flow 600. We are able to take off 4.2 L of fluid today without significant drop in blood pressure. #Continue to challenge dry weight as patient can tolerate. Patient did dialyze/or IUF , Monday, Monday of last week. #Recurrent pleural effusion despite more frequent dialysis last week. Patient has bilateral pleural effusions with atelectasis left side more than the right side. Status post left-sided thoracentesis. However, pleural effusion quickly reaccumulates. Pleurx catheter to be placed tomorrow. #Blood pressures acceptable on current antihypertensives. #Continue calcium acetate with meals. Can monitor phosphorus levels periodically.
[2020-11-12] MEDS: Atorvastatin Calcium 80 MG Tablet PO (21:26)
[2020-11-12] MEDS: traZODone 50 MG Tablet PO (21:27)
[2020-11-12] MEDS: MELATONIN 10 MG TABLET 5 MG PO (21:27)
[2020-11-12] MEDS: Doxazosin 4 MG Tablet PO (21:27)
[2020-11-12 21:46] LABS: Bedside Glucose 377 mg/dL (70-110)
[2020-11-13] VITALS (26 sets, daily range): BP systolic 121–159; BP diastolic 53–69; PULSE 67–90; RESP 16–20; TEMP 36–37.1; O2SAT 4–100
[2020-11-13 06:26] LABS: Bedside Glucose 415 mg/dL (70-110)
[2020-11-13] MEDS: Insulin Lispro 100 UNIT/ML INSULN.PEN 15 UNIT SC (06:31)
[2020-11-13 06:50] LABS: Absolute Lymphocyte Count 0.51 X10^3/uL (0.83-4.51); Absolute Neutrophil Count 5.2 X10^3/uL (2.0-7.7); Basophil# 0.03 X10^3/uL; Basophil% 0.4 % (0-1); Eosinophil# 0.15 X10^3/uL; Eosinophils% 2.2 % (0-5); Hematocrit 20.7 % (40-54); Hemoglobin 6.5 g/dL (13.0-16.5); Lymphocyte # 0.51 X10^3/ul (0.83-4.51); Lymphocyte % 7.4 % (19-41); Mean Corp Hgb Conc 31.4 g/dL (32-36); Mean Corpuscular Hgb 26.5 pg (27.0-32.0); Mean Corpuscular Volume 84.5 fL (80-94); Mean Platelet Vol. 9.3 fl (6.2-12.0); Monocyte# 0.98 X10^3/uL; Monocyte% 14.3 % (0-10); NRBC Flagged by Analyzer 0 % (0-5); Neutrophil # 5.16 X10^3/uL (2.7-7.7); Neutrophil % 75.3 % (47-70); POSITIVE DIFFERENTIAL YES; Platelet Count 320 K/mm3 (150-450); RBC Distribution Width CV 15.8 % (11.6-14.6); RBC Distribution Width SD 48.1 fl (35.1-43.9); Red Blood Count 2.45 M/mm3 (4.6-6.2); White Blood Count 6.9 K/mm3 (4.4-11.0)
[2020-11-13 06:57] LABS: Differential Indicated SCAN CRITERIA MET
[2020-11-13 07:00] LABS: International Normalized Ratio 1.3; Prothrombin Time (Protime)PT. 15.1 SECONDS (11.7-14.9)
[2020-11-13] MEDS: Ipratropium/Albuterol Sulfate 3 ML AMPUL.NEB INHALATION ×2 (07:19→18:43)
[2020-11-13 07:23] LABS: Anion Gap 7 (5-15); BUN 30 mg/dL (7-18); BUN/Creat Ratio 5.2 RATIO (10-20); Calcium,Total 7.9 mg/dL (8.5-10.1); Chloride 92 mmol/L (98-107); Creatinine, Serum 5.73 mg/dL (0.70-1.30); EST Glomerular Filtration Rate 11 mL/min (>60); Est Glom Filt Rate - Afr Amer 13 mL/min (>60); Estimated Creatinine Clearance 15.42 ml/min; Glucose 444 mg/dL (74-106); Potassium 4.5 mmol/L (3.5-5.1); Sodium Level 126 mmol/L (136-145)
[2020-11-13 07:39] LABS: Hypochromasia 1+
[2020-11-13] MEDS: Acetaminophen 325 MG Tablet PO ×3 (09:26→23:13)
[2020-11-13] MEDS: oxyCODONE 5 MG Tablet 10 MG PO ×3 (09:26→23:14)
[2020-11-13] MEDS: LORazepam 0.5 MG Tablet PO ×2 (09:27→21:49)
--- NOTE | 2020-11-13 09:38 | CASEMGMT ---
PAMELA called Irina with [facility]. PAMELA received her voice mail which is full. PAMELA will continue to try and reach Irina as patient will be ready for d/c today and PAMELA needs to know if she has received pre-cert. Juli Ladd MSW [place]
--- NOTE | 2020-11-13 11:03 | CASEMGMT ---
PAMELA received a call from Charmaine with [facility]. She said they did get authorization on patient. She was wondering when he is ready. PAMELA told her today vs tomorrow, but likely today. PAMELA told her he is getting his pleurex catheter today and PAMELA will send her that information once done. She asked if PAMELA could fax dialysis run sheets and more physician notes. PAMELA faxed this information to her. PAMELA will be in touch. Plan: [facility] in [place]. Juli Ladd REPAIR [employer] [place]
--- NOTE | 2020-11-13 11:09 | PCM.PN.REN ---
Subjective Subjective Sitting in chair, denies any complaints. Feels somewhat anxious about today's procedure. States he tolerated dialysis yesterday with no cramping. Objective Data Objective Data Vital Signs: Vital Signs Temp Pulse Resp BP Pulse Ox 98.2 F 90 18 121/60 H 95 11/13/20 09:06 11/13/20 09:10 11/13/20 09:06 11/13/20 09:06 11/13/20 09:06 Oxygen Flow Rate (L/min) [3] 4 Oxygen Flow Rate (L/min) [2] 4 Oxygen Flow Rate (L/min) [1 ( 4 Initial Baseline)] Oxygen Flow Rate (L/min) [ 2 AMBULATING with Oxygen #1] Oxygen Flow Rate (L/min) [At 2 REST with Oxygen] Oxygen Flow Rate (L/min) [At 0 REST on Room Air] Oxygen Flow Rate (L/min) 5 Oxygen Delivery Method [4] Room Air Oxygen Delivery Method [3] Room Air Oxygen Delivery Method [2] Room Air Oxygen Delivery Method [1 ( Room Air Initial Baseline)] Oxygen Delivery Method Nasal Cannula Weight: 87.9 kg Body Mass Index (BMI) 28.4 Intake & Output: Intake and Output for Last 24 Hours 11/11/20 11/12/20 11/13/20 23:59 23:59 23:59 Intake Total 1200 / 1440 900 / 1050 150 / 150 Output Total 2 / 2 4200 / 4200 Balance 1198 / 1438 -3300 / -3150 150 / 150 Lab / Micro Data Result Diagrams: 11/13/20 06:00 11/13/20 06:00 Labs: Laboratory Results - last 24 hr 11/12/20 10:00: POC Glucose 319 H 11/12/20 17:51: POC Glucose 279 H 11/12/20 21:25: POC Glucose 377 H 11/13/20 06:00: WBC 6.9, RBC 2.45 L, Hgb 6.5 L, Hct 20.7 L, MCV 84.5, MCH 26.5 L, MCHC 31.4 L, RDW Std Deviation 48.1 H, RDW Coeff of Kandis 15.8 H, Plt Count 320, MPV 9.3, Immature Gran % (Auto) 0.400, Neut % (Auto) 75.3 H, Lymph % (Auto) 7.4 L, [place] % (Auto) 14.3 H, Eos % (Auto) 2.2, Baso % (Auto) 0.4, Absolute Neuts (auto) 5.2, Absolute Lymphs (auto) 0.51 L, Nucleated RBC % 0, Hypochromasia 1+ 11/13/20 06:00: PT 15.1 H, INR 1.3 11/13/20 06:00: Sodium 126 L, Potassium 4.5, Chloride 92 L, Carbon Dioxide 27.0, Anion Gap 7, BUN 30 H, Creatinine 5.73 H, Estim Creat Clear Calc 15.42, Est GFR (MDRD) Af Amer 13 L, Est GFR (MDRD) Non-Af 11 L, BUN/Creatinine Ratio 5.2 L, Glucose 444 H, Calcium 7.9 L 11/13/20 06:19: POC Glucose 415 H Micro: Microbiology 11/05/20 10:30 Interface Orders SARS-CoV-2 Antigen (Rapid) - Final Rhythm Strip Rhythm Strip: Sinus Rhythm Rate: 64 Ectopy: None Physical Exam Narrative General: Alert and oriented x3. No apparent distress. Heart: S1-S2 RRR. Lungs: Decreased breath sound at bases, L>R Abdomen: Soft, normal bowel sounds. No tenderness on palpation. Extremity: +1-2 edema of left lower extremity, status post right BKA. No thigh edema. AV graft left upper arm positive thrill and bruit Assessment & Plan Assessment/Plan (1) End stage chronic kidney disease: PLAN: The patient usually dialyzes on TTS schedule. He is followed as outpatient by Dr. Martell. He dialyzes at [facility]. (2) Anemia: (3) CHF (congestive heart failure): (4) Hypoxia: PLAN: #Patient dialyzes on Monday and Monday outpatient. Patient tolerated dialysis 11/12 over 4 hours with 4.2 L of fluid removed. Weight 87.9 kg as of 11/12. 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 #Continue to challenge weight as patient can tolerate. Dry weight not established at this time. Patient did dialyze/or IUF , Monday, Monday of last week. Weight on admission 98 kg #Recurrent pleural effusion despite more frequent dialysis last week. Patient has bilateral pleural effusions with atelectasis left side more than the right side. Status post left-sided thoracentesis. However, pleural effusion quickly reaccumulates. Pleurx catheter to be placed today. #Blood pressures acceptable on current antihypertensives. Recommend to hold blood pressure meds mornings of dialysis #Continue calcium acetate with meals. Can monitor phosphorus levels periodically. # Hemoblobin 6.5 today, will continue RONNY with HD. Would recommend PRBC which can be given during HD tomorrow. Discussed with nurse discharge plans and concern for hemoglobin of 6.5 today. Hemoglobin was 7.9 on admission, peaked to 8.1 on 11/10. Patient does get RONNY with HD but may need PRBC if okay with primary team. If patient is going to [facility]CF with dialysis, likely dialysis days will be Monday. Patient may benefit from dialyzing tomorrow with PRBC in the hospital and next dialysis will be Monday if discharged from the hospital over the weekend.
--- NOTE | 2020-11-13 11:37 | TREXTCAR_ITS ---
Documented by User: Noemi French NP, [facility] 11/14/20 11:07 Diet 11/05/20 13:00 Diet: Cardiac: Calorie-Controlled Food consistency:: Regular Liquid Consistency:: Regular/Thin Fluid restriction:: 1500 mL How many daily calories?: 2200 calorie Routine Orders/Code Status Enema Type: Fleetz Enema Frequency: Daily PRN Suppository Type: Dulcolax 10mg Suppository Frequency: Daily PRN O2 Liters per Minute: 2-6 O2 Frequency: Continuous Keep PO Greater than or Equal to (%): 90 Routine Lab Work: - (Weekly CBC, BMP) Code Status: Full Code Wound(s) Rt stump: Wound Type: scabbed sore Suggestions for Active Care Change Position every (hours): 2 Times a day to sit in chair: 3 Therapies Extremity Affected:: Right Lower (right BKA) Physical Therapy: Eval and Treat Occupational Therapy: Eval and Treat Allergies/Procedures Done in Hospital Allergies hydrocodone Allergy (Verified 11/05/20 09:38) PT UNSURE OF REACTION metoprolol Allergy (Verified 11/05/20 09:38) PT UNSURE OF REACTION Procedures: 2-D Echocardiogram, Blood transfusion, Dialysis and - (Pleurx catheter placement) Type of Care/Length of Stay Estimated LOS: Convalescent Care Less Than 30 days Type of Care Needed: Skilled Rehab Potential: Fair Prognosis: Fair Additional Orders/Day of Discharge H&P will serve as current which was dated: 11/05/20 Day of Discharge: 11/14/20 Dietary and Speech Recommendations Dietitian Recommendations/Changes: Continue cardiac, 2199 calorie controlled diet. Daily wts. Discharge Plan Admission Admit Date/Time: 11/05/20 12:24 Primary Reason for Your Visit: Acute hypoxic respiratory failure secondary to acute on chronic CHF Attending Provider: Anabelle Moore Primary Care Provider: Judith Dockery Consulting Providers: Manjit Milligan ; Gurvinder Vinson Instructions Patient Instructions: Thoracentesis Dc Additional Instructions / Restrictions: Left Pleurx catheter placed 11/13/2020. Hooked to suction for drainage 2 times per week and as needed for shortness of breath. Discharge Orders/Prescriptions Prescriptions: New Lantus Solostar U-100 Insulin 100 unit/mL (3 mL) Insulin Pen 40 units subcut DAILY Qty: 0 RF: 0 oxycodone-acetaminophen [Endocet] 5-325 mg tablet 1 - 2 tab PO Q6H PRN (Reason: pain) 5 Days Qty: 30 RF: 0 Continued amlodipine 10 mg Tablet 10 mg PO DAILY RF: 0 aspirin 81 mg Tablet 81 mg PO DAILY RF: 0 Afrin (oxymetazoline) 0.05 % Mist 2 spray INTRANASAL Q12H PRN (Reason: Congestion) RF: 0 carvedilol [Coreg] 25 mg Tablet 25 mg PO BID RF: 0 polyethylene glycol 3350 17 gram Powder In Packet 17 g PO DAILY RF: 0 clonidine HCl 0.3 mg Tablet 0.3 mg PO TID RF: 0 calcium acetate(phosphat bind) 667 mg Tablet 667 mg PO BID RF: 0 torsemide 100 mg Tablet 100 mg PO DAILY RF: 0 doxazosin [Cardura] 4 mg Tablet 4 mg PO QHS RF: 0 folic acid 1 mg Tablet 1 mg PO DAILY RF: 0 insulin lispro [Humalog KwikPen Insulin] 100 unit/mL Insulin Pen 0 unit SUBCUT TID RF: 0 hydralazine 100 mg Tablet 100 mg PO TID RF: 0 isosorbide mononitrate 30 mg Tablet Extended Release 24 Hr 30 mg PO DAILY RF: 0 atorvastatin [Lipitor] 80 mg Tablet 80 mg PO DAILY RF: 0 trazodone 50 mg Tablet 50 mg PO QHS RF: 0 omeprazole 20 mg Capsule,Delayed Release(Dr/Ec) 20 mg PO BID RF: 0 B complex-vitamin C-folic acid 0.8 mg Tablet 1 tab PO DAILY RF: 0 cholecalciferol (vitamin D3) [Vitamin D3] 25 mcg (1,000 unit) Capsule 25 mcg PO DAILY RF: 0 melatonin 5 mg Tablet 5 mg PO QHS RF: 0 lorazepam [Ativan] 0.5 mg Tablet 0.5 mg PO TID PRN (Reason: Anxiety) Qty: 6 RF: 0 oxycodone-acetaminophen [Percocet] 10-325 mg Tablet 1 tab PO Q8H PRN (Reason: pain) 2 Days Qty: 5 RF: 0 Discontinued Lantus Solostar U-100 Insulin 100 unit/mL (3 mL) Insulin Pen 18 unit SUBCUT DAILY RF: 0 Referrals / Follow Up: [facility], Thoracic surgery [Other] - See Referral Note (Needs referral/follow-up with thoracic surgery at [facility] who completed prior mechanical pleurodesis via right sided thoracotomy for evaluation of the left-sided pleurodesis. Obtain appointment LILA.) [facility] [Other] - See Referral Note (As scheduled for outpatient follow-up and dialysis) Judith Dockery MD [Primary Care Provider] - In 1 Week Redd Crouch MD [NON-STAFF] - 11/19/20 11:30 am (Consult outpatient for pleurodesis for left side recurrent pleural effusions s/p left pleurex catheter placement) Care Physician,No Primary [NON-STAFF] - In 1 Week Disposition Disposition (needs filled in before D/C Order can be placed): Custodial Facility Documented by User: Dr. Anabelle Moore DO 11/14/20 16:32 Allergies/Procedures Done in Hospital Allergies hydrocodone Allergy (Verified 11/05/20 09:38) PT UNSURE OF REACTION metoprolol Allergy (Verified 11/05/20 09:38) PT UNSURE OF REACTION Discharge Plan Admission Admit Date/Time: 11/05/20 12:24 Primary Reason for Your Visit: Acute hypoxic respiratory failure secondary to acute on chronic CHF Attending Provider: Anabelle Moore Primary Care Provider: Judith Dockery Consulting Providers: Manjit Milligan ; Gurvinder Vinson Instructions Patient Instructions: Thoracentesis Dc Additional Instructions / Restrictions: Left Pleurx catheter placed 11/13/2020. Hooked to suction for drainage 2 times per week and as needed for shortness of breath. Discharge Orders/Prescriptions Prescriptions: New Lantus Solostar U-100 Insulin 100 unit/mL (3 mL) Insulin Pen 40 units subcut DAILY Qty: 0 RF: 0 oxycodone-acetaminophen [Endocet] 5-325 mg tablet 1 - 2 tab PO Q6H PRN (Reason: pain) 5 Days Qty: 30 RF: 0 Continued amlodipine 10 mg Tablet 10 mg PO DAILY RF: 0 aspirin 81 mg Tablet 81 mg PO DAILY RF: 0 Afrin (oxymetazoline) 0.05 % Mist 2 spray INTRANASAL Q12H PRN (Reason: Congestion) RF: 0 carvedilol [Coreg] 25 mg Tablet 25 mg PO BID RF: 0 polyethylene glycol 3350 17 gram Powder In Packet 17 g PO DAILY RF: 0 clonidine HCl 0.3 mg Tablet 0.3 mg PO TID RF: 0 calcium acetate(phosphat bind) 667 mg Tablet 667 mg PO BID RF: 0 torsemide 100 mg Tablet 100 mg PO DAILY RF: 0 doxazosin [Cardura] 4 mg Tablet 4 mg PO QHS RF: 0 folic acid 1 mg Tablet 1 mg PO DAILY RF: 0 insulin lispro [Humalog KwikPen Insulin] 100 unit/mL Insulin Pen 0 unit SUBCUT TID RF: 0 hydralazine 100 mg Tablet 100 mg PO TID RF: 0 isosorbide mononitrate 30 mg Tablet Extended Release 24 Hr 30 mg PO DAILY RF: 0 atorvastatin [Lipitor] 80 mg Tablet 80 mg PO DAILY RF: 0 trazodone 50 mg Tablet 50 mg PO QHS RF: 0 omeprazole 20 mg Capsule,Delayed Release(Dr/Ec) 20 mg PO BID RF: 0 B complex-vitamin C-folic acid 0.8 mg Tablet 1 tab PO DAILY RF: 0 cholecalciferol (vitamin D3) [Vitamin D3] 25 mcg (1,000 unit) Capsule 25 mcg PO DAILY RF: 0 melatonin 5 mg Tablet 5 mg PO QHS RF: 0 lorazepam [Ativan] 0.5 mg Tablet 0.5 mg PO TID PRN (Reason: Anxiety) Qty: 6 RF: 0 oxycodone-acetaminophen [Percocet] 10-325 mg Tablet 1 tab PO Q8H PRN (Reason: pain) 2 Days Qty: 5 RF: 0 Discontinued Lantus Solostar U-100 Insulin 100 unit/mL (3 mL) Insulin Pen 18 unit SUBCUT DAILY RF: 0 Referrals / Follow Up: [facility], Thoracic surgery [Other] - See Referral Note (Needs referral/follow-up with thoracic surgery at [facility] who completed prior mechanical pleurodesis via right sided thoracotomy for evaluation of the left-sided pleurodesis. Obtain appointment LILA.) [facility] [Other] - See Referral Note (As scheduled for outpatient follow-up and dialysis) Judith Dockery MD [Primary Care Provider] - In 1 Week Redd Crouch MD [NON-STAFF] - 11/19/20 11:30 am (Consult outpatient for pleurodesis for left side recurrent pleural effusions s/p left pleurex catheter placement) Care Physician,No Primary [NON-STAFF] - In 1 Week Disposition Disposition (needs filled in before D/C Order can be placed): Custodial Facility
[2020-11-13] MEDS: Insulin Lispro 100 UNIT/ML INSULN.PEN SC ×3 (11:47→22:00)
--- NOTE | 2020-11-13 12:23 | PCM.DC.SUM ---
Documented by User: Noemi French NP, WEATHERIZATION AND HOUSING INSPECTOR-C 11/14/20 11:15 Providers Date of Admission: 11/05/20 Date of Discharge: 11/14/20 Primary Care Physician: Dr. Judith Dockery MD Consultations 11/05/20 13:32 Consult: Nephrology Routine Consulting Provider: Gurvinder Vinson Reason for Consult: ESRD, needs dialysis EMERGENT Consult: No MD Notified: Yes Date Notified: 11/05/20 Time Notified: 13:32 Method of Notification: Verbal 11/11/20 11:01 Consult: General Surgery Routine Consulting Provider: Manjit Milligan Reason for Consult: Pleurex catheter insertion for recurrent pleural effuions. EMERGENT Consult: No MD Notified: Yes Date Notified: 11/11/20 Time Notified: 11:25 Method of Notification: Text Reason For Visit: CHF, PLEURAL EFFUSIONS, ESRD DIALYSIS, IDDM Medications at Discharge Home Medications Afrin (oxymetazoline) 2 spray INTRANASAL Q12H PRN 11/05/20 B complex-vitamin C-folic acid 1 tab PO DAILY 11/05/20 amlodipine 10 mg PO DAILY 11/05/20 aspirin 81 mg PO DAILY 11/05/20 atorvastatin [Lipitor] 80 mg PO DAILY 11/05/20 calcium acetate(phosphat bind) 667 mg PO BID 11/05/20 carvedilol [Coreg] 25 mg PO BID 11/05/20 cholecalciferol (vitamin D3) [Vitamin D3] 25 mcg PO DAILY 11/05/20 clonidine HCl 0.3 mg PO TID 11/05/20 doxazosin [Cardura] 4 mg PO QHS 11/05/20 folic acid 1 mg PO DAILY 11/05/20 hydralazine 100 mg PO TID 11/05/20 insulin lispro [Humalog KwikPen Insulin] 0 unit SUBCUT TID 11/05/20 isosorbide mononitrate 30 mg PO DAILY 11/05/20 melatonin 5 mg PO QHS 11/05/20 omeprazole 20 mg PO BID 11/05/20 polyethylene glycol 3350 17 g PO DAILY 11/05/20 torsemide 100 mg PO DAILY 11/05/20 trazodone 50 mg PO QHS 11/05/20 insulin glargine [Lantus Solostar U-100 Insulin] 40 units SUBCUT DAILY #0 ml 11/13/20 lorazepam [Ativan] 0.5 mg PO TID PRN #6 tab 11/13/20 oxycodone-acetaminophen [Percocet] 1 tab PO Q8H PRN 2 Days #5 tab 11/13/20 oxycodone-acetaminophen [Endocet] 1 - 2 tab PO Q6H PRN 5 Days #30 tab 11/14/20 Hospital Course Operations None Procedures 2-D Echocardiogram, Dialysis and - (Pleurx catheter placement) Summary of Care Provided Minutes Spent on Discharge: 40 Hospital Course: Patient is a 60-year-old male admitted 11/05/2020 due to shortness of breath. 1. Acute hypoxic respiratory failure secondary to acute on chronic heart failure with preserved ejection fraction with recurrent large pleural effusion, complicated by ESRD-continue supplemental oxygen to maintain O2 at above 90%. 2. Acute on chronic heart heart failure with preserved ejection fraction-echocardiogram 11/09/2020 demonstrated an EF of 60%, stage II diastolic dysfunction, moderate LVH, biatrial enlargement. Continue home torsemide regimen, dialysis. Patient has upcoming follow-up with cardiology. 3. Recurrent large pleural effusion, transudate-general surgery consulted. Pleurx catheter placement 11/13/2020. Patient will need follow-up with [facility] thoracic surgery for evaluation for left-sided pleurodesis. Call for follow-up at discharge. Hook Pleurx catheter to suction twice per week and also as needed for increased shortness of breath. 4. End-stage renal disease on hemodialysis-continue outpatient follow-up with nephrology/dialysis. 5. Hypertension-stable, continue current regimen. 6. Hyperlipidemia-continue statin. 7. Type 2 diabetes mellitus- Noncompliant with insulin regimen. Insulin regimen adjusted. Continue Accu-Cheks at [facility]. 8. Acute on chronic anemia of chronic disease- 1 unit PRBC during admission. Patient received Retacrit x1 per nephrology. CBC weekly at [facility]. 9. GERD-continue PPI. 10. Debility/history of right BKA-PT/OT. SNF at discharge. Physical Exam Const alert, oriented x3 and no apparent distress Orientation / Consciousness: awake, oriented to person, oriented to place and oriented to time HEENT normocephalic and moist oral mucous membranes Eyes PERRL, EOMs intact bilaterally and conjunctivae normal Neck no lymphadenopathy Resp clear to auscultation bilaterally Auscultation: diminished lung sounds Cardio regular rate, regular rhythm and no murmurs Peripheral Pulses: pulses 2+ throughout GI normal to inspection, nondistended, normoactive bowel sounds, non-tender and non-distended Extremity normal to inspection Extremity Narrative: Right lower extremity BKA Skin no rashes or lesions noted Lesions: no lesions Rashes: no rashes Trauma: no lacerations or abrasions Neuro CN's II-XII intact bilaterally, no focal motor deficits, no sensory deficits noted and deep tendon reflexes 2+ bilaterally Psych mental status grossly normal and affect normal Patient seen and examined prior to discharge. Physical assessment as noted above. Patient is stable for discharge with follow up recommendations as noted above. This patient was seen by JANETH Jacobs under the supervision of Dr. Moore. Weight / BMI Weight Weight: 193 lb 12.581 oz Body Mass Index (BMI) 28.4 ABG / Lab / Microbiology Data Result Diagrams: 11/14/20 06:20 11/14/20 06:20 Laboratory: Laboratory Results - last 24 hr 11/12/20 17:51: POC Glucose 279 H 11/12/20 21:25: POC Glucose 377 H 11/13/20 06:00: WBC 6.9, RBC 2.45 L, Hgb 6.5 L, Hct 20.7 L, MCV 84.5, MCH 26.5 L, MCHC 31.4 L, RDW Std Deviation 48.1 H, RDW Coeff of Kandis 15.8 H, Plt Count 320, MPV 9.3, Immature Gran % (Auto) 0.400, Neut % (Auto) 75.3 H, Lymph % (Auto) 7.4 L, [place]he % (Auto) 14.3 H, Eos % (Auto) 2.2, Baso % (Auto) 0.4, Absolute Neuts (auto) 5.2, Absolute Lymphs (auto) 0.51 L, Nucleated RBC % 0, Hypochromasia 1+ 11/13/20 06:00: PT 15.1 H, INR 1.3 11/13/20 06:00: Sodium 126 L, Potassium 4.5, Chloride 92 L, Carbon Dioxide 27.0, Anion Gap 7, BUN 30 H, Creatinine 5.73 H, Estim Creat Clear Calc 15.42, Est GFR (MDRD) Af Amer 13 L, Est GFR (MDRD) Non-Af 11 L, BUN/Creatinine Ratio 5.2 L, Glucose 444 H, Calcium 7.9 L 11/13/20 06:19: POC Glucose 415 H Microbiology: Microbiology 11/05/20 10:30 Interface Orders SARS-CoV-2 Antigen (Rapid) - Final Meaningful Use Info Meaningful Use Diagnoses (Choose all that apply): CHF CHF MAXWELL/ARB ordered at discharge?: No Reason MAXWELL/ARB not ordered?: Worsening renal function Documented LVEF (%): 60 Discharge Plan Admission Admit Date/Time: 11/05/20 12:24 Primary Reason for Your Visit: Acute hypoxic respiratory failure secondary to acute on chronic CHF Attending Provider: Anabelle Moore Primary Care Provider: Judith Dockery Consulting Providers: Manjit Milligan ; Gurvinder Vinson Instructions Patient Instructions: Thoracentesis Dc Additional Instructions / Restrictions: Left Pleurx catheter placed 11/13/2020. Hooked to suction for drainage 2 times per week and as needed for shortness of breath. Discharge Orders/Prescriptions Prescriptions: New Lantus Solostar U-100 Insulin 100 unit/mL (3 mL) Insulin Pen 40 units subcut DAILY Qty: 0 RF: 0 oxycodone-acetaminophen [Endocet] 5-325 mg tablet 1 - 2 tab PO Q6H PRN (Reason: pain) 5 Days Qty: 30 RF: 0 Continued amlodipine 10 mg Tablet 10 mg PO DAILY RF: 0 aspirin 81 mg Tablet 81 mg PO DAILY RF: 0 Afrin (oxymetazoline) 0.05 % Mist 2 spray INTRANASAL Q12H PRN (Reason: Congestion) RF: 0 carvedilol [Coreg] 25 mg Tablet 25 mg PO BID RF: 0 polyethylene glycol 3350 17 gram Powder In Packet 17 g PO DAILY RF: 0 clonidine HCl 0.3 mg Tablet 0.3 mg PO TID RF: 0 calcium acetate(phosphat bind) 667 mg Tablet 667 mg PO BID RF: 0 torsemide 100 mg Tablet 100 mg PO DAILY RF: 0 doxazosin [Cardura] 4 mg Tablet 4 mg PO QHS RF: 0 folic acid 1 mg Tablet 1 mg PO DAILY RF: 0 insulin lispro [Humalog KwikPen Insulin] 100 unit/mL Insulin Pen 0 unit SUBCUT TID RF: 0 hydralazine 100 mg Tablet 100 mg PO TID RF: 0 isosorbide mononitrate 30 mg Tablet Extended Release 24 Hr 30 mg PO DAILY RF: 0 atorvastatin [Lipitor] 80 mg Tablet 80 mg PO DAILY RF: 0 trazodone 50 mg Tablet 50 mg PO QHS RF: 0 omeprazole 20 mg Capsule,Delayed Release(Dr/Ec) 20 mg PO BID RF: 0 B complex-vitamin C-folic acid 0.8 mg Tablet 1 tab PO DAILY RF: 0 cholecalciferol (vitamin D3) [Vitamin D3] 25 mcg (1,000 unit) Capsule 25 mcg PO DAILY RF: 0 melatonin 5 mg Tablet 5 mg PO QHS RF: 0 lorazepam [Ativan] 0.5 mg Tablet 0.5 mg PO TID PRN (Reason: Anxiety) Qty: 6 RF: 0 oxycodone-acetaminophen [Percocet] 10-325 mg Tablet 1 tab PO Q8H PRN (Reason: pain) 2 Days Qty: 5 RF: 0 Discontinued Lantus Solostar U-100 Insulin 100 unit/mL (3 mL) Insulin Pen 18 unit SUBCUT DAILY RF: 0 Referrals / Follow Up: [facility], Thoracic surgery [Other] - See Referral Note (Needs referral/follow-up with thoracic surgery at [facility] who completed prior mechanical pleurodesis via right sided thoracotomy for evaluation of the left-sided pleurodesis. Obtain appointment LILA.) [facility] [Other] - See Referral Note (As scheduled for outpatient follow-up and dialysis) Judith Dockery MD [Primary Care Provider] - In 1 Week Redd Crouch MD [NON-STAFF] - 11/19/20 11:30 am (Consult outpatient for pleurodesis for left side recurrent pleural effusions s/p left pleurex catheter placement) Care Physician,No Primary [NON-STAFF] - In 1 Week Disposition Disposition (needs filled in before D/C Order can be placed): Shelter Facility Documented by User: Dr. Anabelle Moore DO 11/14/20 16:32 Providers Date of Admission: 11/05/20 Reason For Visit: CHF, PLEURAL EFFUSIONS, ESRD DIALYSIS, IDDM Medications at Discharge Home Medications Afrin (oxymetazoline) 2 spray INTRANASAL Q12H PRN 11/05/20 B complex-vitamin C-folic acid 1 tab PO DAILY 11/05/20 amlodipine 10 mg PO DAILY 11/05/20 aspirin 81 mg PO DAILY 11/05/20 atorvastatin [Lipitor] 80 mg PO DAILY 11/05/20 calcium acetate(phosphat bind) 667 mg PO BID 11/05/20 carvedilol [Coreg] 25 mg PO BID 11/05/20 cholecalciferol (vitamin D3) [Vitamin D3] 25 mcg PO DAILY 11/05/20 clonidine HCl 0.3 mg PO TID 11/05/20 doxazosin [Cardura] 4 mg PO QHS 11/05/20 folic acid 1 mg PO DAILY 11/05/20 hydralazine 100 mg PO TID 11/05/20 insulin lispro [Humalog KwikPen Insulin] 0 unit SUBCUT TID 11/05/20 isosorbide mononitrate 30 mg PO DAILY 11/05/20 melatonin 5 mg PO QHS 11/05/20 omeprazole 20 mg PO BID 11/05/20 polyethylene glycol 3350 17 g PO DAILY 11/05/20 torsemide 100 mg PO DAILY 11/05/20 trazodone 50 mg PO QHS 11/05/20 insulin glargine [Lantus Solostar U-100 Insulin] 40 units SUBCUT DAILY #0 ml 11/13/20 lorazepam [Ativan] 0.5 mg PO TID PRN #6 tab 11/13/20 oxycodone-acetaminophen [Percocet] 1 tab PO Q8H PRN 2 Days #5 tab 11/13/20 oxycodone-acetaminophen [Endocet] 1 - 2 tab PO Q6H PRN 5 Days #30 tab 11/14/20 Hospital Course Summary of Care Provided Minutes Spent on Discharge: 45 Hospital Course: Assessment: Acute hypoxic respiratory failure Acute on chronic exacerbation of diastolic CHF Recurrent large pleural effusion-transudative End-stage renal disease-HD dependent Hypertension DM-2 Hyperlipidemia Right BKA Chronic anemia GERD Debility Plan: -Discussed case with nephrology -They feel that he is euvolemic intravascularly an extra dialysis will likely not be beneficial -Patient follows with Dr. Hutchinson in [place] -Patient with 3 left thoracentesis during his hospitalization that resulted in 2.2 L, 400 cc, and 2.2 L fluid removals -With rapidity of recurrence and large volumes the decision was made to place a Pleurx catheter -This was done on 11/13/2020 -Catheter will need drained 2 times a week and as needed -Will need to follow-up with CT surgery at [facility] for further evaluation and consideration for VATS pleurodesis -Patient has had this procedure performed for recurrent pleural effusions on the right side -Continue fluid restriction/salt restriction -Echocardiogram was performed on 11/09/2020 and shows an EF of 60% with moderate concentric LVH and stage II diastolic dysfunction, biatrial enlargement -We have had issues with intermittent compliance and patient was found pocketing his antihypertensives at one point during his hospitalization -He is to follow-up with nephrology, CT surgery, and his primary care physician after discharge Physical Exam Const alert, oriented x3 and no apparent distress Constitutional Narrative: Middle-aged -[place] male sitting up in a chair eating breakfast on room air, dialysis nurses at bedside getting set up for dialysis General Appearance: cooperative, comfortable and well developed Orientation / Consciousness: awake, oriented to person, oriented to place and oriented to time Exam Limitations: no limitations HEENT normocephalic, head/scalp atraumatic and hearing grossly normal bilaterally Eyes PERRL, EOMs intact bilaterally and conjunctivae normal Neck no lymphadenopathy, supple and no JVD Resp normal respiratory effort, no retractions, no use of accessory muscles and clear to auscultation bilaterally Resp Narrative: Left base is much improved with aeration since Pleurx placement, drain currently in place Auscultation: diminished lung sounds; Negative for crackles, rales, rhonchi or wheezes Cardio regular rate, regular rhythm, S1 normal heart sound, S2 normal heart sound, no murmurs, no rub, no gallops, no clicks and no JVD Peripheral Pulses: pulses 2+ throughout GI normal to inspection, nondistended, normoactive bowel sounds, soft to palpation, non-tender and non-distended Extremity normal to inspection, full ROM and no clubbing, cyanosis or edema Extremity Narrative: Right BKA, left upper extremity fistula with thrill and bruit Skin no rashes or lesions noted, no wounds, skin turgor normal, no jaundice, no petechiae and no mottling Skin Narrative: Old VATS scar noted on the right chest [id number] Lesions: no lesions Rashes: no rashes Trauma: no lacerations or abrasions Neuro oriented x3, moves all extremities, no focal motor deficits and deep tendon reflexes 2+ bilaterally Sensorium / Orientation: awake and alert Speech: speech normal Psych mental status grossly normal and affect normal ABG / Lab / Microbiology Data Result Diagrams: 11/14/20 06:20 11/14/20 06:20 Discharge Plan Admission Admit Date/Time: 11/05/20 12:24 Primary Reason for Your Visit: Acute hypoxic respiratory failure secondary to acute on chronic CHF Attending Provider: Anabelle Moore Primary Care Provider: Judith Dockery Consulting Providers: Manjit Milligan ; Gurvinder Vinson Instructions Patient Instructions: Thoracentesis Dc Additional Instructions / Restrictions: Left Pleurx catheter placed 11/13/2020. Hooked to suction for drainage 2 times per week and as needed for shortness of breath. Discharge Orders/Prescriptions Prescriptions: New Lantus Solostar U-100 Insulin 100 unit/mL (3 mL) Insulin Pen 40 units subcut DAILY Qty: 0 RF: 0 oxycodone-acetaminophen [Endocet] 5-325 mg tablet 1 - 2 tab PO Q6H PRN (Reason: pain) 5 Days Qty: 30 RF: 0 Continued amlodipine 10 mg Tablet 10 mg PO DAILY RF: 0 aspirin 81 mg Tablet 81 mg PO DAILY RF: 0 Afrin (oxymetazoline) 0.05 % Mist 2 spray INTRANASAL Q12H PRN (Reason: Congestion) RF: 0 carvedilol [Coreg] 25 mg Tablet 25 mg PO BID RF: 0 polyethylene glycol 3350 17 gram Powder In Packet 17 g PO DAILY RF: 0 clonidine HCl 0.3 mg Tablet 0.3 mg PO TID RF: 0 calcium acetate(phosphat bind) 667 mg Tablet 667 mg PO BID RF: 0 torsemide 100 mg Tablet 100 mg PO DAILY RF: 0 doxazosin [Cardura] 4 mg Tablet 4 mg PO QHS RF: 0 folic acid 1 mg Tablet 1 mg PO DAILY RF: 0 insulin lispro [Humalog KwikPen Insulin] 100 unit/mL Insulin Pen 0 unit SUBCUT TID RF: 0 hydralazine 100 mg Tablet 100 mg PO TID RF: 0 isosorbide mononitrate 30 mg Tablet Extended Release 24 Hr 30 mg PO DAILY RF: 0 atorvastatin [Lipitor] 80 mg Tablet 80 mg PO DAILY RF: 0 trazodone 50 mg Tablet 50 mg PO QHS RF: 0 omeprazole 20 mg Capsule,Delayed Release(Dr/Ec) 20 mg PO BID RF: 0 B complex-vitamin C-folic acid 0.8 mg Tablet 1 tab PO DAILY RF: 0 cholecalciferol (vitamin D3) [Vitamin D3] 25 mcg (1,000 unit) Capsule 25 mcg PO DAILY RF: 0 melatonin 5 mg Tablet 5 mg PO QHS RF: 0 lorazepam [Ativan] 0.5 mg Tablet 0.5 mg PO TID PRN (Reason: Anxiety) Qty: 6 RF: 0 oxycodone-acetaminophen [Percocet] 10-325 mg Tablet 1 tab PO Q8H PRN (Reason: pain) 2 Days Qty: 5 RF: 0 Discontinued Lantus Solostar U-100 Insulin 100 unit/mL (3 mL) Insulin Pen 18 unit SUBCUT DAILY RF: 0 Referrals / Follow Up: [facility], Thoracic surgery [Other] - See Referral Note (Needs referral/follow-up with thoracic surgery at [facility] who completed prior mechanical pleurodesis via right sided thoracotomy for evaluation of the left-sided pleurodesis. Obtain appointment LILA.) [facility] [Other] - See Referral Note (As scheduled for outpatient follow-up and dialysis) Judith Dockery MD [Primary Care Provider] - In 1 Week Redd Crouch MD [NON-STAFF] - 11/19/20 11:30 am (Consult outpatient for pleurodesis for left side recurrent pleural effusions s/p left pleurex catheter placement) Care Physician,No Primary [NON-STAFF] - In 1 Week Disposition Disposition (needs filled in before D/C Order can be placed): Shelter Facility Charges/Coding Visit Charges Inpatient E&M: 24736 SNF Disch >30 Min
[2020-11-13] MEDS: Cefazolin 2 GM in 0.9% Normal Saline 100 ML IV (12:31)
--- NOTE | 2020-11-13 13:19 | OP.PCM_ITS ---
Problems Associated Problem List Diagnoses (1) Recurrent pleural effusion on left: Report of Operation Date of Procedure: 11/13/20 Pre-Operative Diagnosis: Recurrent, transudate left pleural effusions Post-Operative Diagnosis: Recurrent, transudate left pleural effusions + hemothorax Surgery/Procedure Performed:: Insertion of 15.5 [place] Pleurx catheter Description of Surgical Findings:: ?Serosanguineous output from left pleural space with a volume of 2 L. ?No airleak seen on Pleur-evac system Surgeon: Manjit Milligan Type of Anesthesia: MAC/Supplemental/Local Anesthesiologist: Espinoza Armstrong Drains: PleurX catheter and pleurvac drainage system Estimated Blood Loss (mL): <5 Description of Procedure: After proper identification in the preoperative holding area the patient was brought to the operating room. He was kept on his hospital bed while monitored anesthesia care was provided. He was also administered preoperative antibiotic. Then the patient was rolled onto his right side in a right lateral decubitus position. His left side was prepped and draped in usual sterile fashion with blue towels. A timeout was conducted to confirm both the patient and the procedure. I then selected my insertion site in the midaxillary line at the nipple level and raised a wheal of local anesthetic with 1% lidocaine. A small incision was made at this point and using a Seldinger technique I percutaneously accessed the pleural space leaving the guidewire. Inferomedially a counterincision was made approximately 5 cm from the insertion site of the guidewire and the interposed tissue was infiltrated with additional local anesthetic. The Pleurx catheter was fit onto the end of a blunt tunneler and the catheter was tunneled to the insertion site. Then the insertion site was serially dilated and the catheter was placed into the peel- away sheath and ultimately inserted into the pleural cavity. The catheter was adjusted to remove any kinking and I confirmed that the subcutaneous cuff was indeed located beneath the skin near the counterincision. The catheter was connected to suction and there was immediate output of 2 L serosanguineous fluid. The insertion site incision was closed with a 3-0 Vicryl in a subcuticular fashion. Dermabond was applied to seal this incision. Then the kit?provided dressing of foam and large Tegaderm were placed over the catheter. Once we are convinced the initial drainage was complete the catheter was connected to a Pleur-evac system set at [facility]. Patient was then aroused from sedation and transferred to PACU for ongoing recovery. In PACU a chest x- ray will be performed to confirm positioning and evaluate for post treatment results. Complications None Admit VTE Documentation VTE Present on Admission: Yes VTE Mechan Device Prophylaxis: SCD's
--- NOTE | 2020-11-13 13:23 | RAD_ITS ---
STUDY: X-RAY CHEST REASON FOR EXAM: Male, 60 years old. SURGERY TECHNIQUE: Single AP portable view of the chest. COMPARISON: Comparison is made with prior study 11/10/2020. FINDINGS: The patient is status post left Pleurx catheter placement. The catheter is seen at the left lung base. There is a decrease in the left pleural effusion. Residual blunting of left costophrenic angle as well as increased markings in the left upper lobe and left lower lobe persists. Small amount of fluid is loculated along the medial aspect of the left lung apex. Stable pleural parenchymal changes at the right lung base. RAD/Chest 1 View IMPRESSION: Status post left Pleurx catheter placement with decreased left pleural effusion. Electronically Signed: Que Grey MD at 14:02 EDT , Service support ,
[2020-11-13 14:31] LABS: Bedside Glucose 389 mg/dL (70-110)
--- NOTE | 2020-11-13 14:36 | PCM.PN.HOSP ---
Documented by User: Noemi French NP, MEMBER SERVICES REPRESENTATIVE-C 11/13/20 14:39 Subjective Subjective Patient seen and examined. To undergo Pleurx catheter placement. Plan is to discharge to [facility] however dialysis schedule at [facility] is Monday, Monday, Monday. He was previously Monday, , Monday schedule. He will undergo dialysis tomorrow and then continue dialysis on Monday at [facility]. He denies new symptoms or complaints. Objective Data Objective Data Vital Signs: Vital Signs Temp Pulse Resp BP Pulse Ox 98.0 F 70 18 135/58 H 4 11/13/20 14:20 11/13/20 14:20 11/13/20 14:20 11/13/20 14:20 11/13/20 14:20 Oxygen Flow Rate (L/min) [3] 4 Oxygen Flow Rate (L/min) [2] 4 Oxygen Flow Rate (L/min) [1 ( 4 Initial Baseline)] Oxygen Flow Rate (L/min) [ 2 AMBULATING with Oxygen #1] Oxygen Flow Rate (L/min) [At 2 REST with Oxygen] Oxygen Flow Rate (L/min) [At 0 REST on Room Air] Oxygen Flow Rate (L/min) 2 Oxygen Delivery Method [4] Room Air Oxygen Delivery Method [3] Room Air Oxygen Delivery Method [2] Room Air Oxygen Delivery Method [1 ( Room Air Initial Baseline)] Oxygen Delivery Method Nasal Cannula Weight: 193 lb 12.581 oz Body Mass Index (BMI) 28.4 Intake & Output: Intake and Output for Last 24 Hours 11/11/20 11/12/20 11/13/20 23:59 23:59 23:59 Intake Total 1200 / 1440 900 / 1050 150 / 150 Output Total 2 / 2 4200 / 4200 15 / 15 Balance 1198 / 1438 -3300 / -3150 135 / 135 Lab / Micro Data Result Diagrams: 11/13/20 06:00 11/13/20 06:00 Labs: Laboratory Results - last 24 hr 11/12/20 17:51: POC Glucose 279 H 11/12/20 21:25: POC Glucose 377 H 11/13/20 06:00: WBC 6.9, RBC 2.45 L, Hgb 6.5 L, Hct 20.7 L, MCV 84.5, MCH 26.5 L, MCHC 31.4 L, RDW Std Deviation 48.1 H, RDW Coeff of Kandis 15.8 H, Plt Count 320, MPV 9.3, Immature Gran % (Auto) 0.400, Neut % (Auto) 75.3 H, Lymph % (Auto) 7.4 L, [place] % (Auto) 14.3 H, Eos % (Auto) 2.2, Baso % (Auto) 0.4, Absolute Neuts (auto) 5.2, Absolute Lymphs (auto) 0.51 L, Nucleated RBC % 0, Hypochromasia 1+ 11/13/20 06:00: PT 15.1 H, INR 1.3 11/13/20 06:00: Sodium 126 L, Potassium 4.5, Chloride 92 L, Carbon Dioxide 27.0, Anion Gap 7, BUN 30 H, Creatinine 5.73 H, Estim Creat Clear Calc 15.42, Est GFR (MDRD) Af Amer 13 L, Est GFR (MDRD) Non-Af 11 L, BUN/Creatinine Ratio 5.2 L, Glucose 444 H, Calcium 7.9 L 11/13/20 06:19: POC Glucose 415 H 11/13/20 11:42: POC Glucose 389 H Micro: Microbiology 11/05/20 10:30 Interface Orders SARS-CoV-2 Antigen (Rapid) - Final Radiography Diagnostic Testing: Radiology Impression Chest X-Ray 11/13/20 13:23 IMPRESSION: Status post left Pleurx catheter placement with decreased left pleural effusion. Electronically Signed: Que Grey MD at 14:02 EDT , Service support , Rhythm Strip Rhythm Strip: Sinus Rhythm Rate: 64 Ectopy: None Physical Exam Const alert, oriented x3 and no apparent distress Orientation / Consciousness: awake, oriented to person, oriented to place and oriented to time HEENT normocephalic and moist oral mucous membranes Eyes PERRL, EOMs intact bilaterally and conjunctivae normal Neck no lymphadenopathy Resp normal respiratory effort and clear to auscultation bilaterally Cardio regular rate, regular rhythm and no murmurs Peripheral Pulses: pulses 2+ throughout GI normal to inspection, nondistended, normoactive bowel sounds, non-tender and non-distended Extremity normal to inspection Extremity Narrative: Right BKA Skin no rashes or lesions noted Lesions: no lesions Rashes: no rashes Trauma: no lacerations or abrasions Neuro CN's II-XII intact bilaterally, no focal motor deficits, no sensory deficits noted and deep tendon reflexes 2+ bilaterally Psych mental status grossly normal and affect normal Assessment & Plan Assessment/Plan (1) Acute and chronic respiratory failure with hypoxia: PLAN: 1. Acute hypoxic respiratory failure secondary to acute on chronic heart failure with preserved ejection fraction with recurrent large pleural effusion, complicated by ESRD-continue supplemental oxygen to maintain O2 at above 90%. 2. Acute on chronic heart heart failure with preserved ejection fraction-echocardiogram 11/09/2020 demonstrated an EF of 60%, stage II diastolic dysfunction, moderate LVH, biatrial enlargement. Continue Lasix, dialysis. Patient has upcoming follow-up with cardiology. 3. Recurrent large pleural effusion, transudate-general surgery consulted. Pleurx catheter placement 11/13/2020. [facility] for left-sided pleurodesis. 4. End-stage renal disease on hemodialysis-continue outpatient follow-up with nephrology/dialysis. 5. Hypertension-stable, continue current regimen. 6. Hyperlipidemia-continue statin. 7. Type 2 diabetes mellitus- Noncompliant with insulin regimen. Insulin regimen adjusted. 8. Acute on chronic anemia of chronic disease- 1 unit PRBC during admission. Patient received Retacrit x1 per nephrology. Trend CBC 9. GERD-continue PPI. 10. Debility/history of right BKA-PT/OT. SNF at discharge. DVT prophylaxis-Lovenox subcu Discharge: SNF following dialysis 11/14/2020. This patient was seen by Noemi French NP-C under the supervision of Dr. Moore. Documented by User: Dr. Anabelle Moore DO 11/13/20 14:58 Subjective Subjective This patient was seen in conjunction with Noemi French NP. The following represents my own independent history and physical examination. Please see below for any addendum to the above. Patient states not having any issues right now. We again discussed the overall plan for Pleurx catheter and then probable discharge with outpatient follow-up to CT surgery to be evaluated for VATS pleurodesis on the left. He and I have had multiple conversations with regards to the plan but he seems to have difficulty retaining the information. 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 Objective Data Lab / Micro Data Result Diagrams: 11/13/20 06:00 11/13/20 06:00 Physical Exam Const alert, oriented x3 and no apparent distress Constitutional Narrative: Middle-aged -[place] male sitting up in a chair eating breakfast on room air General Appearance: cooperative Orientation / Consciousness: awake, oriented to person, oriented to place and oriented to time Exam Limitations: no limitations HEENT normocephalic, head/scalp atraumatic and hearing grossly normal bilaterally Head and Scalp: normocephalic Resp normal respiratory effort, no retractions, no use of accessory muscles and clear to auscultation bilaterally Resp Narrative: Diminished left base Auscultation: diminished lung sounds; Negative for crackles, rales, rhonchi or wheezes Cardio regular rate, regular rhythm, S1 normal heart sound, S2 normal heart sound, no murmurs, no rub, no gallops, no clicks and no JVD Peripheral Pulses: pulses 2+ throughout GI normal to inspection, nondistended, normoactive bowel sounds, soft to palpation, non-tender and non-distended GI Narrative: mild abdominal distension with positive fluid thrill. Extremity normal to inspection, full ROM and no clubbing, cyanosis or edema Extremity Narrative: Right BKA Skin Lesions: no lesions Rashes: no rashes Trauma: no lacerations or abrasions Neuro oriented x3, moves all extremities, no focal motor deficits and deep tendon reflexes 2+ bilaterally Sensorium / Orientation: awake and alert Speech: speech normal Psych mental status grossly normal Assessment & Plan Assessment/Plan (1) Recurrent pleural effusion on left: (2) Anemia: PLAN: Assessment: Acute hypoxic respiratory failure Acute on chronic exacerbation of diastolic CHF Recurrent large pleural effusion-transudative End-stage renal disease-HD dependent Hypertension DM-2 Hyperlipidemia Right BKA Chronic anemia GERD Debility Plan: -Discussed case with nephrology -They feel that he is euvolemic intravascularly an extra dialysis will likely not be beneficial -Patient follows with Dr. Hutchinson in [place] -continue p.o. Lasix 80 mg twice daily -left thoracentesis 11/09/2020 with 400 cc removal -A.m. CT from 11/11/2020 showed recurrence of a left pleural effusion that is large and partially loculated with compressive atelectasis and a pleural-based stable ovoid heterogeneous lesion with calcification -General surgery has placed a Pleurx catheter on the left side today -Hemoglobin 6.5 from 7.1 yesterday--> suspect volume related -1 unit packed red blood cells today -Repeat a.m. CBC -Continue fluid restriction/salt restriction -Echocardiogram was performed on 11/09/2020 and shows an EF of 60% with moderate concentric LVH and stage II diastolic dysfunction, biatrial enlargement -We will increase basal insulin to 40 units daily continue to evaluate blood sugars -Blood sugars are markedly elevated today but I suspect this is more related to patient noncompliance as we have had up titrations in his Lantus will follow and adjust tomorrow if needed -Discharge today was delayed secondary to change in dialysis schedule at his skilled facility -Plan is to dialyze tomorrow and then discharge to new SNF Charges/Coding Visit Charges Inpatient E&M: 53003 Subs Hosp L2
--- NOTE | 2020-11-13 14:50 | CASEMGMT ---
Addendum entered by Juli Ladd 11/13/20 16:29: PAMELA let patient know that he will be going to [facility] tomorrow. PAMELA told him that if the ambulance will not take all of his stuff [facility] said they will lock it up in his vehicle. He was in agreement with this. [facility] spoke with one of patient's family members and they will be picking up patient's vehicle. Juli PFEIFFER Original Note: PAMELA sent updates to [facility]. Patient needs dialysis Monday. PAMELA called Charmaine at [facility] and they cannot dialyze patient on Monday as they run their patient's M,W, and F. PAMELA told her patient will get his dialysis here tomorrow and then we will send him tomorrow. Green sheet on chart. SW will let patient know above. Plan: d/c to [facility] under skilled level of care. Juli PFEIFFER
[2020-11-13] MEDS: Ondansetron 4 MG/2 ML Vial IV (15:11)
[2020-11-13] MEDS: 0.9% Saline Lock 10 ML Syringe IV ×3 (15:12→19:22)
[2020-11-13 15:43] LABS: Glucose, Body Fluid 212 mg/dL (40-70)
[2020-11-13 16:25] LABS: Bedside Glucose 239 mg/dL (70-110)
--- NOTE | 2020-11-13 16:30 | CASEMGMT ---
PAMELA had called [facility] earlier to obtain the 7000 or PASRR that was done. PAMELA received a return call from Corie and she said there is nothing in his file. PAMELA completed a 7000 on [facility]. Juli PFEIFFER
[2020-11-13] MEDS: Carvedilol 25 MG Tablet PO (16:38)
[2020-11-13] MEDS: Calcium Acetate 667 MG Capsule PO (16:38)
[2020-11-13] MEDS: Sodium Chloride 0.65% 1 SPRAY SPRAY.BTL 2 SPRAY NASAL (19:05)
[2020-11-13] MEDS: Furosemide 80 MG Tablet PO (19:22)
[2020-11-13] MEDS: hydrALAZINE 50 MG Tablet 100 MG PO (21:50)
[2020-11-13] MEDS: cloNIDine HCl 0.1 MG Tablet 0.3 MG PO (21:50)
[2020-11-13] MEDS: Atorvastatin Calcium 80 MG Tablet PO (21:51)
[2020-11-13] MEDS: traZODone 50 MG Tablet PO (21:51)
[2020-11-13] MEDS: Pantoprazole Sodium 20 MG Tablet PO (21:52)
[2020-11-13] MEDS: Isosorbide Mononitrate 30 MG Tablet PO (21:52)
[2020-11-13] MEDS: MELATONIN 10 MG TABLET 5 MG PO (21:53)
[2020-11-13] MEDS: Doxazosin 4 MG Tablet PO (21:59)
[2020-11-13 22:17] LABS: Bedside Glucose 312 mg/dL (70-110)
[2020-11-14] VITALS (10 sets, daily range): BP systolic 134–143; BP diastolic 53–65; PULSE 69–79; RESP 12–18; TEMP 36.4; O2SAT 92–96
[2020-11-14] MEDS: Ipratropium/Albuterol Sulfate 3 ML AMPUL.NEB INHALATION (02:05)
[2020-11-14] MEDS: cloNIDine HCl 0.1 MG Tablet 0.3 MG PO (06:27)
[2020-11-14] MEDS: Insulin Lispro 100 UNIT/ML INSULN.PEN SC (06:27)
[2020-11-14] MEDS: hydrALAZINE 50 MG Tablet 100 MG PO (06:28)
[2020-11-14 06:32] LABS: Absolute Lymphocyte Count 0.54 X10^3/uL (0.83-4.51); Absolute Neutrophil Count 4.6 X10^3/uL (2.0-7.7); Basophil# 0.03 X10^3/uL; Basophil% 0.5 % (0-1); Eosinophil# 0.27 X10^3/uL; Eosinophils% 4.4 % (0-5); Hematocrit 22.9 % (40-54); Hemoglobin 7.3 g/dL (13.0-16.5); Lymphocyte # 0.54 X10^3/ul (0.83-4.51); Lymphocyte % 8.8 % (19-41); Mean Corp Hgb Conc 31.9 g/dL (32-36); Mean Corpuscular Volume 84.8 fL (80-94); Mean Platelet Vol. 8.7 fl (6.2-12.0); Monocyte% 11.4 % (0-10); NRBC Flagged by Analyzer 0 % (0-5); Neutrophil # 4.58 X10^3/uL (2.7-7.7); Neutrophil % 74.6 % (47-70); POSITIVE DIFFERENTIAL YES; Platelet Count 313 K/mm3 (150-450); RBC Distribution Width CV 15.4 % (11.6-14.6); RBC Distribution Width SD 46.8 fl (35.1-43.9); White Blood Count 6.1 K/mm3 (4.4-11.0)
[2020-11-14 06:37] LABS: Differential Indicated SCAN CRITERIA MET
[2020-11-14 06:45] LABS: Bedside Glucose 303 mg/dL (70-110)
[2020-11-14 06:58] LABS: Differential Comment SCANNED
[2020-11-14 07:02] LABS: Anion Gap 10 (5-15); BUN 38 mg/dL (7-18); BUN/Creat Ratio 5.4 RATIO (10-20); Chloride 92 mmol/L (98-107); Creatinine, Serum 7.07 mg/dL (0.70-1.30); EST Glomerular Filtration Rate 9 mL/min (>60); Est Glom Filt Rate - Afr Amer 10 mL/min (>60); Glucose 317 mg/dL (74-106); Potassium 4.5 mmol/L (3.5-5.1); Sodium Level 128 mmol/L (136-145)
--- NOTE | 2020-11-14 07:04 | PCM.PN.SRG ---
Subjective Subjective Pt pleurx catheter to pleurovac- sang. pt c/o pain at catheter site w deep breath Objective Data Objective Data Vital Signs: Vital Signs Temp Pulse Resp BP Pulse Ox 97.6 F L 70 18 143/65 H 92 11/14/20 06:36 11/14/20 06:36 11/14/20 06:36 11/14/20 06:36 11/14/20 06:36 Oxygen Flow Rate (L/min) [3] 4 Oxygen Flow Rate (L/min) [2] 4 Oxygen Flow Rate (L/min) [1 ( 4 Initial Baseline)] Oxygen Flow Rate (L/min) [ 2 AMBULATING with Oxygen #1] Oxygen Flow Rate (L/min) [At 2 REST with Oxygen] Oxygen Flow Rate (L/min) [At 0 REST on Room Air] Oxygen Flow Rate (L/min) 2 Oxygen Delivery Method [4] Room Air Oxygen Delivery Method [3] Room Air Oxygen Delivery Method [2] Room Air Oxygen Delivery Method [1 ( Room Air Initial Baseline)] Oxygen Delivery Method Room Air Weight: 187 lb 13.341 oz Body Mass Index (BMI) 28.4 Intake & Output: Intake and Output for Last 24 Hours 11/12/20 11/13/20 11/14/20 23:59 23:59 23:59 Intake Total 900 / 1050 760 / 760 325 / 325 Output Total 4200 / 4200 268 / 268 170 / 170 Balance -3300 / -3150 492 / 492 155 / 155 Lab / Micro Data Result Diagrams: 11/14/20 06:20 11/14/20 06:20 Labs: Laboratory Results - last 24 hr 11/06/20 14:25: Fluid Glucose 212 H 11/13/20 06:00: Hypochromasia 1+ 11/13/20 06:00: Sodium 126 L, Potassium 4.5, Chloride 92 L, Carbon Dioxide 27.0, Anion Gap 7, BUN 30 H, Creatinine 5.73 H, Estim Creat Clear Calc 15.42, Est GFR (MDRD) Af Amer 13 L, Est GFR (MDRD) Non-Af 11 L, BUN/Creatinine Ratio 5.2 L, Glucose 444 H, Calcium 7.9 L 11/13/20 11:42: POC Glucose 389 H 11/13/20 14:30: Blood Type B POSITIVE, Antibody Screen NEGATIVE, Crossmatch See Detail 11/13/20 16:23: POC Glucose 239 H 11/13/20 22:00: POC Glucose 312 H 11/14/20 06:20: WBC 6.1, RBC 2.70 L, Hgb 7.3 L, Hct 22.9 L, MCV 84.8, MCH 27.0, MCHC 31.9 L, RDW Std Deviation 46.8 H, RDW Coeff of Kandis 15.4 H, Plt Count 313, MPV 8.7, Immature Gran % (Auto) 0.300, Neut % (Auto) 74.6 H, Lymph % (Auto) 8.8 L, [place] % (Auto) 11.4 H, Eos % (Auto) 4.4, Baso % (Auto) 0.5, Absolute Neuts (auto) 4.6, Absolute Lymphs (auto) 0.54 L, Nucleated RBC % 0, Differential Comment SCANNED 11/14/20 06:20: Sodium 128 L, Potassium 4.5, Chloride 92 L, Carbon Dioxide 26.0, Anion Gap 10, BUN 38 H, Creatinine 7.07 H, Estim Creat Clear Calc 12.50, Est GFR (MDRD) Af Amer 10 L, Est GFR (MDRD) Non-Af 9 L, BUN/Creatinine Ratio 5.4 L, Glucose 317 H, Calcium 8.0 L 11/14/20 06:27: POC Glucose 303 H Micro: Microbiology 11/05/20 10:30 Interface Orders SARS-CoV-2 Antigen (Rapid) - Final Radiography Diagnostic Testing: Radiology Impression Chest X-Ray 11/13/20 13:23 IMPRESSION: Status post left Pleurx catheter placement with decreased left pleural effusion. Electronically Signed: Que Grey MD at 14:02 EDT , Service support , Rhythm Strip Rhythm Strip: Sinus Rhythm Rate: 64 Ectopy: None Physical Exam Narrative Left abd- pleurx catheter in place, dressed Assessment & Plan Assessment/Plan (1) Recurrent pleural effusion on left: PLAN: s/p left Pleurx catheter placement. Patient complains of pain at that site will increase his oxycodone to 1-2 every 4 hours as needed. We will send a prescription as well. Patient does have a follow-up with thoracic surgeon for definitive management. Nika Lai M.D. Pager: [phone] [facility] [address] [place] [address], [address] [place] [address] Office: [phone]
[2020-11-14] MEDS: oxyCODONE 5 MG Tablet PO ×2 (07:20→13:34)
[2020-11-14] MEDS: LORazepam 0.5 MG Tablet PO (09:29)
[2020-11-14] MEDS: Acetaminophen 325 MG Tablet PO (13:34)
[2020-11-14] MEDS: Vitamin B Comp W-C Capsule 1 CAP PO (13:35)
[2020-11-14] MEDS: Aspirin 81 MG TAB.CHEW PO (13:36)
[2020-11-14] MEDS: Carvedilol 25 MG Tablet PO (13:38)
[2020-11-14] MEDS: Folic Acid 1 MG Tablet PO (13:38)
[2020-11-14] MEDS: Calcium Acetate 667 MG Capsule PO (13:39)
[2020-11-14] MEDS: Isosorbide Mononitrate 30 MG Tablet PO (13:39)
[2020-11-14] MEDS: Minoxidil 2.5 MG Tablet PO (13:40)
[2020-11-14] MEDS: Furosemide 80 MG Tablet PO (13:40)
[2020-11-14] MEDS: amLODIPine 10 MG Tablet PO (13:41)
[2020-11-14] MEDS: Pantoprazole Sodium 20 MG Tablet PO (13:41)
[2020-11-14] MEDS: Cholecalciferol (VIT D3) 25 MCG TABLET (1,000 UNITS) PO (13:43)
--- NOTE | 2020-11-14 13:55 | DIALYSIS ---
Hemodialysis x 4hrs today. UF -4000mL removed. Pt tolerated tx well. See dialysis flowsheet for details. Report to DALIA Solis. Pt stable
--- NOTE | 2020-11-14 16:15 | NURSING ---
Attempted to call report for pt transfer to [facility]. Phone rang for an extended time and then placed on hold for 5 minutes. Will attempt to call report at a later time.
--- NOTE | 2020-11-14 16:19 | PN.RENAL_ITS ---
Subjective Subjective Following for ESRD. The patient was dialyzed earlier today. The patient denies current chest pain or shortness of breath. There has been no further increase in lower extremity edema. He is scheduled to be discharged to [facility]. He will be transported to his usual dialysis center on 11/16/2020. Objective Data Objective Data Vital Signs: Vital Signs Temp Pulse Resp BP Pulse Ox 97.6 F L 78 18 143/65 H 92 11/14/20 16:06 11/14/20 16:06 11/14/20 16:06 11/14/20 16:06 11/14/20 16:06 Oxygen Flow Rate (L/min) [3] 4 Oxygen Flow Rate (L/min) [2] 4 Oxygen Flow Rate (L/min) [1 ( 4 Initial Baseline)] Oxygen Flow Rate (L/min) [ 2 AMBULATING with Oxygen #1] Oxygen Flow Rate (L/min) [At 2 REST with Oxygen] Oxygen Flow Rate (L/min) [At 0 REST on Room Air] Oxygen Flow Rate (L/min) 2 Oxygen Delivery Method [4] Room Air Oxygen Delivery Method [3] Room Air Oxygen Delivery Method [2] Room Air Oxygen Delivery Method [1 ( Room Air Initial Baseline)] Oxygen Delivery Method Room Air Weight: 85.2 kg Body Mass Index (BMI) 28.4 Intake & Output: Intake and Output for Last 24 Hours 11/12/20 11/13/20 11/14/20 23:59 23:59 23:59 Intake Total 900 / 1050 760 / 760 325 / 325 Output Total 4200 / 4200 268 / 268 185 / 185 Balance -3300 / -3150 492 / 492 140 / 140 Lab / Micro Data Result Diagrams: 11/14/20 06:20 11/14/20 06:20 Labs: Laboratory Results - last 24 hr 11/13/20 14:30: Blood Type B POSITIVE, Antibody Screen NEGATIVE, Crossmatch See Detail 11/13/20 16:23: POC Glucose 239 H 11/13/20 22:00: POC Glucose 312 H 11/14/20 06:20: WBC 6.1, RBC 2.70 L, Hgb 7.3 L, Hct 22.9 L, MCV 84.8, MCH 27.0, MCHC 31.9 L, RDW Std Deviation 46.8 H, RDW Coeff of Kandis 15.4 H, Plt Count 313, MPV 8.7, Immature Gran % (Auto) 0.300, Neut % (Auto) 74.6 H, Lymph % (Auto) 8.8 L, [place] % (Auto) 11.4 H, Eos % (Auto) 4.4, Baso % (Auto) 0.5, Absolute Neuts (auto) 4.6, Absolute Lymphs (auto) 0.54 L, Nucleated RBC % 0, Differential Comment SCANNED 11/14/20 06:20: Sodium 128 L, Potassium 4.5, Chloride 92 L, Carbon Dioxide 26.0, Anion Gap 10, BUN 38 H, Creatinine 7.07 H, Estim Creat Clear Calc 12.50, Est GFR (MDRD) Af Amer 10 L, Est GFR (MDRD) Non-Af 9 L, BUN/Creatinine Ratio 5.4 L, Glucose 317 H, Calcium 8.0 L 11/14/20 06:27: POC Glucose 303 H Micro: Microbiology 11/14/20 06:45 Nasal Secretion SARS-CoV-2 Antigen (Rapid) - Final 11/05/20 10:30 Interface Orders SARS-CoV-2 Antigen (Rapid) - Final Rhythm Strip Rhythm Strip: Sinus Rhythm Rate: 64 Ectopy: None Physical Exam Narrative General: Alert and oriented x3. No apparent distress. Heart: S1-S2 RRR. Lungs: Decreased breath sound at bases, L>R Abdomen: Soft, normal bowel sounds. No tenderness on palpation. Extremity: +1-2 edema of left lower extremity, status post right BKA. No thigh edema. AV graft left upper arm positive thrill and bruit Assessment & Plan Assessment/Plan (1) End stage chronic kidney disease: PLAN: The patient usually dialyzes on TTS schedule. He is followed as outpatient by Dr. Martell. He dialyzes at [facility] in [place]. (2) Anemia: (3) CHF (congestive heart failure): (4) Hypoxia: PLAN: #Patient dialyzes on Monday, Monday and Monday outpatient. #He has been on a TTS dialysis schedule during this admission. The patient was dialyzed earlier today: 4 hours treatment, F1 60 dialyzer, blood flow 400, dialysate flow 600. #Continue to challenge weight as patient can tolerate. Dry weight not established at this time. #Recurrent pleural effusion despite more frequent dialysis last week. Patient has bilateral pleural effusions with atelectasis left side more than the right side. Status post left-sided thoracentesis. However, pleural effusion quickly reaccumulates. Pleurx catheter to be placed today. #Blood pressures acceptable on current antihypertensives. Recommend to hold blo od pressure meds mornings of dialysis #Continue calcium acetate with meals. Can monitor phosphorus levels periodically. #Hemoglobin is better at 7.3 today, will continue RONNY with HD. Anemia can be f ollowed as outpatient at kidney center. 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 Martell, regarding hospital course and treatment plan.
[2020-11-14 16:20] LABS: Bedside Glucose 226 mg/dL (70-110)
--- NOTE | 2020-11-14 18:15 | NURSING ---
Attempted to call report for pt d/c. No one answered the phone.
== END 2020-11-14 19:16 | disposition skilled nursing facility (03) | DRG 291 ==
LOC: ED 12:15 → PCU 13:11
PROVIDERS: Nurse Practitioner Family; Physician Assistant; Surgery; Admitting Provider Student in an Organized Health Care Education/Training Program; Emergency Provider Emergency Medicine; PCP Internal Medicine; Visit Provider Internal Medicine
PROC: 0W9B30Z Drainage of Left Pleural Cavity with Drainage Device, Percutaneous Approach (ICD-10-PCS; CPT 32550; principal; 2020-11-13 12:45)
DX: I13.2 Hypertensive heart and chronic kidney disease with heart failure and with stage 5 chronic kidney disease, or end stage renal disease (principal); I50.33 Acute on chronic diastolic (congestive) heart failure; N18.6 End stage renal disease; J96.01 Acute respiratory failure with hypoxia; J98.11 Atelectasis; J91.8 Pleural effusion in other conditions classified elsewhere; E11.22 Type 2 diabetes mellitus with diabetic chronic kidney disease; E78.5 Hyperlipidemia, unspecified; D63.8 Anemia in other chronic diseases classified elsewhere; K21.9 Gastro-esophageal reflux disease without esophagitis; F17.290 Nicotine dependence, other tobacco product, uncomplicated; Z79.899 Other long term (current) drug therapy; Z79.4 Long term (current) use of insulin; Z79.82 Long term (current) use of aspirin; Z89.511 Acquired absence of right leg below knee; Z99.2 Dependence on renal dialysis; Z91.14 Patient's other noncompliance with medication regimen
CPT/HCPCS: 32555; 36415; 71045; 71046; 71250; 71275; 80048; 82945; 82962; 83615; 83880; 84157; 84484; 85025; 85610; 86850; 86900; 86901; 86920; 86922; 87426; 88108; 88305; 88313; 89050; 90937; 93005; 93306; 94640; 97110; 97162; 97166; 97530; 97535; 97803; 99285; 99406; J7030; J7040; J7120; P9040; Q9967; A4216; C1729; G0257; J1940; J2405; Q5106